=== PATIENT | male | born 1965 | race Caucasian/White ===

== ENCOUNTER 2017-04-24 17:26 | Observation (INO) ==
--- NOTE | 2017-04-24 17:42 | Emergency Department Note ---
Disposition Clinical Impression: Symptomatic anemia, Thrombocytopenia, Elevated alkaline phosphatase level Disposition: Admitted As Inpatient Condition: Good General Adult HPI - General Chief complaint: ED Recheck/Abnormal Lab/Rx Stated complaint: Needs Lab work done Time Seen by Provider: 04/24/17 17:34 Source: patient Limitations: no limitations - History of Present Illness HPI Narrative: 51-year-old male history of cirrhosis followed at [facility] for gastroenterology who presents to the ER requesting lab work. Patient reports lower 70 swelling for the last 2 weeks. Patient was ready to leave town and told his doctor about the symptoms and was told to come get lab work drawn. He reports shortness of breath at home with exertion as well as nausea and dry heaving. He takes lactulose daily but did miss one week of it. No diarrhea or constipation. He denies fevers, chest pain. No history of intra-abdominal surgeries. No other complaints. Pt Subjective Complaint: Requesting labwork Onset (ago): week(s) Location: lower extremity Radiation: non-radiation Pain Severity: mild Pain Scale: 2 Quality: aching Consistency: constant Improves with: nothing Worsens with: nothing Associated symptoms: Reports: nausea/vomiting, shortness of breath. Denies: chest pain, fever/chills Treatments Prior to Arrival: none - Related Data Home Medications Medication Instructions Recorded Confirmed Atorvastatin Calcium [Lipitor] 20 mg PO HS 10/26/16 04/24/17 Bupropion HCl [Wellbutrin Xl] 300 mg PO DAILY 10/26/16 04/24/17 Ferrous Sulfate 325 mg PO BIDWM 10/26/16 04/24/17 Lisinopril 2.5 mg PO DAILY 10/26/16 04/24/17 Metformin HCl [Glucophage] 1,000 mg PO DAILY 10/26/16 04/24/17 SitaGLIPtin [Januvia] 100 mg PO DAILY 10/26/16 04/24/17 Ascorbic Acid [Vitamin C] 500 mg PO DAILY 04/24/17 04/24/17 Cholecalciferol (D-3) [Vitamin D] 1,000 unit PO DAILY 04/24/17 04/24/17 Cyanocobalamin (Vitamin B-12) 1,000 mcg PO DAILY 04/24/17 04/24/17 [Vitamin B12] Lactulose 20 gm PO DAILY 04/24/17 04/24/17 Multivitamin [Multi-Day Vitamins] 1 each PO DAILY 04/24/17 04/24/17 Ursodiol [Joshua Forte] 500 mg PO BID 04/24/17 04/24/17 Allergies Allergy/AdvReac Type Severity Reaction Status Date / Time No Known Allergies Allergy Verified 10/26/16 12:52 All systems ED: reviewed and negative except as stated. Constitutional: Denies: fever Cardiovascular: Denies: chest pain Respiratory: Reports: dyspnea. Denies: cough Gastrointestinal: Reports: nausea. Denies: abdominal pain, vomiting, diarrhea Musculoskeletal: Reports: other (lower extremity swelling) Past Medical History - Past Medical History Attestation: Yes The following information was validated with the patient. Source: patient Medical history: Reports: cirrhosis, diabetes, other Psychiatric history: Reports: no psych history - Social History Smoking Status: Current every day smoker Smokeless Tobacco Status: No Alcohol use: Reports: none Drug use: Reports: none Physical Exam - General Limitations: no limitations General appearance: alert, in no apparent distress - Head Head exam: atraumatic, normocephalic, normal inspection - Eye Eye exam: Present: normal appearance, EOMI - ENT ENT exam: normal exam - Neck Neck exam: Present: normal inspection, full ROM - Chest Chest inspection: Present: normal inspection, symmetric chest wall rise - Respiratory Respiratory exam: Present: normal lung sounds bilaterally - Cardiovascular Cardiovascular exam: Present: regular rate, normal rhythm, normal heart sounds - Abdominal Exam Abdominal exam: Present: soft, Non-Tender. Absent: tenderness - Extremities Exam Extremities exam: Present: normal inspection, full ROM - Expanded Upper Extremity Exam Shoulder exam: Present: normal inspection, full ROM Arm exam: Present: normal inspection, full ROM Elbow exam: Present: normal inspection, full ROM Forearm/Wrist exam: Present: normal inspection, full ROM Hand exam: Present: normal inspection, full ROM - Expanded Lower Extremity Exam Hip/Pelvis exam: Present: normal inspection, full ROM Upper leg exam: Present: normal inspection, full ROM Knee exam: Present: normal inspection, full ROM Lower leg exam: Present: normal inspection, full ROM Ankle exam: Present: normal inspection, full ROM Foot/toe exam: Present: normal inspection, full ROM Neurovascular/Tendon exam: Absent: motor deficit, sensory deficit - Neurological Exam Neurological exam: Present: alert, other (GCA 15. Nonfocal neurologic exam. FARAH equally) - Psychiatric Psychiatric exam: Present: normal affect, normal mood - Skin Skin exam: Present: warm, dry, intact, normal color Course Course Narrative: Patient seen and examined. Does have lower extremity edema bilaterally. We will obtain baseline labs including LFTs, INR, BNP, EKG and chest x-ray. - Reevaluation(s) Reevaluation #1: Discussed results of lab work and imaging with the patient and family. He denies any hematemesis, melena, hematochezia, hematuria or hemoptysis. He is in agreement with staying in the hospital. He is Hemoccult negative here on exam. Patient ordered 1 unit of red blood cells to transfuse. Vital Signs Temperature 98.2 F 04/24/17 17:29 Pulse Rate 107 04/24/17 17:29 Respiratory Rate 16 04/24/17 17:29 Blood Pressure 105/62 04/24/17 17:29 O2 Sat by Pulse Oximetry 100 04/24/17 17:29 Temperature 98.2 F 04/24/17 17:29 Pulse Rate 101 04/24/17 19:43 Respiratory Rate 16 04/24/17 20:00 Blood Pressure 112/62 04/24/17 20:00 O2 Sat by Pulse Oximetry 96 04/24/17 19:43 Oxygen Delivery Oxygen Delivery Room Air Medical Decision Making - MDM Narrative Medical decision making narrative: 51-year-old male presents to the ER due to dyspnea on exertion and lower show any swelling. History of cirrhosis follows with [facility] gastroenterology. His labs here demonstrate anemia with a hemoglobin of 6.3. He is Hemoccult negative here. He denies hemoptysis, melena, hematochezia, hematemesis. Patient will be admitted for symptomatic anemia. Type and screened and ordered to transfuse 1 unit starting in the emergency department. - Lab Data Lab results reviewed: Yes I reviewed the patient's lab results. Result diagrams: 04/24/17 17:47 04/24/17 17:47 Lab Results 04/24/17 04/24/17 04/24/17 Range/Units 17:47 17:47 17:47 WBC 4.6 (4.3-11.1) K/mcL RBC 2.04 L (4.19-5.50) M/mcL Hgb 6.3 L (12.9-16.9) g/dL Hct 19.4 L (37.5-50.1) % MCV 95.1 (83.0-100.0) fL MCH 30.9 (28.0-33.3) pg MCHC 32.5 (31.6-35.5) g/dL RDW 16.3 H (11.5-14.5) % Plt Count 66 L (140-400) K/mcL MPV 10.4 (9.4-12.4) fL Immature Gran % 0.6 (0-4) % Seg Neutrophils % 46.3 % Lymphocytes % 31.5 % Monocytes % 19.0 % Eosinophils % 2.2 % Basophils % 0.4 % Neutrophils # 2.1 (1.6-8.9) K/mcL Lymphocytes # 1.5 (0.6-4.6) K/mcL Monocytes # 0.9 (0.0-1.3) K/mcL Eosinophils # 0.1 (0.0-0.6) K/mcL Basophils # 0.0 (0.0-0.2) K/mcL Reactive Lymphocytes Present A (Not Present) Platelet Estimate Decreased L (Normal) Immature Plt Fraction 2.8 (1.1-6.1) % Polychromasia 1+ A (Not Present) Hypochromasia Present A (Not Present) PT 12.1 (9.4-12.1) Seconds INR 1.1 Sodium 134 L (136-145) mEq/L Potassium 4.3 (3.5-4.5) mEq/L Chloride 102 (98-109) mEq/L Carbon Dioxide 24 (19-29) mEq/L BUN 27 H (8-26) mg/dL Creatinine 1.24 (0.72-1.25) mg/dL Est GFR ( Amer) > 60 (> 60) Est GFR (Non-Af Amer) > 60 (> 60) BUN/Creatinine Ratio 22 (6-26) Glucose 230 H (70-99) mg/dL Calculated Osmolality 290 (280-300) Calcium 10.2 (8.6-10.8) mg/dL Total Bilirubin 0.5 (0.2-1.2) mg/dL AST 28 (5-34) Units/L ALT 12 (0-55) Units/L Alkaline Phosphatase 317 H (38-126) Units/L Ammonia (18-72) mcmol/L B-Natriuretic Peptide (0-100) pg/mL Serum Total Protein 6.2 (6.0-8.3) g/dL Albumin 2.1 L (3.5-5.0) g/dL Globulin 4.1 H (2.4-3.5) g/dL Albumin/Globulin Ratio 0.5 L (1.1-2.2) Blood Type Antibody Screen Crossmatch 04/24/17 04/24/17 04/24/17 Range/Units 17:47 17:49 19:09 WBC (4.3-11.1) K/mcL RBC (4.19-5.50) M/mcL Hgb (12.9-16.9) g/dL Hct (37.5-50.1) % MCV (83.0-100.0) fL MCH (28.0-33.3) pg MCHC (31.6-35.5) g/dL RDW (11.5-14.5) % Plt Count (140-400) K/mcL MPV (9.4-12.4) fL Immature Gran % (0-4) % Seg Neutrophils % % Lymphocytes % % Monocytes % % Eosinophils % % Basophils % % Neutrophils # (1.6-8.9) K/mcL Lymphocytes # (0.6-4.6) K/mcL Monocytes # (0.0-1.3) K/mcL Eosinophils # (0.0-0.6) K/mcL Basophils # (0.0-0.2) K/mcL Reactive Lymphocytes (Not Present) Platelet Estimate (Normal) Immature Plt Fraction (1.1-6.1) % Polychromasia (Not Present) Hypochromasia (Not Present) PT (9.4-12.1) Seconds INR Sodium (136-145) mEq/L Potassium (3.5-4.5) mEq/L Chloride (98-109) mEq/L Carbon Dioxide (19-29) mEq/L BUN (8-26) mg/dL Creatinine (0.72-1.25) mg/dL Est GFR ( Amer) (> 60) Est GFR (Non-Af Amer) (> 60) BUN/Creatinine Ratio (6-26) Glucose (70-99) mg/dL Calculated Osmolality (280-300) Calcium (8.6-10.8) mg/dL Total Bilirubin (0.2-1.2) mg/dL AST (5-34) Units/L ALT (0-55) Units/L Alkaline Phosphatase (38-126) Units/L Ammonia 22 (18-72) mcmol/L B-Natriuretic Peptide 14 (0-100) pg/mL Serum Total Protein (6.0-8.3) g/dL Albumin (3.5-5.0) g/dL Globulin (2.4-3.5) g/dL Albumin/Globulin Ratio (1.1-2.2) Blood Type A POSITIVE Antibody Screen NEGATIVE Crossmatch See Detail - Radiology Data Radiology results reviewed: Yes I reviewed the patient's radiology results. Chest X-Ray 04/24/17 17:41 IMPRESSION: 1. No active pulmonary disease. D/ / Jose Juan Bautista MD / Jose Juan Bautista MD Interpreting Provider: Jose Juan Bautista MD - EKG Data EKG #1 EKG attestation: Yes I reviewed and interpreted this EKG. EKG results narrative: EKG demonstrates sinus rhythm with a rate of 99 bpm. Normal axis. Normal intervals. No ST elevations or depressions. No acute ischemic findings. S.B.A.RValarie - [email or web address] Situation: Demographics, MOA Background: Presenting Complaint, Relevant PMH, Meds, & Allergies Assessment: Vital Signs, Course and respsone to treatment, Exam Concerns, Patient/Family Expectation, Pertinant Lab Results, Outstanding Labs Recommendation: Barrier(s) to disposition, Recommendation based on pending studies, treatments, or consults S.B.A.RValarie Report Given to: Dr. Nacho Smith Repor Time: 19:27 Attestation Statement - Attestation Attestation: I examined this patient and my medical decision-making was reviewed with the Resident Physician. I agree with the documented findings, disposition and treatment plan as described except to the extent set forth below. [id number] time provided in conjunction with the resident physician Dr. Ramirez He complains of increased peripheral edema and dyspnea. He has a history of hepatic cirrhosis. Appears in no acute distress on exam. Plan of care and management discussed by me with resident physician
[2017-04-24 18:00] LABS: Immature Platelets 2.8 % (1.1-6.1)
[2017-04-24 18:07] LABS: INR 1.1; Prothrombin Time 12.1 Seconds (9.4-12.1)
[2017-04-24 18:08] LABS: Basophils % 0.4 %; Eosinophils # 0.1 K/mcL (0.0-0.6); Eosinophils % 2.2 %; Hematocrit 19.4 % (37.5-50.1); Immature Granulocytes % 0.6 % (0-4); Lymphocytes # 1.5 K/mcL (0.6-4.6); Lymphocytes % 31.5 %; Mean Corpuscular HGB Conc 32.5 g/dL (31.6-35.5); Mean Corpuscular Hemoglobin 30.9 pg (28.0-33.3); Mean Corpuscular Volume 95.1 fL (83.0-100.0); Mean Platelet Volume 10.4 fL (9.4-12.4); Monocytes # 0.9 K/mcL (0.0-1.3); Neutrophils # 2.1 K/mcL (1.6-8.9); Red Blood Count 2.04 M/mcL (4.19-5.50); Red Cell Distribution Width 16.3 % (11.5-14.5); Segmented Neutrophils % 46.3 %
[2017-04-24 18:13] LABS: Alanine Aminotransferase 12 Units/L (0-55); Albumin 2.1 g/dL (3.5-5.0); Albumin/Globulin Ratio 0.5 (1.1-2.2); Alkaline Phosphatase 317 Units/L (38-126); Aspartate Amino Transferase 28 Units/L (5-34); BUN/Creatinine Ratio 22 (6-26); Bilirubin,Total 0.5 mg/dL (0.2-1.2); Blood Urea Nitrogen 27 mg/dL (8-26); Calcium 10.2 mg/dL (8.6-10.8); Carbon Dioxide 24 mEq/L (19-29); Chloride 102 mEq/L (98-109); Globulin 4.1 g/dL (2.4-3.5); Glucose 230 mg/dL (70-99); Osmolality,Calculated 290 (280-300); Potassium 4.3 mEq/L (3.5-4.5); Sodium 134 mEq/L (136-145); Total Protein 6.2 g/dL (6.0-8.3); eGFR For African Americans > 60 (> 60); eGFR For Non-African Americans > 60 (> 60)
[2017-04-24 18:29] LABS: Hemoglobin 6.3 g/dL (12.9-16.9); Platelet Count 66 K/mcL (140-400)
[2017-04-24 18:31] LABS: Hypochromasia Present (Not Present); Platelet Estimate Decreased (Normal); Polychromasia 1+ (Not Present); Reactive Lymphocytes Present (Not Present)
[2017-04-24] MEDS ORDERED: 0.9 % Sodium Chloride 1,000 ML IVC ONE (19:15)
[2017-04-24] MEDS ORDERED: D5% in Water 1,000 ML IVC PRN (20:54)
[2017-04-24] MEDS ORDERED: Naloxone 0.4 MG/ML INJ IVP PRN (20:54)
[2017-04-24] MEDS ORDERED: Dextrose Gel 15 GM PO PRN ×2 (20:54)
[2017-04-24] MEDS ORDERED: *HR* Dextrose 50 % in Water (Syg) 50 ML SYRINGE IVP PRN (20:54)
[2017-04-24] MEDS ORDERED: Ondansetron 4 MG/2 ML VIAL IVP PRN (20:54)
--- NOTE | 2017-04-24 20:54 | Internal Med History&Physical ---
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 Currently symptomatic from anemia with exertional fatigue , proximal muscle pain, and tachycardia. His platelet count and hemoglobin have been consistently dropping over the past several months. He denies any other source of bleeding including GI, , pulmonary. Hemoccult negative. We will obtain peripheral smear We will obtain iron studies, ferritin, folate, B12, LDH, uric acid Transfuse 1 unit PRBCs and reevaluate hemoglobin in the morning If patient remains stable with appropriate repletion of PRBCs patient can follow -up with port engineer at [facility] Continue patient home iron repletion (2) Primary biliary cholangitis Current visit: Yes Status: Acute Patient is stable at this time with evidence of slowly decreasing hemoglobin and thrombocytopenia. Patient currently under the care of a port engineer at [facility]. 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 Currently under the care of a port engineer at [facility]. Patient receives periodic lab work evaluating hepatic function. CT performed in 02/09 showed hepatosplenomegaly, portal hypertension, and mesenteric and retroperitoneal varices. 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 Qualified Code(s): K74.3 - Primary biliary cirrhosis (4) Diabetes mellitus type 2, uncomplicated Current visit: Yes Status: Acute We will hold oral medications Start low-dose insulin sliding scale subcutaneous Qualifiers: Diabetes mellitus [facility] insulin use: without computer terminal operator use Qualified Code(s): E11.9 - Type 2 diabetes mellitus without complications (5) DVT prophylaxis Current visit: Yes Status: Acute 5000 units heparin subcutaneous twice a day Patient's platelet level currently is 66, a platelet level continues to fall will consider stopping heparin Internal Medicine - H&P: HPI Chief complaint: Anemia Admitted From: Home Plans for Post Hospital Care: Home History of present illness: Mr. Marquis is a 51 year old male with history of type 2 diabetes, liver cirrhosis, and primary biliary cholangitis who presents to [facility] after having continued exertional fatigue and weakness at home. He is having continued and worsened exertional fatigue and shortness of breath and was told by his port engineer to seek assessment at the hospital. He reports that the fatigue has worsened over the last couple weeks and appears to coincide with his continued decline of hemoglobin. He states that in this time he has been feeling significant pain in his proximal lower extremities whenever walking upstairs. He denies any potential source of bleeding, he denies hematochezia or melena, he denies hematemesis (though does report some nausea and dry heaving ), he denies hematuria and hemoptysis. He states that maybe about a month ago he noticed some small erythematous spots consistent with petechiae on his skin, but this has since gone away. He denies fever or chills, denies lightheadedness , denies chest pain, denies shortness of breath at rest, denies exertional chest pain. Since diagnosis of PBC about 3 months ago he reports about a 30 pound weight loss and drenching night sweats. He has been under the care of a port engineer at [facility] for his PBC for the past several months who has been performing labs every month with last endoscopy performed roughly 1 month ago. Past Med Surg Social Fam HX - Past Medical History Medical history: cirrhosis, diabetes, other (Primary biliary cholangitis) Psychiatric history: no psych history - Social History Smoking Status: Current every day smoker Smokeless Tobacco Status: No Alcohol use: none Drug use: none - Family History Mother Adopted: No Living Status: Still Living Hx Family Cardiac Disorders: Yes Hx Family Respiratory Disorders: No Hx Family Cancer: Yes (sister lymphoma) Hx Family GI Disorders: No Hx Family Genitourinary Disorders: No Hx Family Endocrine Disorder: No Hx Family Musculoskeletal Disorders: No Hx Family Neuromuscular Disorders: No Hx Family Neurologic Disorders: No Hx Family HEENT Disorders: No Hx Family Autoimmune Disorders: No Hx Family Reproductive Disorders: No Hx Family Psychosocial Disorders: No Hx Family Medical Disorders: No Internal Medicine - H&P: Meds Atorvastatin Calcium [Lipitor] 20 mg PO HS 10/26/16 [History] Bupropion HCl [Wellbutrin Xl] 300 mg PO DAILY 10/26/16 [History] Ferrous Sulfate 325 mg PO BIDWM 10/26/16 [History] Lisinopril 2.5 mg PO DAILY 10/26/16 [History] Metformin HCl [Glucophage] 1,000 mg PO DAILY 10/26/16 [History] SitaGLIPtin [Januvia] 100 mg PO DAILY 10/26/16 [History] Ascorbic Acid [Vitamin C] 500 mg PO DAILY 04/24/17 [History] Cholecalciferol (D-3) [Vitamin D] 1,000 unit PO DAILY 04/24/17 [History] Cyanocobalamin (Vitamin B-12) [Vitamin B12] 1,000 mcg PO DAILY 04/24/17 [History ] Lactulose 20 gm PO DAILY 04/24/17 [History] Multivitamin [Multi-Day Vitamins] 1 each PO DAILY 04/24/17 [History] Ursodiol [Joshua Forte] 500 mg PO BID 04/24/17 [History] 3 Allergy/AdvReac Type Severity Reaction Status Date / Time No Known Allergies Allergy Verified 10/26/16 12:52 Review of systems: Gen: Denies fever, denies chills, reports weight loss, denies weakness, reports fatigue, reports night sweats CV: Denies chest pain, reports exertional shortness of breath, denies exertional chest pain, denies palpitations Resp: Denies shortness of breath at rest, denies dyspnea, denies pleuritic pain , denies coughing GI: Reports nausea with dry heaves, denies abdominal pain, denies constipation, denies diarrhea, denies hematochezia, denies melena MSK: Denies muscle weakness, reports lower extremity proximal muscle pain with exertion Neuro: Denies headache, denies confusion, denies focal weakness, denies numbness , denies tingling, denies vision changes Skin: Reports protect the eye one month ago, denies bruising, denies rash, reports subjective swelling : Denies flank pain, denies dysuria, denies hematuria - Constitutional Vitals: Temp Pulse Resp BP Pulse Ox 98.2 F 101 16 112/62 96 04/24/17 17:29 04/24/17 19:43 04/24/17 20:00 04/24/17 20:00 04/24/17 19:43 Exam: General: Cooperative, pleasant, no acute distress, alert and oriented 3, answers questions appropriately, proximal muscle wasting HEENT: Normocephalic, atraumatic, neck supple, trachea midline, Conjunctiva pink , sclera anicteric, PERRL, oral mucosa moist, no orophargeal erythema or exudates, no gingival petechiae noted Respiratory: No accessory muscle usage, clear to auscultation bilaterally, no wheezes/rhonchi/rales appreciated Cardiovascular: Tachycardia, regular rhythm, S1 and S2 present, no murmurs/rubs/ gallops/clicks appreciated GI/abdominal: Nondistended, mild tenderness in epigastric region, soft, normal bowel sounds, no peritoneal signs, mild hepatomegaly Extremities: No calf tenderness, no pedal edema appreciated, warm, lower extremity pulses palpable and symmetrical Neurological: Alert and oriented 3, no facial droop, no focal deficits Skin: Dry, intact, normal color, no jaundice observed, no spider angiomata, no gynecomastia, no petechiae Internal Med - H&P Results - Labs CBC & Chem 7: 04/24/17 17:47 04/24/17 17:47 <Carlos Griffith - Last Filed: 04/24/17 23:39> Date of Encounter: 04/24/17 Internal Medicine - H&P: HPI History of present illness: Mr. Marquis is a 51 year old male All Systems PM: A 10-system review of systems was performed and is negative for pertinent findings except as documented above in the HPI. - Constitutional Vitals: Temp Pulse Resp BP Pulse Ox 98.7 F 109 16 110/62 96 04/24/17 21:54 04/24/17 21:54 04/24/17 21:54 04/24/17 21:54 04/24/17 20:58 Internal Med - H&P Results - Labs CBC & Chem 7: 04/24/17 17:47 04/24/17 17:47 - Attending Attestation I have seen and examined the patient independently. I have discussed that with resident Dr Neri regarding management plan. I have reviewed and agree with the documentation. Pt admitted for anemia. His old chart has been reviewed and patient has a progressive anemia in recent several months. Previous anemia workup shows low iron and high ferritin, consistent with anemia caused by chronic disease. Further history shows the patient has PBC with low fever, night sweats, and body weight loss in recent 6 months, which may explain the inflammation disease caused anemia. Patient is following with GI specialist in [facility] for PBC. Will transfuse patient for low hemoglobin, follow-up H&H, patient will follow-up with GI in [facility] for further management.
[2017-04-24] MEDS ORDERED: Insulin LISPRO 300 UNITS/3 ML VIAL SQ SCH (21:00)
[2017-04-24 21:28] LABS: % Iron Saturation 14 % (20-55); Iron 41 mcg/dL (65-175); Lactate Dehydrogenase 316 Units/L (159-327); Transferrin 215 mg/dL (174-364); Uric Acid 7.7 mg/dL (3.5-7.2)
[2017-04-24 21:48] LABS: Ferritin 355 ng/ml (22-275)
[2017-04-24] MEDS ORDERED: Melatonin 3 MG TABLET PO PRN (22:09)
[2017-04-24] MEDS: (Ursodiol [Urso Forte] 500 MG) PO SCH (23:12)
[2017-04-25 05:13] LABS: Immature Granulocytes % 1.1 % (0-4); Mean Platelet Volume 10.3 fL (9.4-12.4)
[2017-04-25 05:15] LABS: Basophils % 0.6 %; Eosinophils # 0.1 K/mcL (0.0-0.6); Eosinophils % 2.1 %; Hemoglobin 6.5 g/dL (12.9-16.9); Immature Platelets 2.6 % (1.1-6.1); Lymphocytes # 1.3 K/mcL (0.6-4.6); Lymphocytes % 26.6 %; Mean Corpuscular Hemoglobin 29.5 pg (28.0-33.3); Mean Corpuscular Volume 95.5 fL (83.0-100.0); Monocytes # 0.8 K/mcL (0.0-1.3); Monocytes % 16.9 %; Neutrophils # 2.5 K/mcL (1.6-8.9); Red Cell Distribution Width 17.6 % (11.5-14.5); Segmented Neutrophils % 52.7 %
[2017-04-25 05:17] LABS: Platelet Count 62 K/mcL (140-400)
[2017-04-25 05:41] LABS: Alanine Aminotransferase 9 Units/L (0-55); Albumin/Globulin Ratio 0.5 (1.1-2.2); Alkaline Phosphatase 305 Units/L (38-126); Aspartate Amino Transferase 28 Units/L (5-34); BUN/Creatinine Ratio 23 (6-26); Bilirubin,Total 0.7 mg/dL (0.2-1.2); Blood Urea Nitrogen 24 mg/dL (8-26); Calcium 9.8 mg/dL (8.6-10.8); Carbon Dioxide 24 mEq/L (19-29); Chloride 105 mEq/L (98-109); Globulin 3.6 g/dL (2.4-3.5); Glucose 136 mg/dL (70-99); Osmolality,Calculated 288 (280-300); Potassium 4.2 mEq/L (3.5-4.5); Sodium 136 mEq/L (136-145); Total Protein 5.5 g/dL (6.0-8.3); eGFR For African Americans > 60 (> 60); eGFR For Non-African Americans > 60 (> 60)
[2017-04-25 05:44] LABS: Albumin 1.9 g/dL (3.5-5.0)
[2017-04-25] MEDS ORDERED: *HR* Heparin 5,000 UNIT/ML VIAL SQ SCH (06:00)
[2017-04-25] MEDS: (Ursodiol [Urso Forte] 500 MG) PO SCH (08:03)
[2017-04-25] MEDS: Insulin LISPRO 300 UNITS/3 ML VIAL SQ SCH ×2 (08:03→11:34)
[2017-04-25] MEDS ORDERED: Ascorbic Acid 500 MG TABLET PO SCH (09:00)
[2017-04-25] MEDS ORDERED: BuPROPion XL (24 HR) 150 MG TABLET PO SCH (09:00)
[2017-04-25] MEDS ORDERED: Multivit/Ca/Min/Fe/FA 1 TAB TABLET PO SCH (09:00)
[2017-04-25] MEDS ORDERED: Cyanocobalamin (B-12) 1,000 MCG TABLET PO SCH (09:00)
[2017-04-25] MEDS ORDERED: Cholecalciferol (D-3) 1,000 UNIT TABLET PO SCH (09:00)
[2017-04-25] MEDS ORDERED: 0.9 % Sodium Chloride 500 ML ONE (09:01)
--- NOTE | 2017-04-25 14:41 | Discharge Summary ---
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 Qualified Code(s): K74.3 - Primary biliary cirrhosis (5) Primary biliary cholangitis Priority: Secondary Status: Acute - Discharge Medications Prescriptions: Omeprazole [PriLOSEC] 40 mg PO DAILY@0630 #30 Home Medications: Atorvastatin Calcium [Lipitor] 20 mg PO HS 10/26/16 [History] Bupropion HCl [Wellbutrin Xl] 300 mg PO DAILY 10/26/16 [History] Ferrous Sulfate 325 mg PO BIDWM 10/26/16 [History] Lisinopril 2.5 mg PO DAILY 10/26/16 [History] Metformin HCl [Glucophage] 1,000 mg PO DAILY 10/26/16 [History] SitaGLIPtin [Januvia] 100 mg PO DAILY 10/26/16 [History] Ascorbic Acid [Vitamin C] 500 mg PO DAILY 04/24/17 [History] Cholecalciferol (D-3) [Vitamin D] 1,000 unit PO DAILY 04/24/17 [History] Cyanocobalamin (Vitamin B-12) [Vitamin B12] 1,000 mcg PO DAILY 04/24/17 [History ] Lactulose 20 gm PO DAILY 04/24/17 [History] Multivitamin [Multi-Day Vitamins] 1 each PO DAILY 04/24/17 [History] Ursodiol [Joshua Forte] 500 mg PO BID 04/24/17 [History] Omeprazole [PriLOSEC] 40 mg PO DAILY@0630 #30 04/25/17 [Rx] Allergies/Adverse Reactions: 3 Allergy/AdvReac Type Severity Reaction Status Date / Time No Known Allergies Allergy Verified 10/26/16 12:52 Date of admission: 04/24/17 19:44 Primary care physician: Debora Sutton CNP Consults: 04/24/17 21:09 Consult to Nutrition [CONS] Routine Comment: Consulting Provider: NUTRITION Reason for Dietary Consult: Diet Education - Patient Status Disposition: Home, Self-Care Condition: Good Overall status at discharge: patient is back to baseline - Discharge Instructions Instructions: Thrombocytopenic Purpura (DC), Anemia (GEN), Thrombocytopenia (DC ) Follow Up With: Debora Sutton CNP [Primary Care Provider] - 05/06/17 1:45 pm Additional Instructions: Follow-up with primary care physician within the next 7 days, follow up with GI within the next 1-2 weeks and follow-up with hematology within the next 1-2 weeks. Continue iron supplements and start omeprazole 40 mg daily. - Diet and Activity Activity: increase activity as tolerated Diet: regular diet Hospital course: Mr. Marquis is a 51 year old male with history of tobacco use, type 2 diabetes not insulin-dependent, liver cirrhosis, and primary biliary cholangitis who presented to [facility] after having continued exertional fatigue and weakness at home. He was having continued and worsened exertional fatigue and shortness of breath and was told by his base engineer to seek assessment at the hospital. He reported that the fatigue has worsened over the last couple weeks and appears to coincide with his continued decline of hemoglobin. He stated that he was experiencing significant pain in his proximal lower extremities whenever walking upstairs. He denied any potential source of bleeding, he denies hematochezia or melena, he denied hematemesis ( though does report some nausea and dry heaving), he denied hematuria and hemoptysis. He stated that maybe about a month ago he noticed some small erythematous spots consistent with petechiae on his skin, but this has since gone away. He denied fever or chills, denied lightheadedness, denies chest pain , denies shortness of breath at rest, denies exertional chest pain. Since diagnosis of PBC about 3 months ago he reports about a 30 pound weight loss. He has been under the care of a base engineer at [facility] for his PBC for the past several months who has been performing labs every month with last endoscopy performed roughly 1 month ago without any acute finding. Had a colonoscopy about 3 years ago. Hemoglobin upon admission was 6.3, received 3 units of blood. Was offered the option to stay an additional day at the hospital and monitor his hemoglobin prefers to be discharged at this point and follow-up as an outpatient with GI and hematology. Hemoglobin was 8.6 prior to discharge Time spent discussing smoking cessation with patient: 3 to 10 minutes - Time Spent with Patient Total time spent providing and/or coordinating discharge services: Greater than 30 minutes (40 min) - Constitutional Vitals: Temp Pulse Resp BP Pulse Ox 98.1 F 88 12 99/58 96 04/25/17 13:03 04/25/17 13:03 04/25/17 13:03 04/25/17 13:03 04/25/17 13:03 General appearance: Present: A&O X 3, underweight - Head Head exam: Present: atraumatic, normocephalic - Eye Eye exam: Present: PERRL, conjuntiva pink, sclera anicteric Pupils: Present: PERRL - Neck Neck exam general surgery: Present: supple, trachea midline. Absent: lymphadenopathy - Respiratory Respiratory exam: Present: CTAB. Absent: accessory muscle use, rales, rhonchi, wheezes - Cardiovascular Cardiovascular exam: Present: RRR, +S1, +S2. Absent: diastolic murmur, gallop, rubs, systolic murmur - GI/Abdominal GI/Abdominal exam: Present: normal bowel sounds, soft, no peritoneal signs. Absent: distended, tenderness - Extremities Exam Extremities exam: Present: warm, radial pulses palpable and symmetrical. Absent : calf tenderness, cyanotic, pedal edema - Neurological Exam Neurological exam: Present: CN II-XII intact, oriented X3, no focal deficits. Absent: pronater drift, facial droop, speech deficit - Skin Skin exam: Present: dry, intact
[2017-04-25 15:39] VITALS: BP 100/58
[2017-04-25 16:01] LABS: Basophils % 0.2 %; Eosinophils # 0.1 K/mcL (0.0-0.6); Eosinophils % 2.1 %; Hematocrit 27.1 % (37.5-50.1); Hemoglobin 8.6 g/dL (12.9-16.9); Immature Granulocytes % 0.4 % (0-4); Immature Platelets 3.1 % (1.1-6.1); Lymphocytes # 1.3 K/mcL (0.6-4.6); Mean Corpuscular HGB Conc 31.7 g/dL (31.6-35.5); Mean Corpuscular Hemoglobin 29.2 pg (28.0-33.3); Mean Corpuscular Volume 91.9 fL (83.0-100.0); Monocytes # 0.8 K/mcL (0.0-1.3); Monocytes % 15.2 %; Neutrophils # 3.1 K/mcL (1.6-8.9); Platelet Count 65 K/mcL (140-400); Red Blood Count 2.95 M/mcL (4.19-5.50); Red Cell Distribution Width 19.1 % (11.5-14.5); Segmented Neutrophils % 58.1 %
[2017-04-25 16:03] LABS: Platelet Estimate Decreased (Normal)
--- NOTE | 2017-04-25 16:59 | Electrocardiograph Report ---
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
[2017-04-25] MEDS ORDERED: Lactulose Oral Soln 20 GM/30 ML UDC PO SCH (21:00)
== END 2017-04-25 17:15 | disposition home or self-care (01) ==
LOC: EMEROO 17:26 → 3ANU 17:26 → SUATTDRO 19:44 → 3ANU 20:20
PROVIDERS: ADMIT Internal Medicine; ATTEND Internal Medicine

== ENCOUNTER 2017-05-14 19:07 | Inpatient (IN) ==
--- NOTE | 2017-05-14 19:55 | Emergency Department Note ---
Disposition Clinical Impression: Symptomatic anemia, Hepatosplenomegaly Disposition: Admitted As Inpatient Condition: Good General Adult HPI - General Chief complaint: ED Recheck/Abnormal Lab/Rx Stated complaint: Hemoglobin 7,platlets 63 Time Seen by Provider: 05/14/17 19:15 Source: patient Limitations: no limitations Nursing Notes Reviewed: Yes Vital Signs Reviewed: Yes - History of Present Illness HPI Narrative: Patient presents to the ED with the chief complaint of low hemoglobin. Patient has a history of PBC recently diagnosed. Last transfusion was about 3 months ago. Has had gradually increasing fatigue. Poor appetite. Weight loss within the last 6 months of almost 50 pounds. Some associated diffuse abdominal pain. Nausea and epigastric abdominal pain after eating. No melena, hematochezia, hematemesis. States he just feels very weak and rundown. Pain Scale: 0 - Related Data Home Medications Medication Instructions Recorded Confirmed Atorvastatin Calcium [Lipitor] 20 mg PO HS 10/26/16 05/14/17 Bupropion HCl [Wellbutrin Xl] 300 mg PO DAILY 10/26/16 05/14/17 Ferrous Sulfate 325 mg PO BIDWM 10/26/16 05/14/17 Lisinopril 2.5 mg PO DAILY 10/26/16 05/14/17 Metformin HCl [Glucophage] 1,000 mg PO DAILY 10/26/16 05/14/17 SitaGLIPtin [Januvia] 100 mg PO DAILY 10/26/16 05/14/17 Ascorbic Acid [Vitamin C] 500 mg PO DAILY 04/24/17 05/14/17 Cholecalciferol (D-3) [Vitamin D] 1,000 unit PO DAILY 04/24/17 05/14/17 Cyanocobalamin (Vitamin B-12) 1,000 mcg PO DAILY 04/24/17 05/14/17 [Vitamin B12] Lactulose 20 gm PO DAILY 04/24/17 05/14/17 Multivitamin [Multi-Day Vitamins] 1 each PO DAILY 04/24/17 05/14/17 Ursodiol [Joshua Forte] 500 mg PO BID 04/24/17 05/14/17 Previous Rx's Medication Instructions Recorded Omeprazole [PriLOSEC] 40 mg PO DAILY@0630 #30 04/25/17 Allergies Allergy/AdvReac Type Severity Reaction Status Date / Time No Known Allergies Allergy Verified 10/26/16 12:52 All systems ED: reviewed and negative except as stated. Constitutional: Reports: weakness. Denies: fever Eyes: Denies: vision change Cardiovascular: Denies: chest pain Respiratory: Denies: dyspnea Gastrointestinal: Reports: abdominal pain, nausea Genitourinary: Denies: dysuria Musculoskeletal: Denies: back pain Neurological: Denies: headache Endocrine: Reports: fatigue Hematological/Lymphatic: Reports: easy bruising Past Medical History - Past Medical History Attestation: Yes The following information was validated with the patient. Source: patient Medical history: Reports: cirrhosis, diabetes, other Psychiatric history: Reports: no psych history - Social History Smoking Status: Former smoker Smokeless Tobacco Status: No Alcohol use: Reports: none Drug use: Reports: none Physical Exam - General Limitations: no limitations General appearance: alert, in no apparent distress, cachectic - Head Head exam: atraumatic, normocephalic, normal inspection - Eye Eye exam: Present: normal appearance, PERRL, EOMI, scleral icterus - ENT ENT exam: normal exam, normal oropharynx, mucous membranes dry - Neck Neck exam: Present: normal inspection, full ROM, trachea midline - Chest Chest inspection: Present: normal inspection, symmetric chest wall rise - Respiratory Respiratory exam: Present: normal lung sounds bilaterally - Cardiovascular Cardiovascular exam: Present: normal rhythm, tachycardia, normal heart sounds. Absent: regular rate - Abdominal Exam Abdominal exam: Present: soft, tenderness, guarding, normal bowel sounds, organomegaly (hepatospleno). Absent: distention, rebound, rigidity Abdominal tenderness: Present: diffuse - Extremities Exam Extremities exam: Present: normal inspection, full ROM. Absent: tenderness, pedal edema Course Course Narrative: 51-year-old male presenting with known low hemoglobin. Hemoglobin was 7 yesterday. However, he left due to an extended wait. He is back today. Patient has an extremely tender abdomen. Concern over potential malignancy. We will recheck labs and CT abdomen and pelvis with IV contrast. Patient will be admitted to the hospital. Vital Signs Temperature 98.8 F 05/14/17 19:12 Pulse Rate 104 05/14/17 19:12 Respiratory Rate 18 05/14/17 19:12 Blood Pressure 116/65 05/14/17 19:12 O2 Sat by Pulse Oximetry 98 05/14/17 19:12 Temperature 97.6 F 05/17/17 07:03 Pulse Rate 79 05/17/17 09:29 Respiratory Rate 18 05/17/17 09:29 Blood Pressure 107/62 05/17/17 09:29 O2 Sat by Pulse Oximetry 99 05/17/17 09:29 Oxygen Delivery Oxygen Delivery Room Air Medical Decision Making - Lab Data Result diagrams: 05/17/17 00:27 05/16/17 04:09 Lab Results 05/14/17 05/14/17 05/14/17 Range/Units 19:50 19:50 19:50 WBC 4.3 (4.3-11.1) K/mcL RBC 2.22 L (4.19-5.50) M/mcL Hgb 6.5 L (12.9-16.9) g/dL Hct 20.9 L (37.5-50.1) % MCV 94.1 (83.0-100.0) fL MCH 29.3 (28.0-33.3) pg MCHC 31.1 L (31.6-35.5) g/dL RDW 17.5 H (11.5-14.5) % Plt Count 69 L (140-400) K/mcL MPV 10.2 (9.4-12.4) fL Immature Gran % 0.2 (0-4) % Seg Neutrophils % 50.7 % Lymphocytes % 31.3 % Monocytes % 13.6 % Eosinophils % 4.0 % Basophils % 0.2 % Neutrophils # 2.2 (1.6-8.9) K/mcL Lymphocytes # 1.4 (0.6-4.6) K/mcL Monocytes # 0.6 (0.0-1.3) K/mcL Eosinophils # 0.2 (0.0-0.6) K/mcL Basophils # 0.0 (0.0-0.2) K/mcL Immature Plt Fraction 3.0 (1.1-6.1) % Sodium 136 (136-145) mEq/L Potassium 4.4 (3.5-4.5) mEq/L Chloride 105 (98-109) mEq/L Carbon Dioxide 21 (19-29) mEq/L BUN 33 H (8-26) mg/dL Creatinine 1.54 H (0.72-1.25) mg/dL Est GFR ( Amer) 58 L (> 60) Est GFR (Non-Af Amer) 47 L (> 60) BUN/Creatinine Ratio 21 (6-26) Glucose 189 H (70-99) mg/dL POC Glucose (58-89) Calculated Osmolality 294 (280-300) Calcium 10.7 (8.6-10.8) mg/dL Total Bilirubin 0.4 (0.2-1.2) mg/dL AST 20 (5-34) Units/L ALT 13 (0-55) Units/L Alkaline Phosphatase 301 H (38-126) Units/L Ammonia (18-72) mcmol/L Lactate Dehydrogenase 256 (159-327) Units/L Serum Total Protein 6.1 (6.0-8.3) g/dL Albumin 2.0 L (3.5-5.0) g/dL Globulin 4.1 H (2.4-3.5) g/dL Albumin/Globulin Ratio 0.5 L (1.1-2.2) Lipase 156 H (8-78) Units/L Blood Type Antibody Screen Crossmatch 05/14/17 05/14/17 05/15/17 Range/Units 20:25 22:30 06:22 WBC (4.3-11.1) K/mcL RBC (4.19-5.50) M/mcL Hgb (12.9-16.9) g/dL Hct (37.5-50.1) % MCV (83.0-100.0) fL MCH (28.0-33.3) pg MCHC (31.6-35.5) g/dL RDW (11.5-14.5) % Plt Count (140-400) K/mcL MPV (9.4-12.4) fL Immature Gran % (0-4) % Seg Neutrophils % % Lymphocytes % % Monocytes % % Eosinophils % % Basophils % % Neutrophils # (1.6-8.9) K/mcL Lymphocytes # (0.6-4.6) K/mcL Monocytes # (0.0-1.3) K/mcL Eosinophils # (0.0-0.6) K/mcL Basophils # (0.0-0.2) K/mcL Immature Plt Fraction (1.1-6.1) % Sodium (136-145) mEq/L Potassium (3.5-4.5) mEq/L Chloride (98-109) mEq/L Carbon Dioxide (19-29) mEq/L BUN (8-26) mg/dL Creatinine (0.72-1.25) mg/dL Est GFR ( Amer) (> 60) Est GFR (Non-Af Amer) (> 60) BUN/Creatinine Ratio (6-26) Glucose (70-99) mg/dL POC Glucose 145 H (58-89) Calculated Osmolality (280-300) Calcium (8.6-10.8) mg/dL Total Bilirubin (0.2-1.2) mg/dL AST (5-34) Units/L ALT (0-55) Units/L Alkaline Phosphatase (38-126) Units/L Ammonia 19 (18-72) mcmol/L Lactate Dehydrogenase (159-327) Units/L Serum Total Protein (6.0-8.3) g/dL Albumin (3.5-5.0) g/dL Globulin (2.4-3.5) g/dL Albumin/Globulin Ratio (1.1-2.2) Lipase (8-78) Units/L Blood Type A POSITIVE Antibody Screen NEGATIVE Crossmatch See Detail Attestation Statement - Attestation Attestation: I examined this patient and my medical decision-making was reviewed with the Resident Physician. I agree with the documented findings, disposition and treatment plan as described except to the extent set forth below. I spent greater than 35 minutes of critical care time resuscitating this acutely ill male suffering from acute lymphoma requiring blood transfusion for anemia and tachycardia. This is excluding billable procedures. Plan admit for further evaluation of anemia and acute lymphoma. Hospitalist is requesting second unit of PRBC. Will transfuse second unit at hospitalist request.
[2017-05-14 20:05] LABS: Hematocrit 20.9 % (37.5-50.1); Mean Platelet Volume 10.2 fL (9.4-12.4); Monocytes % 13.6 %
[2017-05-14 20:07] LABS: Basophils % 0.2 %; Eosinophils # 0.2 K/mcL (0.0-0.6); Immature Granulocytes % 0.2 % (0-4); Lymphocytes % 31.3 %; Mean Corpuscular HGB Conc 31.1 g/dL (31.6-35.5); Mean Corpuscular Hemoglobin 29.3 pg (28.0-33.3); Mean Corpuscular Volume 94.1 fL (83.0-100.0); Monocytes # 0.6 K/mcL (0.0-1.3); Neutrophils # 2.2 K/mcL (1.6-8.9); Red Blood Count 2.22 M/mcL (4.19-5.50); Red Cell Distribution Width 17.5 % (11.5-14.5); Segmented Neutrophils % 50.7 %
[2017-05-14 20:14] LABS: Albumin/Globulin Ratio 0.5 (1.1-2.2); Bilirubin,Total 0.4 mg/dL (0.2-1.2); Calcium 10.7 mg/dL (8.6-10.8); Globulin 4.1 g/dL (2.4-3.5); Potassium 4.4 mEq/L (3.5-4.5); Total Protein 6.1 g/dL (6.0-8.3)
[2017-05-14 20:27] LABS: Hemoglobin 6.5 g/dL (12.9-16.9); Lymphocytes # 1.4 K/mcL (0.6-4.6); Platelet Count 69 K/mcL (140-400)
[2017-05-14] MEDS ORDERED: 0.9 % Sodium Chloride 1,000 ML IVC ONE (20:38)
--- NOTE | 2017-05-15 00:40 | Internal Med History&Physical ---
<Martín Quesada - Last Filed: 05/15/17 01:25> Date of Encounter: 05/15/17 Time of Encounter: 00:40 Assessment and Plan (1) Symptomatic anemia Current visit: No Status: Acute HGB 6.5 Transfuse blood products. Continue to monitor (2) Lymphoproliferative disorder Current visit: Yes Status: Suspected CT abd/plv reveals retroperitoneal and pelvic adenopathy which is overall stable to minimally increased. Findings concerning for lymphoproliferative disorder such as lymphoma. Splenomegaly. Subcarinal adenopathy in the visualized chest is stable to slightly increased. 8 mm lingular nodule. Patient has positive B-symptoms Consider Hem/onc consult (3) Primary biliary cholangitis Current visit: No Status: Acute He has been under the care of a horticulturalist at [facility] for his PBC for the past several months who has been performing labs every month with last endoscopy performed roughly 2 months ago. Patient scheduled to see Dr. Ortega on 05/16/17 (4) Liver cirrhosis Current visit: No Status: Acute MELD score 13. 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 Continue SSI and blood glucose monitoring. Qualifiers: Diabetes mellitus oysterman insulin use: without oysterman use Qualified Code(s): E11.9 - Type 2 diabetes mellitus without complications (7) DVT prophylaxis Current visit: No Status: Acute SCDs. No Heparin due to Anemia Internal Medicine - H&P: HPI Chief complaint: Low hemoglobin Admitted From: Home Plans for Post Hospital Care: Home History of present illness: Mr. Marquis is a 51 year old male with a PMH of primary biliary cholangitis, cirrhosis, DM Type 2, and anemia with last blood transfusion 3 weeks ago during previous admission presented with a chief complaint of low hemoglobin, weakness , nausea, abdominal pain, 40 lbs weight loss in the past 6 months, night sweats , and poor appetite. Abdominal pain is diffuse and worse with eating. Patient denies fever, chills, CP, SOB, vomiting, melena, hematochezia, hematemesis, or recent illness. Of note, patient was sent to the ED yesterday from his PCP office but left due to extended wait time. His HGB was 7 yesterday and he has been under the care of a horticulturalist at [facility] for his PBC for the past several months who has been performing labs every month with last endoscopy performed roughly 2 months ago. Past Med Surg Social Fam HX - Past Medical History Medical history: cirrhosis, diabetes, other (PBC) Psychiatric history: no psych history - Past Surgical History Surgical History: orthopedic, other (knee) - Social History Smoking Status: Former smoker Smokeless Tobacco Status: No Alcohol use: none Drug use: none - Family History Mother Adopted: No Living Status: Still Living Hx Family Cardiac Disorders: Yes Hx Family Respiratory Disorders: No Hx Family Cancer: Yes (sister lymphoma) Hx Family GI Disorders: No Hx Family Endocrine Disorder: No Hx Family Neuromuscular Disorders: No Hx Family Neurologic Disorders: No Hx Family HEENT Disorders: No Hx Family Autoimmune Disorders: No Internal Medicine - H&P: Meds Atorvastatin Calcium [Lipitor] 20 mg PO HS 10/26/16 [History] Bupropion HCl [Wellbutrin Xl] 300 mg PO DAILY 10/26/16 [History] Ferrous Sulfate 325 mg PO BIDWM 10/26/16 [History] Lisinopril 2.5 mg PO DAILY 10/26/16 [History] Metformin HCl [Glucophage] 1,000 mg PO DAILY 10/26/16 [History] SitaGLIPtin [Januvia] 100 mg PO DAILY 10/26/16 [History] Ascorbic Acid [Vitamin C] 500 mg PO DAILY 04/24/17 [History] Cholecalciferol (D-3) [Vitamin D] 1,000 unit PO DAILY 04/24/17 [History] Cyanocobalamin (Vitamin B-12) [Vitamin B12] 1,000 mcg PO DAILY 04/24/17 [History ] Lactulose 20 gm PO DAILY 04/24/17 [History] Multivitamin [Multi-Day Vitamins] 1 each PO DAILY 04/24/17 [History] Ursodiol [Joshua Forte] 500 mg PO BID 04/24/17 [History] Omeprazole [PriLOSEC] 40 mg PO DAILY@0630 #30 04/25/17 [Rx] 3 Allergy/AdvReac Type Severity Reaction Status Date / Time No Known Allergies Allergy Verified 10/26/16 12:52 All Systems PM: A 10-system review of systems was performed and is negative for pertinent findings except as documented above in the HPI. - Constitutional Constitutional: anorexia, fatigue, malaise, weakness, weight loss, no chills, no fever(s) - EENT Eyes: no change in vision Nose, mouth and throat: no nasal congestion, no sinus pressure - Cardiovascular Cardiovascular ROS IM: no chest pain, no palpitations - Respiratory Respiratory: no cough, no hemoptysis, no chest congestion - Gastrointestinal Gastrointestinal: abdominal pain, nausea, no diarrhea, no melena, no vomiting - Genitourinary Genitourinary ROS male: no dysuria, no flank pain, no hematuria, no urinary frequency, no urinary urgency - Musculoskeletal Musculoskeletal ROS IM: no atrophy, no back pain, no muscle cramps, no numbness , no tingling - Integumentary Integumentary IM: no erythema, no rash, no jaundice - Neurological Neurological ROS: weakness, no confusion, no dizziness, no focal weakness, no headache(s), no numbness, no tingling - Psychiatric Psychiatric: no anxiety, no depression - Endocrine Endocrine IM: no polydipsia, no polyphagia, no polyuria - Hematologic/Lymphatic Hematologic/Lymphatic: easy bruising, no easy bleeding, no lymphadenopathy - Constitutional Vitals: Temp Pulse Resp BP Pulse Ox 98.8 F 96 18 104/60 98 05/14/17 19:12 05/15/17 00:13 05/15/17 00:13 05/15/17 00:13 05/15/17 00:13 General appearance: Present: cooperative, A&O X 3, pleasant, no acute distress, answers questions appropriately Exam: appears ill, pale - Head Head exam: Present: atraumatic, normal inspection, normocephalic - Eye Eye exam: Present: EOMI, PERRL, conjuntiva pink - ENT ENT exam: Present: mucous membranes dry, normal oropharynx - Neck Neck exam general surgery: Present: full ROM, normal inspection, supple. Absent : lymphadenopathy, tenderness - Respiratory Respiratory exam: Present: CTAB. Absent: rhonchi, wheezes - Cardiovascular Cardiovascular exam: Present: RRR, +S1, +S2 - GI/Abdominal GI/Abdominal exam: Present: hepatomegaly, normal bowel sounds, tenderness (RUQ) . Absent: distended, guarding - Extremities Exam Extremities exam: Present: full ROM, normal capillary refill, pedal edema (2+) - Back Exam Back exam: Present: normal inspection. Absent: tenderness - Neurological Exam Neurological exam: Present: alert, oriented X3, strengths equal and symetr throughout. Absent: altered, motor sensory deficit - Psychiatric Psychiatric exam: Present: normal affect, normal mood - Skin Skin exam: Present: dry, pallor, warm Internal Med - H&P Results - Labs CBC & Chem 7: 05/14/17 19:50 05/14/17 19:50 Labs: Short CBC 05/14/17 Range/Units 19:50 WBC 4.3 (4.3-11.1) K/mcL Hgb 6.5 L (12.9-16.9) g/dL Hct 20.9 L (37.5-50.1) % Plt Count 69 L (140-400) K/mcL Neutrophils # 2.2 (1.6-8.9) K/mcL BMP 05/14/17 19:50 Sodium 136 Potassium 4.4 Chloride 105 Carbon Dioxide 21 BUN 33 H Creatinine 1.54 H Glucose 189 H Calcium 10.7 Liver Function 05/14/17 Range/Units 19:50 Total Bilirubin 0.4 (0.2-1.2) mg/dL AST 20 (5-34) Units/L ALT 13 (0-55) Units/L Alkaline Phosphatase 301 H (38-126) Units/L Albumin 2.0 L (3.5-5.0) g/dL - Impressions ITS Impressions Abdomen/Pelvis CT 05/14/17 19:35 IMPRESSION: Retroperitoneal and pelvic adenopathy which is overall stable to minimally increased. Findings concerning for lymphoproliferative disorder such as lymphoma. Splenomegaly. No acute findings in the abdomen or pelvis. Subcarinal adenopathy in the visualized chest is stable to slightly increased. 8 mm lingular nodule. D/ / Anette Alvarez MD / Anette Alvarez MD Interpreting Provider: Anette Alvarez MD Chest X-Ray 05/14/17 19:35 IMPRESSION: 1. No acute cardiopulmonary disease. D/ / Aaron Kessler MD / Aaron Kessler MD Interpreting Provider: Aaron Kessler MD <Baldemar Kerr T - Last Filed: 05/15/17 01:55> Date of Encounter: 05/15/17 Internal Medicine - H&P: HPI History of present illness: Mr. Marquis is a 51 year old male All Systems PM: A 10-system review of systems was performed and is negative for pertinent findings except as documented above in the HPI. - Constitutional Vitals: Temp Pulse Resp BP Pulse Ox 98.9 F 100 16 114/64 98 05/15/17 01:45 05/15/17 01:45 05/15/17 01:45 05/15/17 01:45 05/15/17 01:22 Internal Med - H&P Results - Labs CBC & Chem 7: 05/14/17 19:50 05/14/17 19:50 - Attending Attestation I have independently seen and examined this patient on 05/15/17 and reviewed plan of care with the patient and the resident physician 51 M with PMH of PBC and Liver cirrhosis, chronic anemia and thrombocytopenia, splenomegaly, DM, HTN He had presented to the ER yesterday with weakness and weight loss and left to go home due to long wait period He endorses weight loss that is unintentional, subjective fevers with night sweats, early satiety and nausea, abdominal tenderness He reports a normal EGD in 02/2017 and normal colonoscopy 3 years ago Physical exam: VSS, not hypotensive, hemodynamically stable, clinically pale, chest is CTAB, Heart sounds S1/S2, no m/g/r, abdomen is tender mildly in all quadrants, he has 1+ bilateral piting ankle edema Labs and Imaging reviewed ; Coumadin 6.5 thrombocytopenia with platelet count of 69,000 white blood cell 2.2 to. AKA with BUN/creatinine 23/1.54. Hyperglycemia. Hyperprothrombinemia. Abdomen and pelvis CAT scan reveals subcarinal adenopathy, splenomegaly and multiple pelvic and retroperitoneal nodes. A/P #1 symptomatic anemia #2 lymphoproliferative disorder #3 primary biliary cirrhosis #4 liver cirrhosis #5 chronic thrombocytopenia #6 splenomegaly I agree with transfusion of 2 units of RBCs, IV fluids were AKA I, Hemoccult consult for lymphoproliferative disorder. GI to see prn, patient states appointment on Rest of details as in resident physician's documentation
[2017-05-15] MEDS ORDERED: Naloxone 0.4 MG/ML INJ IVP PRN ×2 (00:42→01:26)
[2017-05-15] MEDS ORDERED: 0.9 % Sodium Chloride 1,000 ML ONE (01:20)
[2017-05-15] MEDS ORDERED: Ondansetron ODT 4 MG TAB.RAPDIS SL PRN (01:26)
[2017-05-15] MEDS ORDERED: *HR* Morphine 2 MG/ML SYRINGE IVP PRN (01:26)
[2017-05-15] MEDS ORDERED: D5% in Water 1,000 ML IVC PRN (01:29)
[2017-05-15] MEDS ORDERED: *HR* Dextrose 50 % in Water (Syg) 50 ML SYRINGE IVP PRN (01:29)
[2017-05-15] MEDS ORDERED: Dextrose Gel 15 GM PO PRN ×2 (01:29)
[2017-05-15] MEDS: Insulin DETEMIR 100 UNIT/ML X5UNITS SQ SCH ×2 (06:15→21:13)
[2017-05-15] MEDS: Insulin LISPRO 300 UNITS/3 ML VIAL SQ SCH ×6 (06:26→16:29)
[2017-05-15] MEDS: Famotidine 20 MG/2 ML VIAL IVP SCH ×2 (06:26→16:27)
[2017-05-15] MEDS: 0.9 % Sodium Chloride 1,000 ML IVC SCH ×2 (08:30→16:27)
[2017-05-15] MEDS ORDERED: [UNRECOGNIZED DRUG - OTHER] RC SCH (09:00)
[2017-05-15] MEDS ORDERED: Lactulose 200 GM/300 ML (for enema) RC SCH (09:00)
[2017-05-15] MEDS ORDERED: LACTULOSE 200 GM RC SCH (09:00)
[2017-05-15] MEDS: (Ursodiol [Urso Forte] 500 MG) PO SCH ×2 (09:10→21:14)
[2017-05-15] MEDS: Multivit/Ca/Min/Fe/FA 1 TAB TABLET PO SCH (09:39)
[2017-05-15] MEDS: Cyanocobalamin (B-12) 1,000 MCG TABLET PO SCH (09:39)
[2017-05-15] MEDS: BuPROPion XL (24 HR) 150 MG TABLET PO SCH (09:39)
[2017-05-15] MEDS ORDERED: Lactulose 200 GM, Sodium Chloride IRRigation 700 ML RC SCH (10:00)
[2017-05-15 10:03] LABS: Hematocrit 26.1 % (37.5-50.1); Mean Corpuscular HGB Conc 31.8 g/dL (31.6-35.5); Red Cell Distribution Width 18.2 % (11.5-14.5); Segmented Neutrophils % 51.6 %
[2017-05-15 10:05] LABS: Basophils % 0.6 %; Eosinophils # 0.2 K/mcL (0.0-0.6); Eosinophils % 3.9 %; Hemoglobin 8.3 g/dL (12.9-16.9); Immature Granulocytes % 0.6 % (0-4); Immature Platelets 2.1 % (1.1-6.1); Lymphocytes # 1.3 K/mcL (0.6-4.6); Lymphocytes % 28.4 %; Mean Corpuscular Hemoglobin 29.2 pg (28.0-33.3); Mean Corpuscular Volume 91.9 fL (83.0-100.0); Monocytes # 0.7 K/mcL (0.0-1.3); Monocytes % 14.9 %; Neutrophils # 2.4 K/mcL (1.6-8.9); Red Blood Count 2.84 M/mcL (4.19-5.50)
[2017-05-15 10:08] LABS: Platelet Count 62 K/mcL (140-400)
[2017-05-15 10:12] LABS: INR 1.1; Prothrombin Time 12.1 Seconds (9.4-12.1)
[2017-05-15 10:14] LABS: Activated Partial Thrombo Time 31.4 Seconds (26.0-36.0)
[2017-05-15 10:15] LABS: Alanine Aminotransferase 13 Units/L (0-55); Albumin/Globulin Ratio 0.5 (1.1-2.2); Alkaline Phosphatase 291 Units/L (38-126); Aspartate Amino Transferase 20 Units/L (5-34); BUN/Creatinine Ratio 23 (6-26); Bilirubin,Total 0.6 mg/dL (0.2-1.2); Blood Urea Nitrogen 28 mg/dL (8-26); Calcium 10.4 mg/dL (8.6-10.8); Carbon Dioxide 21 mEq/L (19-29); Chloride 107 mEq/L (98-109); Glucose 141 mg/dL (70-99); Magnesium 1.4 mg/dL (1.6-2.6); Osmolality,Calculated 292 (280-300); Phosphorous 3.5 mg/dL (2.3-4.7); Potassium 4.5 mEq/L (3.5-4.5); Sodium 137 mEq/L (136-145); Total Protein 5.9 g/dL (6.0-8.3); eGFR For African Americans > 60 (> 60); eGFR For Non-African Americans > 60 (> 60)
[2017-05-15 10:21] LABS: Albumin 1.9 g/dL (3.5-5.0)
[2017-05-15] MEDS: Lactulose Oral Soln 20 GM/30 ML UDC PO SCH (12:32)
--- NOTE | 2017-05-15 17:08 | Event Note ---
Date of Encounter: 05/15/17 Time of Encounter: 12:30 Patient received 2 units of packed red blood cells in the ER. He feels better now. Discuss patient's case with hematology/oncology. They will evaluate patient after reviewing his records both from here and from [facility]. Explained plan of care to the patient and family. Continue to monitor blood counts.
[2017-05-15] MEDS: Melatonin 3 MG TABLET PO SCH (20:36)
[2017-05-15] MEDS ORDERED: Insulin LISPRO 300 UNITS/3 ML VIAL SQ SCH (21:00)
[2017-05-16] MEDS: 0.9 % Sodium Chloride 1,000 ML IVC SCH (05:04)
[2017-05-16] MEDS: Famotidine 20 MG/2 ML VIAL IVP SCH (05:05)
[2017-05-16 05:28] LABS: Basophils % 0.5 %; Immature Granulocytes % 0.5 % (0-4); Lymphocytes % 29.7 %; Mean Platelet Volume 10.6 fL (9.4-12.4)
[2017-05-16 05:30] LABS: Eosinophils # 0.1 K/mcL (0.0-0.6); Eosinophils % 3.3 %; Hematocrit 24.2 % (37.5-50.1); Hemoglobin 7.7 g/dL (12.9-16.9); Immature Platelets 3.3 % (1.1-6.1); Lymphocytes # 1.3 K/mcL (0.6-4.6); Mean Corpuscular HGB Conc 31.8 g/dL (31.6-35.5); Mean Corpuscular Hemoglobin 29.3 pg (28.0-33.3); Monocytes # 0.7 K/mcL (0.0-1.3); Monocytes % 17.1 %; Neutrophils # 2.1 K/mcL (1.6-8.9); Nucleated Red Blood Cells 0.5 /100 WBC (0); Red Blood Count 2.63 M/mcL (4.19-5.50); Red Cell Distribution Width 18.3 % (11.5-14.5); Segmented Neutrophils % 48.9 %
[2017-05-16 05:44] LABS: Platelet Count 56 K/mcL (140-400)
[2017-05-16 05:45] LABS: BUN/Creatinine Ratio 18 (6-26); Blood Urea Nitrogen 22 mg/dL (8-26); Calcium 9.7 mg/dL (8.6-10.8); Carbon Dioxide 21 mEq/L (19-29); Chloride 108 mEq/L (98-109); Glucose 136 mg/dL (70-99); Osmolality,Calculated 289 (280-300); Sodium 137 mEq/L (136-145); eGFR For African Americans > 60 (> 60); eGFR For Non-African Americans > 60 (> 60)
[2017-05-16 06:24] LABS: Anisocytosis 2+ (Not Present); Platelet Estimate Decreased (Normal)
[2017-05-16] MEDS: Cyanocobalamin (B-12) 1,000 MCG TABLET PO SCH (08:18)
[2017-05-16] MEDS: Lactulose Oral Soln 20 GM/30 ML UDC PO SCH (08:18)
[2017-05-16] MEDS: Insulin LISPRO 300 UNITS/3 ML VIAL SQ SCH ×6 (08:18→18:13)
[2017-05-16] MEDS: BuPROPion XL (24 HR) 150 MG TABLET PO SCH (08:18)
[2017-05-16] MEDS: Multivit/Ca/Min/Fe/FA 1 TAB TABLET PO SCH (08:19)
[2017-05-16] MEDS: (Ursodiol [Urso Forte] 500 MG) PO SCH (08:20)
--- NOTE | 2017-05-16 12:45 | Oncology Inp Consult Note ---
Date of Encounter: 05/16/17 Time of Encounter: 12:42 Assessment and Plan (1) Hepatosplenomegaly Status: Acute Assessment and plan: Has significant hepatosplenomegaly. Liver comes almost to the right pelvis. Spleen size 16 cm. By CAT scan no cirrhosis. But evidence of portal hypertension Also retroperitoneal lymph nodes largest 2.5 cm Underlying lymphoproliferative disorder. Will proceed with bone marrow biopsy He missed his appointment Dr. Ortega as an outpatient today. Will get GI involved. If necessary would consider liver biopsy (2) Symptomatic anemia Status: Acute Assessment and plan: Progressive anemia requiring blood transfusion twice within the last month. Also progressive thrombocytopenia platelet count 50,000. Retroperitoneal adenopathy. Differential include underlying lymphoproliferative disorder versus cirrhosis of liver with portal hypertension as mentioned We will proceed with bone marrow aspiration biopsy as an inpatient through interventional radiology We will arrange for PET scan as an outpatient. Treatment recommendation after that Hepatitis C and B negative on 01/26/2017 Anemia workup negative with normal iron levels B12 folate TSH - Data of Consult Patient: new to practice Requesting Physician: Enid Evans MD Primary Care Provider: Debora Sutton CNP - Consult Narrative Reason for consult: Anemia and thrombocytopenia History of present illness: Mr. Marquis is a 51 year old male recurrent hospitalization with anemia hemoglobin around 6.5. Received blood transfusions 2 units 04/25/2017 and another 2 units 05/14/2017. Also his thrombocytopenia is getting worse. Platelet counts 111 at [facility] 02/22/[address] currently 56,000. CT abdomen and pelvis with contrast 05/14/2017 showed retroperitoneal adenopathy stable compared to 02/15/2017. Right side external iliac 2.3 cm left pelvic wall 2.1 cm. Per left retroperitoneal lymph node 2.4 cm He was evaluated at [facility] and I reviewed what is [facility] records. Office notes from Dr. Caro dated 02/22/2017. Elevated alkaline phosphatase of 407 02/22/2017. Ulcer significant weight loss since August 2016. CT scan on 02/15/2017 showed hepatosplenomegaly and portal hypertension with varices No liver biopsy done. Primary biliary cirrhosis was in the differential Both AY[facility]NA antimitochondrial antibody negative on January 2017 Past Med Surg Social Fam HX - Past Medical History Medical history: cirrhosis, diabetes, hyperlipidemia, hypertension, other Psychiatric history: no psych history - Past Surgical History Surgical History: orthopedic, other - Social History Smoking Status: Former smoker Smokeless Tobacco Status: No Alcohol use: none Drug use: none - Family History Mother Adopted: No Living Status: Still Living Hx Family Cardiac Disorders: Yes Hx Family Respiratory Disorders: No Hx Family Cancer: Yes (sister lymphoma) Hx Family GI Disorders: No Hx Family Endocrine Disorder: No Hx Family Neuromuscular Disorders: No Hx Family Neurologic Disorders: No Hx Family HEENT Disorders: No Hx Family Autoimmune Disorders: No Medications and Allergies Atorvastatin Calcium [Lipitor] 20 mg PO HS 10/26/16 [History] Bupropion HCl [Wellbutrin Xl] 300 mg PO DAILY 10/26/16 [History] Ferrous Sulfate 325 mg PO BIDWM 10/26/16 [History] Lisinopril 2.5 mg PO DAILY 10/26/16 [History] Metformin HCl [Glucophage] 1,000 mg PO DAILY 10/26/16 [History] SitaGLIPtin [Januvia] 100 mg PO DAILY 10/26/16 [History] Ascorbic Acid [Vitamin C] 500 mg PO DAILY 04/24/17 [History] Cholecalciferol (D-3) [Vitamin D] 1,000 unit PO DAILY 04/24/17 [History] Cyanocobalamin (Vitamin B-12) [Vitamin B12] 1,000 mcg PO DAILY 04/24/17 [History ] Lactulose 20 gm PO DAILY 04/24/17 [History] Multivitamin [Multi-Day Vitamins] 1 each PO DAILY 04/24/17 [History] Ursodiol [Joshua Forte] 500 mg PO BID 04/24/17 [History] Omeprazole [PriLOSEC] 40 mg PO DAILY@0630 #30 04/25/17 [Rx] 3 Allergy/AdvReac Type Severity Reaction Status Date / Time No Known Allergies Allergy Verified 10/26/16 12:52 Review of systems: Recurrent anemia requiring blood transfusion. Significant weight loss. No chest pain and no shortness of breath. Lower extremity edema 1+ Oncology - Exam - Constitutional Vitals: Temp Pulse Resp BP Pulse Ox 98.5 F 86 16 113/64 99 05/16/17 11:13 05/16/17 11:13 05/16/17 11:13 05/16/17 11:13 05/16/17 11:13 Exam: GENERAL: Alert and oriented, well appearing. Mental Status: Affect appropriate for circumstances HEENT: Sclerae anicteric. No mucositis or thrush. No other oral or pharyngeal lesions or erythema. Skin: No rashes or petechiae. No evidence of skin malignancy Lymph nodes: No cervical, supraclavicular, axillary, or inguinal adenopathy. Lungs: Air entry normal with normal breath sounds. No rhonchi or wheezing Cardiovascular: Regular rate and rhythm. No skipped beats Abdomen: Soft, nontender; hepatomegaly. Spleen not palpable. No ascites Extremities: 1+ edema. No calf swelling or tenderness. No joint deformity. Neurologic: Alert, cranial nerves II-XII intact; normal gait; no focal weakness or sensory abnormalities Oncology - Results Labs: Short CBC 05/16/17 Range/Units 04:09 WBC 4.2 L (4.3-11.1) K/mcL Hgb 7.7 L (12.9-16.9) g/dL Hct 24.2 L (37.5-50.1) % Plt Count 56 L (140-400) K/mcL Neutrophils # 2.1 (1.6-8.9) K/mcL BMP 05/16/17 04:09 Sodium 137 Potassium 4.0 Chloride 108 Carbon Dioxide 21 BUN 22 Creatinine 1.20 Glucose 136 H Calcium 9.7 Consult Discharge Plan - Plan Referrals: Debora Sutton CNP [Primary Care Provider] -
[2017-05-16 12:56] LABS: Hematocrit 24.9 % (37.5-50.1)
[2017-05-16] MEDS: Magnesium Oxide 400 MG TABLET PO SCH ×2 (14:37→20:12)
--- NOTE | 2017-05-16 16:50 | Internal Med Progress Note ---
Date of Encounter: 05/16/17 Time of Encounter: 09:20 - Assessment and plan (1) Lymphoproliferative disorder Current Visit: Yes Status: Suspected Assessment and plan: Patient with retroperitoneal lymphadenopathy. Associated with low platelets and anemia. Discussed with oncology. Recommend bone marrow biopsy. Will keep nothing by mouth overnight and plan for bone marrow biopsy tomorrow. (2) Symptomatic anemia Current Visit: Yes Status: Acute Assessment and plan: Hemoglobin improved posttransfusion. 7.7 this morning. We will continue to trend. Discussed with hematology. They will evaluate the patient later today. (3) Thrombocytopenia Current Visit: Yes Status: Acute Assessment and plan: Platelets 56 today. No active bleeding reported. (4) Diabetes mellitus type 2, uncomplicated Current Visit: Yes Status: Chronic Assessment and plan: Blood sugars are currently elevated. We will increase insulin coverage. Continue to monitor blood sugars Qualifiers: Diabetes mellitus enamel burner insulin use: without care home use Qualified Code(s): E11.9 - Type 2 diabetes mellitus without complications (5) Primary biliary cholangitis Current Visit: Yes Status: Acute Assessment and plan: Consulted GI for further recommendations. Placed on Ursodiol (6) DVT prophylaxis Current Visit: No Status: Acute Assessment and plan: On SCDs - Subjective Interval history: Patient is doing better today. Denies any dizziness or lightheadedness at this time. Still has some abdominal discomfort. No nausea or vomiting. - Constitutional Vitals: Temp Pulse Resp BP Pulse Ox 98.7 F 92 15 113/63 99 05/16/17 15:24 05/16/17 15:24 05/16/17 15:24 05/16/17 15:24 05/16/17 15:24 General appearance: Present: cooperative, A&O X 3, pleasant, no acute distress, answers questions appropriately - Neck Neck exam general surgery: Present: supple, trachea midline. Absent: lymphadenopathy - Respiratory Respiratory exam: Present: CTAB. Absent: accessory muscle use, rales, rhonchi, wheezes - Cardiovascular Cardiovascular exam: Present: RRR, +S1, +S2. Absent: diastolic murmur, gallop, rubs, systolic murmur - GI/Abdominal GI/Abdominal exam: Present: normal bowel sounds, soft, tenderness (Generalized) , no peritoneal signs. Absent: distended - Extremities Exam Extremities exam: Present: warm, radial pulses palpable and symmetrical. Absent : calf tenderness, cyanotic, pedal edema - Skin Skin exam: Present: dry, intact, pallor Internal Medicine: Result - Labs CBC & Chem 7: 05/16/17 12:19 05/16/17 04:09 Labs: Short CBC 05/16/17 05/16/17 Range/Units 04:09 12:19 WBC 4.2 L (4.3-11.1) K/mcL Hgb 7.7 L 8.0 L (12.9-16.9) g/dL Hct 24.2 L 24.9 L (37.5-50.1) % Plt Count 56 L (140-400) K/mcL Neutrophils # 2.1 (1.6-8.9) K/mcL BMP 05/16/17 04:09 Sodium 137 Potassium 4.0 Chloride 108 Carbon Dioxide 21 BUN 22 Creatinine 1.20 Glucose 136 H Calcium 9.7 - ABG Interpretation ABG results: PT/INR, D-dimer PT 12.1 Seconds (9.4-12.1) 05/15/17 09:51 Consult Discharge Plan - Plan Referrals: Debora Sutton, ESL INSTRUCTIONAL ASSISTANT [Primary Care Provider] -
[2017-05-16 17:35] LABS: Hematocrit 23.6 % (37.5-50.1); Hemoglobin 7.4 g/dL (12.9-16.9)
[2017-05-16] MEDS: Famotidine 20 MG TABLET PO SCH (20:13)
[2017-05-16] MEDS: Melatonin 3 MG TABLET PO SCH (20:13)
[2017-05-16] MEDS: Insulin DETEMIR 100 UNIT/ML X5UNITS SQ SCH (20:41)
[2017-05-16] MEDS ORDERED: Insulin LISPRO 300 UNITS/3 ML VIAL SQ SCH (21:00)
[2017-05-17] MEDS ORDERED: Ibuprofen 400 MG TABLET PO ONE (00:04)
[2017-05-17 00:36] LABS: Basophils % 0.5 %; Eosinophils # 0.1 K/mcL (0.0-0.6); Eosinophils % 3.1 %; Hematocrit 23.7 % (37.5-50.1); Hemoglobin 7.7 g/dL (12.9-16.9); Immature Granulocytes % 0.5 % (0-4); Immature Platelets 1.8 % (1.1-6.1); Lymphocytes # 1.3 K/mcL (0.6-4.6); Mean Corpuscular HGB Conc 32.5 g/dL (31.6-35.5); Mean Corpuscular Volume 92.2 fL (83.0-100.0); Mean Platelet Volume 10.5 fL (9.4-12.4); Monocytes # 0.7 K/mcL (0.0-1.3); Monocytes % 16.2 %; Neutrophils # 2.1 K/mcL (1.6-8.9); Red Blood Count 2.57 M/mcL (4.19-5.50); Red Cell Distribution Width 17.8 % (11.5-14.5); Segmented Neutrophils % 49.7 %
[2017-05-17 00:37] LABS: Platelet Count 59 K/mcL (140-400)
[2017-05-17] MEDS: Magnesium Oxide 400 MG TABLET PO SCH (07:58)
[2017-05-17] MEDS: BuPROPion XL (24 HR) 150 MG TABLET PO SCH (07:58)
[2017-05-17] MEDS: Multivit/Ca/Min/Fe/FA 1 TAB TABLET PO SCH (07:58)
[2017-05-17] MEDS: Famotidine 20 MG TABLET PO SCH (07:58)
[2017-05-17] MEDS: Cyanocobalamin (B-12) 1,000 MCG TABLET PO SCH (07:58)
[2017-05-17] MEDS: Lactulose Oral Soln 20 GM/30 ML UDC PO SCH (08:01)
[2017-05-17] MEDS: Insulin LISPRO 300 UNITS/3 ML VIAL SQ SCH ×2 (08:03→08:08)
[2017-05-17] MEDS ORDERED: *HR* Midazolam HCl 2 MG/2 ML VIAL IVP PRN (09:02)
[2017-05-17] MEDS ORDERED: *HR* FentaNYL (PF) 100 MCG/2 ML VIAL IVP PRN (09:03)
[2017-05-17] MEDS ORDERED: 0.9 % Sodium Chloride 500 ML ONE (09:20)
[2017-05-17 09:29] VITALS: BP 107/62
--- NOTE | 2017-05-17 09:34 | Pre-Sedation Evaluation ---
Pre-sedation evaluation - Pre-sedation checklist Date of procedure: 05/17/17 Procedure: bone marrow biopsy Recent Vitals: Last Vital Signs Temp 97.6 F 05/17/17 07:03 Pulse 79 05/17/17 09:29 Resp 18 05/17/17 09:29 BP 107/62 05/17/17 09:29 Pulse Ox 99 05/17/17 09:29 H&P (including ROS) documented in medical record: Yes Previous reaction to sedatives/anesthetics: Unknown Dietary Status: NPO after Midnight Dentition: full dentition ASA Classification *see protocol: CLASS III-Severe systemic disease Plan of Care: Pt appropriate candidate for procedure/moderate/conscious sedation , Risks/benefits of procedure/sedation discussed w/ patient/family
--- NOTE | 2017-05-17 09:35 | IR Procedure Note ---
Date of procedure: 05/17/17 Consent Obtained: Written consent Timeout: Correct patient and procedure verified, Time out performed, Skin prep completed Local anesthetic: Lidocaine 1% Indications: Thrombocytopenia Procedure Performed: Bone marrow asp/bx Complications: None; Tolerated procedure well (Monitor on floor)
--- NOTE | 2017-05-17 10:31 | Discharge Summary ---
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 Qualified Code(s): E11.9 - Type 2 diabetes mellitus without complications (5) Primary biliary cholangitis Priority: Secondary Status: Suspected (6) DVT prophylaxis Priority: Secondary Status: Acute - Discharge Medications Prescriptions: Ondansetron ODT [Zofran ODT] 4 mg SL Q6HR PRN #30 tab.rapdis PRN Reason: Nausea Home Medications: Atorvastatin Calcium [Lipitor] 20 mg PO HS 10/26/16 [History] Bupropion HCl [Wellbutrin Xl] 300 mg PO DAILY 10/26/16 [History] Ferrous Sulfate 325 mg PO BIDWM 10/26/16 [History] Lisinopril 2.5 mg PO DAILY 10/26/16 [History] Metformin HCl [Glucophage] 1,000 mg PO DAILY 10/26/16 [History] SitaGLIPtin [Januvia] 100 mg PO DAILY 10/26/16 [History] Ascorbic Acid [Vitamin C] 500 mg PO DAILY 04/24/17 [History] Cholecalciferol (D-3) [Vitamin D] 1,000 unit PO DAILY 04/24/17 [History] Cyanocobalamin (Vitamin B-12) [Vitamin B12] 1,000 mcg PO DAILY 04/24/17 [History ] Lactulose 20 gm PO DAILY 04/24/17 [History] Multivitamin [Multi-Day Vitamins] 1 each PO DAILY 04/24/17 [History] Ursodiol [Joshua Forte] 500 mg PO BID 04/24/17 [History] Omeprazole [PriLOSEC] 40 mg PO DAILY@0630 #30 04/25/17 [Rx] Ondansetron ODT [Zofran ODT] 4 mg SL Q6HR PRN #30 tab.rapdis 05/17/17 [Rx] Allergies/Adverse Reactions: 3 Allergy/AdvReac Type Severity Reaction Status Date / Time No Known Allergies Allergy Verified 10/26/16 12:52 Procedures/tests Complete & Pending: Procedures Performed prior 72 hours Category Date Time Status CT biopsy bone marrow [CT] Routine Exams 05/17/17 Taken Date of admission: 05/15/17 06:30 Primary care physician: Debora Sutton CNP Consults: 05/16/17 16:14 Consult to Gastroenterology [CONS] Routine Consulting Provider: [facility] [place] Reason for Consult: Anemia, PBC Time Notified: 15:00 Call Completed: Yes 05/16/17 16:16 Consult to Interventional Radiology [CONS] Routine Consulting Provider: Radiology [facility] Reason for Consult: Bone marrow biopsy Call Completed: No Discharging clinician: Enid Evans Anticipated date of discharge: 05/17/17 - Patient Status Disposition: Home, Self-Care Condition: Good Functional capacity at discharge: independent ambulation Overall status at discharge: patient is progressing back to baseline - Ambulatory Orders Ambulatory Orders: PET CT fusion whole body [PE] Time Frame: 1 Week, Facility: [facility], Location: [facility] - Discharge Instructions Instructions: Anemia (GEN) Follow Up With: Jaylen Hoffman MD [Partnered Physician] - 06/04/17 2:20 pm (in 1 week [facility] will call to schedule.) Debora Sutton CNP [Primary Care Provider] - 05/20/17 1:45 pm (in 1-2 weeks) Jaxson Ortega MD [Partnered Physician] - (in 1-2 weeks Office will call you with the date and time of appt. Thank you) - Diet and Activity Activity: increase activity as tolerated Diet: advance to your usual diet, diabetic diet Hospital course: Mr. Marquis is a 51 year old male patient with history of diabetes mellitus type 2 who was being worked up at [facility] for possible primary biliary cirrhosis presented to the ER here with symptoms of generalized weakness, nausea abdominal pain and recent weight loss along with night sweats. He was found to have a low hemoglobin level of 6.5. He received 2 units of packed red blood cell transfusion and since then his blood counts have been stable. He underwent CT scan of the abdomen and pelvis during initial workup and was found to have some retroperitoneal lymphadenopathy. He does have pancytopenia with low WBC and platelet counts too. Hematology was consulted and they recommended bone marrow biopsy due to concern for lymphoproliferative disorder. This was performed today. Patient is doing well postprocedure and he is stable for discharge. He will follow up with hematology as early as possible for results of bone marrow biopsy for further recommendations. He will also follow-up with gastroenterology here for further evaluation for possible primary biliary cirrhosis. - Time Spent with Patient Total time spent providing and/or coordinating discharge services: Greater than 30 minutes (32 min) - Constitutional Vitals: Temp Pulse Resp BP Pulse Ox 97.6 F 79 18 107/62 99 05/17/17 07:03 05/17/17 09:29 05/17/17 09:29 05/17/17 09:29 05/17/17 09:29 General appearance: Present: cooperative, A&O X 3, pleasant, no acute distress, answers questions appropriately - Neck Neck exam general surgery: Present: supple, trachea midline. Absent: lymphadenopathy - Respiratory Respiratory exam: Present: CTAB. Absent: accessory muscle use, rales, rhonchi, wheezes - Cardiovascular Cardiovascular exam: Present: RRR, +S1, +S2. Absent: diastolic murmur, gallop, rubs, systolic murmur - GI/Abdominal GI/Abdominal exam: Present: normal bowel sounds, soft, no peritoneal signs. Absent: distended, tenderness - Extremities Exam Extremities exam: Present: warm, radial pulses palpable and symmetrical. Absent : calf tenderness, cyanotic, pedal edema - Neurological Exam Neurological exam: Present: CN II-XII intact, oriented X3, no focal deficits. Absent: facial droop, speech deficit - Skin Skin exam: Present: dry, intact
--- NOTE | 2017-05-17 11:48 | Gastroenterology Consult Note ---
<Mynor Chambers Michele - Last Filed: 05/17/17 11:46> Date of Encounter: 05/17/17 Time of Encounter: 10:45 - Assessment and plan (1) Liver cirrhosis Status: Acute Assessment and plan: MELD Na 12 and Child-Ferro class B on admission. Titrate lactulose to have 2-4 bowel movements per day. Pt currently being followed with [facility], but states he wants to transfer his care to [place]. Follow up with Dr. Carvajal or Dr. Ortega in 2-3 weeks. 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 (3) Primary biliary cholangitis Status: Suspected Assessment and plan: Pt being treated by [facility] and wants to transfer his care to [place]. (4) Lymphoproliferative disorder Status: Suspected Assessment and plan: BMBx completed and pt will be following with Heme/Onc. - Time Spent With Patient Total time spent is greater than 50% in coordination of care (as documented) at patient's floor/unit and/or counseling patient: GI History of Present Illness - Data of Consult Patient: new to practice Consult date: 05/17/17 Requesting Physician: Enid Evans MD - Consult Narrative Reason for consult: Anemia, PBC History of present illness: Mr. Marquis is a 51 year old male with PMHx of primary biliary cholangitis, cirrhosis, DPM, and anemia with last blood transfusion 3 weeks ago during previous admission. He presented with a chief complaint of low hemoglobin, weakness, nausea, abdominal pain, 40 lbs weight loss in the past 6 months, night sweats, and poor appetite. Abdominal pain is diffuse and worse with eating. Patient denies fever, chills, CP, SOB, vomiting, melena, hematochezia, hematemesis, or recent illness. He has been under the care of a pilot can router at [facility] for his PBC for the past several months who has been performing labs every month with last endoscopy performed roughly 2 months ago. Hgb on admission 6.5 and received 2 units PRBC. This morning Hgb 7.7. Platelet count 59,000 this morning. Both AYANNA antimitochondrial antibody negative on January 2017. Hepatitis B and C negative on 01/26/2017. Anemia workup negative with normal iron levels, B12, folate, and TSH. Procedures: None NSAIDs: None Anticoagulation: None Past Med Surg Social Fam HX - Past Medical History Medical history: cirrhosis, diabetes, other Psychiatric history: no psych history - Past Surgical History Surgical History: orthopedic, other - Social History Smoking Status: Former smoker Smokeless Tobacco Status: No Alcohol use: none Drug use: none - Family History Mother Adopted: No Living Status: Still Living Hx Family Cardiac Disorders: Yes Hx Family Respiratory Disorders: No Hx Family Cancer: Yes (sister lymphoma) Hx Family GI Disorders: No Hx Family Endocrine Disorder: No Hx Family Neuromuscular Disorders: No Hx Family Neurologic Disorders: No Hx Family HEENT Disorders: No Hx Family Autoimmune Disorders: No - Gastrointestinal Gastrointestinal: Present: as per HPI - Constitutional Constitutional: as per HPI - EENT Eyes: as per HPI Ears: Present: as per HPI Nose, mouth and throat: Present: as per HPI - Cardiovascular Cardiovascular ROS: Present: as per HPI - Respiratory Respiratory IM: Present: as per HPI - Genitourinary Genitourinary: Absent: change in color, Urinary frequency - Neurological ROS Neurological GI: Present: as per HPI - Hematologic/Lymphatic Hematologic/Lymphatic pediatric: Present: as per HPI - Musculoskeletal Musculoskeletal ROS GI: Present: as per HPI - Integumentary Integumentary GI: Present: as per HPI - Psychiatric ROS Psychiatric GI: Present: as per HPI - Endocrine Endocrine IM: Present: as per HPI - Constitutional Vitals: Temp Pulse Resp BP Pulse Ox 97.6 F 79 18 107/62 99 05/17/17 07:03 05/17/17 09:29 05/17/17 09:29 05/17/17 09:29 05/17/17 09:29 General appearance: Present: cooperative, A&O X 3, no acute distress, answers questions appropriately - Head Head exam: Present: atraumatic, normocephalic - Eye Eye exam: Present: normal appearance, sclera anicteric - ENT ENT exam: Present: mucous membranes dry - Neck Neck exam general surgery: Present: normal inspection, trachea midline - Respiratory Respiratory exam: Present: CTAB. Absent: rales, rhonchi - Cardiovascular Cardiovascular exam: Present: RRR, +S1, +S2 - GI/Abdominal GI/Abdominal exam: Present: soft, no peritoneal signs. Absent: distended, firm , guarding, tenderness - Rectal Rectal exam: Present: deferred - Extremities Exam Extremities exam: Present: warm - Neurological Exam Neurological exam: Present: no focal deficits - Psychiatric Psychiatric exam: Present: normal affect, normal mood - Skin Skin exam: Present: dry, intact, normal color, warm Results - Labs CBC & Chem 7: 05/17/17 00:27 05/16/17 04:09 Labs: Last Result ESR 55 mm/hr (0-10) H 05/15/17 09:51 Calcium 9.7 mg/dL (8.6-10.8) 05/16/17 04:09 Entire Visit Hgb 7.7 g/dL (12.9-16.9) L 05/17/17 00:27 Hct 23.7 % (37.5-50.1) L 05/17/17 00:27 PT 12.1 Seconds (9.4-12.1) 05/15/17 09:51 Total Bilirubin 0.6 mg/dL (0.2-1.2) 05/15/17 09:51 AST 20 Units/L (5-34) 05/15/17 09:51 ALT 13 Units/L (0-55) 05/15/17 09:51 Ammonia 19 mcmol/L (18-72) 05/14/17 20:25 Lipase 156 Units/L (8-78) H 05/14/17 19:50 - ABG ABG results: PT/INR, D-dimer PT 12.1 Seconds (9.4-12.1) 05/15/17 09:51 - Impressions Impressions Bone Marrow Biopsy w/ CT 05/17/17 00:00 IMPRESSION: 1. CT guided bone marrow aspiration and core needle bone biopsy as discussed above. D/ / Jose Juan Bautista MD / Jose Juan Bautista MD Interpreting Provider: Jose Juan Bautista MD Consult Discharge Plan - Plan Instructions: Anemia (GEN) Referrals: Jaylen Hoffman MD [Partnered Physician] - 06/04/17 2:20 pm (in 1 week [facility] will call to schedule.) Debora Sutton, RYNE [Primary Care Provider] - 05/20/17 1:45 pm (in 1-2 weeks) Jaxson Ortega MD [Partnered Physician] - (in 1-2 weeks Office will call you with the date and time of appt. Thank you) Prescriptions: Ondansetron ODT [Zofran ODT] 4 mg SL Q6HR PRN #30 tab.rapdis PRN Reason: Nausea <Jace Carvajal - Last Filed: 05/20/17 17:04> Date of Encounter: 05/17/17 - Time Spent With Patient Total time spent is greater than 50% in coordination of care (as documented) at patient's floor/unit and/or counseling patient: GI History of Present Illness - Data of Consult Requesting Physician: Enid Evans MD - Consult Narrative History of present illness: Mr. Marquis is a 51 year old male - Constitutional Vitals: Temp Pulse Resp BP Pulse Ox 97.6 F 79 18 107/62 99 05/17/17 07:03 05/17/17 09:29 05/17/17 09:29 05/17/17 09:29 05/17/17 09:29 Results - Labs CBC & Chem 7: 05/17/17 00:27 05/16/17 04:09 Labs: Last Result ESR 55 mm/hr (0-10) H 05/15/17 09:51 Calcium 9.7 mg/dL (8.6-10.8) 05/16/17 04:09 Entire Visit Hgb 7.7 g/dL (12.9-16.9) L 05/17/17 00:27 Hct 23.7 % (37.5-50.1) L 05/17/17 00:27 PT 12.1 Seconds (9.4-12.1) 05/15/17 09:51 Total Bilirubin 0.6 mg/dL (0.2-1.2) 05/15/17 09:51 AST 20 Units/L (5-34) 05/15/17 09:51 ALT 13 Units/L (0-55) 05/15/17 09:51 Ammonia 19 mcmol/L (18-72) 05/14/17 20:25 Lipase 156 Units/L (8-78) H 05/14/17 19:50 - ABG ABG results: PT/INR, D-dimer PT 12.1 Seconds (9.4-12.1) 05/15/17 09:51 - Attending Attestation Personally examined and interviewed Mr. Marquis this morning. Agree with above assessment with the following being added: Patient had an EGD and colonoscopy at one of the satellite [facility] centers in the last month (negative per patient: records requested). Agree with bone marrow biopsy ordered by oncology for now. Review the above records and then make recommendations. .
[2017-05-18 04:48] LABS: Alpha 2 Globulin (PEP) 0.76 g/dL (0.48-1.05); Beta Globulin (PEP) 0.69 g/dL (0.48-1.10)
[2017-05-18 11:50] LABS: IFE Reflexed NOT DONE
== END 2017-05-17 11:03 | disposition home or self-care (01) | DRG 809 ==
LOC: EMEROO 19:07 → 3ANU 19:07 → SUATTDRO 05-15 06:30 → 3ANU 05-15 06:47
PROVIDERS: ADMIT Internal Medicine; ATTEND Internal Medicine

== ENCOUNTER 2017-05-30 19:06 | Inpatient (IN) ==
[2017-05-30 19:51] LABS: Eosinophils % 3.6 %; Immature Granulocytes % 0.4 % (0-4); Red Blood Count 2.37 M/mcL (4.19-5.50)
[2017-05-30 19:53] LABS: Basophils % 0.6 %; Eosinophils # 0.2 K/mcL (0.0-0.6); Hematocrit 22.6 % (37.5-50.1); Immature Platelets 2.9 % (1.1-6.1); Lymphocytes # 1.2 K/mcL (0.6-4.6); Lymphocytes % 25.6 %; Mean Corpuscular HGB Conc 31.9 g/dL (31.6-35.5); Mean Corpuscular Hemoglobin 30.4 pg (28.0-33.3); Mean Corpuscular Volume 95.4 fL (83.0-100.0); Mean Platelet Volume 10.1 fL (9.4-12.4); Monocytes # 0.8 K/mcL (0.0-1.3); Monocytes % 16.7 %; Neutrophils # 2.5 K/mcL (1.6-8.9); Red Cell Distribution Width 16.8 % (11.5-14.5); Segmented Neutrophils % 53.1 %
[2017-05-30 20:04] LABS: BUN/Creatinine Ratio 22 (6-26); Blood Urea Nitrogen 30 mg/dL (8-26); Calcium 10.5 mg/dL (8.6-10.8); Carbon Dioxide 22 mEq/L (19-29); Chloride 104 mEq/L (98-109); Glucose 237 mg/dL (70-99); Osmolality,Calculated 292 (280-300); Potassium 4.6 mEq/L (3.5-4.5); Sodium 134 mEq/L (136-145); eGFR For African Americans > 60 (> 60); eGFR For Non-African Americans 56 (> 60)
[2017-05-30 20:07] LABS: Hemoglobin 7.2 g/dL (12.9-16.9); Platelet Count 63 K/mcL (140-400)
[2017-05-30 20:22] LABS: INR 1.1; Prothrombin Time 12.2 Seconds (9.4-12.1)
[2017-05-30 20:24] LABS: Alanine Aminotransferase 10 Units/L (0-55); Albumin 1.9 g/dL (3.5-5.0); Albumin/Globulin Ratio 0.4 (1.1-2.2); Alkaline Phosphatase 386 Units/L (38-126); Aspartate Amino Transferase 19 Units/L (5-34); Bilirubin,Direct 0.2 mg/dL (0.0-0.5); Bilirubin,Indirect 0.2 mg/dL (0.0-1.2); Bilirubin,Total 0.4 mg/dL (0.2-1.2); Globulin 4.5 g/dL (2.4-3.5); Lipase 34 Units/L (8-78); Total Protein 6.4 g/dL (6.0-8.3)
[2017-05-30 20:25] LABS: Activated Partial Thrombo Time 34.3 Seconds (26.0-36.0)
[2017-05-30] MEDS ORDERED: *HR* LORazepam 2 MG/ML VIAL IVP ONE (20:56)
--- NOTE | 2017-05-30 21:36 | Emergency Department Note ---
START Narrative - START START: I examined this patient and my medical decision-making was reviewed with the Resident Physician. I agree with the documented findings, disposition and treatment plan as described except to the extent set forth below. 51 year old male with chronic anemia and low platelets and has been recently been working up for liver cirrhosis. Patient states that he is now getting symtmatic and has a hgb of 7.2. WE have consulted with hem/onc and they will see patinet as consult. and we will transfuse one unit and admit to medicine.
--- NOTE | 2017-05-30 21:37 | Emergency Department Note ---
Disposition Clinical Impression: Pancytopenia, Generalized weakness B-cell lymphoma Qualifiers: B-cell lymphoma type: unspecified B-cell Lymphoma site: unspecified region Qualified Code(s): C85.10 - Unspecified B-cell lymphoma, unspecified site Failure to thrive Qualifiers: Failure to thrive age range: in adult Qualified Code(s): R62.7 - Adult failure to thrive Disposition: Admitted As Inpatient Condition: Fair Time of Disposition: 21:59 General Adult HPI - General Chief complaint: ED Recheck/Abnormal Lab/Rx Stated complaint: "low platelets and hg" Time Seen by Provider: 05/30/17 19:43 Source: patient Limitations: no limitations Nursing Notes Reviewed: Yes Vital Signs Reviewed: Yes - History of Present Illness HPI Narrative: Patient is a 51-year-old male who presents to [facility] ED with a chief complaint of increased weakness, decreased appetite, concern for dehydration. Apparently, patient was having a PET scan done yesterday when he went into a panic attack. He could not complete PET scan. He then ended up going to [facility] where he had blood work done. They were told that his numbers were low again with his hemoglobin and platelets. Patient's states he never eats well when his numbers are low. With his continued weakness and decreased appetite, she brought him in for further evaluation. States he had a bone marrow biopsy done at the end of April and had a pending oncology follow-up visit. The states they were getting more and more confused as to what was going on diagnosis. Onset (ago): week(s) Pain Scale: 0 Associated symptoms: Denies: chest pain, cough, fever/chills, headaches, nausea/ vomiting Treatments Prior to Arrival: none - Related Data Home Medications Medication Instructions Recorded Confirmed Atorvastatin Calcium [Lipitor] 20 mg PO HS 10/26/16 05/14/17 Bupropion HCl [Wellbutrin Xl] 300 mg PO DAILY 10/26/16 05/14/17 Ferrous Sulfate 325 mg PO BIDWM 10/26/16 05/14/17 Metformin HCl [Glucophage] 1,000 mg PO DAILY 10/26/16 05/14/17 SitaGLIPtin [Januvia] 100 mg PO DAILY 10/26/16 05/14/17 Ascorbic Acid [Vitamin C] 500 mg PO DAILY 04/24/17 05/14/17 Cholecalciferol (D-3) [Vitamin D] 1,000 unit PO DAILY 04/24/17 05/14/17 Cyanocobalamin (Vitamin B-12) 1,000 mcg PO DAILY 04/24/17 05/14/17 [Vitamin B12] Multivitamin [Multi-Day Vitamins] 1 each PO DAILY 04/24/17 05/14/17 Ursodiol [Joshua Forte] 500 mg PO BID 04/24/17 05/14/17 Previous Rx's Medication Instructions Recorded Omeprazole [PriLOSEC] 40 mg PO DAILY@0630 #30 04/25/17 Ondansetron ODT [Zofran ODT] 4 mg SL Q6HR PRN #30 tab.rapdis 05/17/17 Allergies Allergy/AdvReac Type Severity Reaction Status Date / Time No Known Allergies Allergy Verified 10/26/16 12:52 All systems ED: reviewed and negative except as stated. Past Medical History - Past Medical History Attestation: Yes The following information was validated with the patient. Source: patient Medical history: Reports: cirrhosis, diabetes, other Surgical history: Reports: orthopedic, other Psychiatric history: Reports: no psych history - Social History Smoking Status: Former smoker Smokeless Tobacco Status: No Alcohol use: Reports: none Drug use: Reports: none Physical Exam - General Limitations: no limitations General appearance: alert, in no apparent distress - Head Head exam: atraumatic, normocephalic, normal inspection - Eye Eye exam: Present: normal appearance, EOMI - ENT ENT exam: normal exam, normal oropharynx, mucous membranes dry - Neck Neck exam: Present: normal inspection, full ROM, trachea midline - Chest Chest inspection: Present: normal inspection, symmetric chest wall rise - Respiratory Respiratory exam: Present: normal lung sounds bilaterally - Cardiovascular Cardiovascular exam: Present: normal rhythm, tachycardia, normal heart sounds - Abdominal Exam Abdominal exam: Present: soft, Non-Tender. Absent: tenderness, distention, guarding, rebound, rigidity - Extremities Exam Extremities exam: Present: normal inspection, full ROM. Absent: tenderness, pedal edema - Back Exam Back exam: Present: normal inspection, full ROM. Absent: tenderness - Neurological Exam Neurological exam: Present: alert - Psychiatric Psychiatric exam: Present: normal affect, normal mood - Skin Skin exam: Present: warm, dry, intact, normal color Course Course Narrative: Patient seen and examined. Generalized weakness and failure to thrive. Patient has pancytopenia though not remarkably different from how he has been over the last several weeks. According to pathology results from today, patient has B-cell lymphoma. I discussed with oncologist Dr. Hoffamn who recommends admission to the hospital. We will see him in consult tomorrow. I discussed with hospitalist Dr. Adair who would like the patient be transfused 1 unit. Patient has been accepted for admission. Vital Signs Temperature 98.8 F 05/30/17 19:22 Pulse Rate 116 05/30/17 19:22 Respiratory Rate 18 05/30/17 19:22 Blood Pressure 115/67 05/30/17 19:22 O2 Sat by Pulse Oximetry 97 05/30/17 19:22 Temperature 98.8 F 05/30/17 19:22 Pulse Rate 105 05/30/17 20:49 Respiratory Rate 18 05/30/17 20:49 Blood Pressure 109/81 05/30/17 20:49 O2 Sat by Pulse Oximetry 99 05/30/17 20:49 Oxygen Delivery Oxygen Delivery Room Air Medical Decision Making - Medical Records Medical records reviewed: Yes I reviewed the patient's medical records. - Lab Data Lab results reviewed: Yes I reviewed the patient's lab results. Result diagrams: 05/30/17 19:41 05/30/17 19:41 Lab Results 05/30/17 05/30/17 05/30/17 Range/Units 19:41 19:41 19:41 WBC 4.7 (4.3-11.1) K/mcL RBC 2.37 L (4.19-5.50) M/mcL Hgb 7.2 L (12.9-16.9) g/dL Hct 22.6 L (37.5-50.1) % MCV 95.4 (83.0-100.0) fL MCH 30.4 (28.0-33.3) pg MCHC 31.9 (31.6-35.5) g/dL RDW 16.8 H (11.5-14.5) % Plt Count 63 L (140-400) K/mcL MPV 10.1 (9.4-12.4) fL Immature Gran % 0.4 (0-4) % Seg Neutrophils % 53.1 % Lymphocytes % 25.6 % Monocytes % 16.7 % Eosinophils % 3.6 % Basophils % 0.6 % Neutrophils # 2.5 (1.6-8.9) K/mcL Lymphocytes # 1.2 (0.6-4.6) K/mcL Monocytes # 0.8 (0.0-1.3) K/mcL Eosinophils # 0.2 (0.0-0.6) K/mcL Basophils # 0.0 (0.0-0.2) K/mcL Immature Plt Fraction 2.9 (1.1-6.1) % PT (9.4-12.1) Seconds INR APTT (26.0-36.0) Seconds Sodium 134 L (136-145) mEq/L Potassium 4.6 H (3.5-4.5) mEq/L Chloride 104 (98-109) mEq/L Carbon Dioxide 22 (19-29) mEq/L BUN 30 H (8-26) mg/dL Creatinine 1.34 H (0.72-1.25) mg/dL Est GFR ( Amer) > 60 (> 60) Est GFR (Non-Af Amer) 56 L (> 60) BUN/Creatinine Ratio 22 (6-26) Glucose 237 H (70-99) mg/dL Calculated Osmolality 292 (280-300) Calcium 10.5 (8.6-10.8) mg/dL Total Bilirubin 0.4 (0.2-1.2) mg/dL Direct Bilirubin 0.2 (0.0-0.5) mg/dL Indirect Bilirubin 0.2 (0.0-1.2) mg/dL AST 19 (5-34) Units/L ALT 10 (0-55) Units/L Alkaline Phosphatase 386 H (38-126) Units/L Troponin I (0-0.03) ng/mL B-Natriuretic Peptide (0-100) pg/mL Serum Total Protein 6.4 (6.0-8.3) g/dL Albumin 1.9 L (3.5-5.0) g/dL Globulin 4.5 H (2.4-3.5) g/dL Albumin/Globulin Ratio 0.4 L (1.1-2.2) Lipase 34 (8-78) Units/L Blood Type A POSITIVE Antibody Screen NEGATIVE 05/30/17 05/30/17 05/30/17 Range/Units 19:41 19:41 19:41 WBC (4.3-11.1) K/mcL RBC (4.19-5.50) M/mcL Hgb (12.9-16.9) g/dL Hct (37.5-50.1) % MCV (83.0-100.0) fL MCH (28.0-33.3) pg MCHC (31.6-35.5) g/dL RDW (11.5-14.5) % Plt Count (140-400) K/mcL MPV (9.4-12.4) fL Immature Gran % (0-4) % Seg Neutrophils % % Lymphocytes % % Monocytes % % Eosinophils % % Basophils % % Neutrophils # (1.6-8.9) K/mcL Lymphocytes # (0.6-4.6) K/mcL Monocytes # (0.0-1.3) K/mcL Eosinophils # (0.0-0.6) K/mcL Basophils # (0.0-0.2) K/mcL Immature Plt Fraction (1.1-6.1) % PT 12.2 H (9.4-12.1) Seconds INR 1.1 APTT 34.3 (26.0-36.0) Seconds Sodium (136-145) mEq/L Potassium (3.5-4.5) mEq/L Chloride (98-109) mEq/L Carbon Dioxide (19-29) mEq/L BUN (8-26) mg/dL Creatinine (0.72-1.25) mg/dL Est GFR ( Amer) (> 60) Est GFR (Non-Af Amer) (> 60) BUN/Creatinine Ratio (6-26) Glucose (70-99) mg/dL Calculated Osmolality (280-300) Calcium (8.6-10.8) mg/dL Total Bilirubin (0.2-1.2) mg/dL Direct Bilirubin (0.0-0.5) mg/dL Indirect Bilirubin (0.0-1.2) mg/dL AST (5-34) Units/L ALT (0-55) Units/L Alkaline Phosphatase (38-126) Units/L Troponin I 0.02 (0-0.03) ng/mL B-Natriuretic Peptide 15 (0-100) pg/mL Serum Total Protein (6.0-8.3) g/dL Albumin (3.5-5.0) g/dL Globulin (2.4-3.5) g/dL Albumin/Globulin Ratio (1.1-2.2) Lipase (8-78) Units/L Blood Type Antibody Screen
[2017-05-30] MEDS ORDERED: 0.9 % Sodium Chloride 250 ML ONE (23:43)
[2017-05-31] MEDS ORDERED: Fosaprepitant Dimeglumine 150 MG in 0.9 % Sodium Chloride 250 ML IV SCH
[2017-05-31] MEDS ORDERED: DOXOrubicin HCL 200 MG/100 ML MLS IV SCH
[2017-05-31] MEDS ORDERED: Acetaminophen 325 MG TABLET PO ONE
[2017-05-31] MEDS ORDERED: Dexamethasone 10 MG/ML VIAL IV PRN
[2017-05-31] MEDS ORDERED: Dexamethasone 10 MG/ML VIAL IV ONE
[2017-05-31] MEDS ORDERED: SODIUM CHLORIDE 0.9% IV SCH ×3
[2017-05-31] MEDS ORDERED: *HR* LORazepam 2 MG/ML VIAL IV PRN ×2
[2017-05-31] MEDS ORDERED: VINCRISTINE IV SCH
[2017-05-31] MEDS ORDERED: *HR* Meperidine 25 MG/ML SYRINGE IV PRN
[2017-05-31] MEDS ORDERED: RITUXIMAB IV SCH
[2017-05-31] MEDS ORDERED: *HR* Promethazine 25 MG/ML VIAL IV PRN
[2017-05-31] MEDS ORDERED: Prochlorperazine 10 MG/2 ML VIAL IV PRN ×2
[2017-05-31] MEDS ORDERED: 0.9 % Sodium Chloride 500 ML IVC SCH
[2017-05-31] MEDS ORDERED: Famotidine 20 MG/2 ML VIAL IV PRN
[2017-05-31] MEDS ORDERED: CYCLOPHOSPHAMIDE IV SCH
[2017-05-31] MEDS ORDERED: *HR* OxyCODONE Immed Rel 5 MG TABLET PO PRN (00:35)
[2017-05-31] MEDS ORDERED: Ondansetron 4 MG/2 ML VIAL IVP PRN (00:35)
[2017-05-31] MEDS ORDERED: Naloxone 0.4 MG/ML INJ IVP PRN (00:35)
[2017-05-31] MEDS ORDERED: Dextrose Gel 15 GM PO PRN ×2 (00:35)
[2017-05-31] MEDS ORDERED: *HR* Dextrose 50 % in Water (Syg) 50 ML SYRINGE IVP PRN (00:35)
[2017-05-31] MEDS ORDERED: Acetaminophen 325 MG TABLET PO PRN (00:35)
[2017-05-31] MEDS ORDERED: D5% in Water 1,000 ML IVC PRN (00:35)
--- NOTE | 2017-05-31 00:46 | Internal Med History&Physical ---
Date of Encounter: 05/31/17 Time of Encounter: 00:05 Assessment and Plan (1) B-cell lymphoma Current visit: Yes Status: Acute 1. Consult Oncology to assist with care and treatment. 2. He has not yet followed up with oncology to discuss and initiate treatment. 3. Need to clarify whether patient truly has cirrhosis as this may complicate treatment. 4. Most recent CT report suggest normal liver per radiology. 5. Will try to obtain [facility] records. 6. Consult GI to assist with further work-up if necessary. Qualifiers: B-cell lymphoma type: unspecified B-cell Lymphoma site: unspecified region Qualified Code(s): C85.10 - Unspecified B-cell lymphoma, unspecified site (2) Symptomatic anemia Current visit: No Status: Acute 1. Will transfuse PRBC's and monitor H/H closely. 2. No report of any blood loss. 3. Monitor on telemetry. (3) Diabetes mellitus type 2, uncomplicated Current visit: No Status: Chronic 1. Stop oral meds. 2. Will use SSI and adjust as necessary. 3. Monitor glucose for concerns of hypoglycemia given weight loss, appetite loss. Qualifiers: Diabetes mellitus assisted insulin use: without assisted use Qualified Code(s): E11.9 - Type 2 diabetes mellitus without complications (4) DVT prophylaxis Current visit: No Status: Acute 1. EPCD's. Internal Medicine - H&P: HPI Chief complaint: short of breath, weakness, fatigue, new lymphoma diagnosis Admitted From: Emergency Dept Plans for Post Hospital Care: Home History of present illness: Mr. Marquis is a 51 year old male who presents with several day history of progressive weakness, fatigue, shortness of breath, and night sweats. He had a bone marrow biopsy done roughly 2 weeks ago and was just diagnosed with new diagnosis of B-cell lymphoma. He was due to follow up with oncology as an outpatient next week, but his symptoms progressed and worsened to the point where he cannot tolerate symptoms. [facility] and was admitted to the hospitalist service for further workup and care. Upon my assessment of the patient, he appears to be chronically ill, mildly short of breath, and very weak and fatigued. He is very pale. He denies any blood loss in the form of melena, hematochezia, hematemesis, hematuria, or any other form of blood loss. He is quite anemic and has pancytopenia as well. He denies any prior history of heart or lung problems. I suspect his dyspnea is due to his profound anemia. He has a blood transfusion ordered order from the ER, and we will continue with transfusion at the present time. He admits to having night sweats but no unexplained fever. He has had some weight loss which has been unintentional. Additionally, he had a CAT scan of his abdomen and pelvis performed this summer which suggested cirrhosis. He saw a junior net developer at [facility] who informed patient and his that he does actually have cirrhosis. However, repeat CT scan done 2 weeks ago suggests a normal liver. Therefore, the diagnosis of cirrhosis has not yet confirmed. He has never had a liver biopsy. He does not drink any alcohol. He has not had any liver problems until his lymphoma diagnosis. He denies any history of hepatitis or HIV. Has no family history of cirrhosis or hemochromatosis. Past Med Surg Social Fam HX - Past Medical History Attestation: Yes The following information was validated with the patient. Source: patient, old records reviewed Medical history: cirrhosis (not yet confirmed), diabetes, malignancy (B cell lymphoma -- new diagnosis) Psychiatric history: no psych history - Past Surgical History Surgical History: orthopedic, other (knee) - Social History Smoking Status: Former smoker Smokeless Tobacco Status: No Alcohol use: none Drug use: none Occupational status: employed Current living situation: Home, With Family Activity Level: Independent ambulation Recent Out of Country Travel Within the Last 8 Weeks: No - Family History Mother Adopted: No Living Status: Still Living Hx Family Cardiac Disorders: Yes Hx Family Respiratory Disorders: No Hx Family Cancer: Yes (sister lymphoma) Hx Family GI Disorders: No Hx Family Endocrine Disorder: No Hx Family Neuromuscular Disorders: No Hx Family Neurologic Disorders: No Hx Family HEENT Disorders: No Hx Family Autoimmune Disorders: No Father Living Status: Hx Family GI Disorders: No Hx Family Neurologic Disorders: Yes (stroke) Internal Medicine - H&P: Meds Atorvastatin Calcium [Lipitor] 20 mg PO HS 10/26/16 [History] Bupropion HCl [Wellbutrin Xl] 300 mg PO DAILY 10/26/16 [History] Ferrous Sulfate 325 mg PO BIDWM 10/26/16 [History] Metformin HCl [Glucophage] 1,000 mg PO DAILY 10/26/16 [History] SitaGLIPtin [Januvia] 100 mg PO DAILY 10/26/16 [History] Ascorbic Acid [Vitamin C] 500 mg PO DAILY 04/24/17 [History] Cholecalciferol (D-3) [Vitamin D] 1,000 unit PO DAILY 04/24/17 [History] Cyanocobalamin (Vitamin B-12) [Vitamin B12] 1,000 mcg PO DAILY 04/24/17 [History ] Multivitamin [Multi-Day Vitamins] 1 each PO DAILY 04/24/17 [History] Ursodiol [Joshua Forte] 500 mg PO BID 04/24/17 [History] Omeprazole [PriLOSEC] 40 mg PO DAILY@0630 #30 04/25/17 [Rx] Ondansetron ODT [Zofran ODT] 4 mg SL Q6HR PRN #30 tab.rapdis 05/17/17 [Rx] 3 Allergy/AdvReac Type Severity Reaction Status Date / Time No Known Allergies Allergy Verified 10/26/16 12:52 - Constitutional Constitutional: anorexia, fatigue, night sweats, weakness, weight loss, no chills, no fever(s) - EENT Eyes: no blurry vision, no change in vision Ears: no ear pain, no tinnitus Nose, mouth and throat: no nasal congestion, no nasal discharge, no sinus pressure, no sore throat - Cardiovascular Cardiovascular ROS IM: dyspnea, dyspnea on exertion, no chest pain, no edema, no orthopnea, no palpitations, no syncope - Respiratory Respiratory: dyspnea, no cough, no hemoptysis, no chest congestion, no excessive phlegm production, no change in phlegm color - Gastrointestinal Gastrointestinal: abdominal pain (RUQ -- mild), early satiety, no diarrhea, no hematemesis, no hematochezia, no melena, no nausea, no vomiting - Genitourinary Genitourinary ROS male: no dysuria, no flank pain, no hematuria - Musculoskeletal Musculoskeletal ROS IM: no arthralgias, no back pain - Integumentary Integumentary IM: unusual bruising, no rash, no jaundice - Neurological Neurological ROS: weakness, no confusion, no dizziness, no focal weakness, no frequent falls, no headache(s) - Psychiatric Psychiatric: no anxiety, no depression - Endocrine Endocrine IM: fatigue, no cold intolerance, no heat intolerance, no polydipsia, no polyuria - Hematologic/Lymphatic Hematologic/Lymphatic: easy bruising - Allergic/Immunologic Allergic/Immunologic: no GI upset with certain foods - Constitutional Vitals: Temp Pulse Resp BP Pulse Ox 98.3 F 108 16 115/61 98 05/31/17 00:13 05/31/17 00:13 05/31/17 00:13 05/31/17 00:13 05/31/17 00:13 General appearance: Present: cooperative, mild distress, A&O X 3, pleasant, loss of weight, answers questions appropriately Exam: pale and weak; mildly short of breath - Head Head exam: Present: atraumatic, normal inspection - Eye Eye exam: Present: EOMI, PERRL. Absent: scleral icterus Pupils: Present: normal accommodation - ENT ENT exam: Present: mucous membranes dry, normal exam - Neck Neck exam general surgery: Present: full ROM, supple. Absent: tenderness - Expanded Neck Exam Neck exam: Absent: carotid bruit - Respiratory Respiratory exam: Present: CTAB. Absent: accessory muscle use, chest wall tenderness, rales, respiratory distress, rhonchi, wheezes - Cardiovascular Cardiovascular exam: Present: RRR, +S1, +S2. Absent: diastolic murmur, systolic murmur - GI/Abdominal GI/Abdominal exam: Present: hepatomegaly, normal bowel sounds, tenderness (RUQ - - mild), no peritoneal signs. Absent: guarding, mass, rebound, splenomegaly - Extremities Exam Extremities exam: Present: full ROM, warm. Absent: calf tenderness, joint swelling, normal capillary refill (delayed -- ~ 3-4 seconds), pedal edema, tenderness - Back Exam Back exam: Absent: CVA tenderness (L), CVA tenderness (R) - Neurological Exam Neurological exam: Present: alert, CN II-XII intact, oriented X3, no focal deficits - Psychiatric Psychiatric exam: Present: normal affect, normal mood - Skin Skin exam: Present: dry, pallor, petechiae (few/rare), warm Internal Med - H&P Results - Labs CBC & Chem 7: 05/30/17 19:41 05/30/17 19:41 - Diagnostic Studies CT scan - abdomen Status: image reviewed by me Additional comments: Reports reviewed as well -- conflicting findings of cirrhosis from first to second CT
[2017-05-31 06:24] LABS: Eosinophils % 4.4 %; Hemoglobin 7.7 g/dL (12.9-16.9); Immature Granulocytes % 0.7 % (0-4)
[2017-05-31 06:25] LABS: INR 1.2; Prothrombin Time 12.8 Seconds (9.4-12.1)
[2017-05-31 06:26] LABS: Basophils % 0.5 %; Eosinophils # 0.2 K/mcL (0.0-0.6); Hematocrit 24.2 % (37.5-50.1); Immature Platelets 2.3 % (1.1-6.1); Lymphocytes # 1.3 K/mcL (0.6-4.6); Lymphocytes % 29.6 %; Mean Corpuscular HGB Conc 31.8 g/dL (31.6-35.5); Mean Corpuscular Hemoglobin 30.1 pg (28.0-33.3); Mean Corpuscular Volume 94.5 fL (83.0-100.0); Mean Platelet Volume 10.4 fL (9.4-12.4); Monocytes # 0.8 K/mcL (0.0-1.3); Monocytes % 19.3 %; Red Blood Count 2.56 M/mcL (4.19-5.50); Segmented Neutrophils % 45.5 %
[2017-05-31 06:27] LABS: Activated Partial Thrombo Time 32.7 Seconds (26.0-36.0)
[2017-05-31 06:33] LABS: Platelet Count 60 K/mcL (140-400)
[2017-05-31 06:38] LABS: Hemoglobin A1C 5.7 %
[2017-05-31 06:46] LABS: Alanine Aminotransferase 11 Units/L (0-55); Albumin 1.9 g/dL (3.5-5.0); Albumin/Globulin Ratio 0.4 (1.1-2.2); Alkaline Phosphatase 368 Units/L (38-126); Aspartate Amino Transferase 18 Units/L (5-34); BUN/Creatinine Ratio 23 (6-26); Bilirubin,Total 0.5 mg/dL (0.2-1.2); Blood Urea Nitrogen 27 mg/dL (8-26); Calcium 10.3 mg/dL (8.6-10.8); Carbon Dioxide 25 mEq/L (19-29); Chloride 106 mEq/L (98-109); Globulin 4.5 g/dL (2.4-3.5); Glucose 192 mg/dL (70-99); Magnesium 1.6 mg/dL (1.6-2.6); Osmolality,Calculated 290 (280-300); Potassium 4.2 mEq/L (3.5-4.5); Sodium 135 mEq/L (136-145); Total Protein 6.4 g/dL (6.0-8.3); eGFR For African Americans > 60 (> 60); eGFR For Non-African Americans > 60 (> 60)
[2017-05-31 06:55] LABS: Anisocytosis 1+ (Not Present); Microcytosis Present (Not Present); Platelet Estimate Decreased (Normal)
[2017-05-31 06:56] LABS: Polychromasia 1+ (Not Present)
[2017-05-31] MEDS: Multivit/Ca/Min/Fe/FA 1 TAB TABLET PO SCH (08:10)
[2017-05-31] MEDS: Ascorbic Acid 500 MG TABLET PO SCH (08:10)
[2017-05-31] MEDS: Insulin LISPRO 300 UNITS/3 ML VIAL SQ SCH ×3 (08:24→17:03)
[2017-05-31] MEDS ORDERED: Heparin 1,000 UNITS/500 mL NS 0 ML ONE (12:31)
[2017-05-31] MEDS ORDERED: ceFAZolin 2,000 MG in D5% in Water (Mini-Bag+) 100 ML IVPB ONE (12:55)
[2017-05-31] MEDS ORDERED: *HR* FentaNYL (PF) 100 MCG/2 ML VIAL IVP PRN (12:55)
[2017-05-31] MEDS ORDERED: *HR* Midazolam HCl 2 MG/2 ML VIAL IVP PRN (12:55)
[2017-05-31] MEDS ORDERED: 0.9 % Sodium Chloride 500 ML ONE (13:10)
[2017-05-31] MEDS ORDERED: *HR* Midazolam HCl 2 MG/2 ML VIAL ONE (13:19)
[2017-05-31] MEDS ORDERED: *HR* FentaNYL (PF) 100 MCG/2 ML VIAL ONE (13:20)
[2017-05-31] MEDS ORDERED: ceFAZolin 2,000 MG in D5% in Water 100 ML IVPB ONE (14:00)
--- NOTE | 2017-05-31 14:02 | Internal Med Progress Note ---
Date of Encounter: 05/31/17 Time of Encounter: 10:35 - Assessment and plan (1) Symptomatic anemia Current Visit: Yes Status: Acute Assessment and plan: Hemoglobin levels remain low despite transfusion. However, patient does feel better. We will continue to monitor blood counts. Follow hematology oncology recommendations. High risk for complications. (2) B-cell lymphoma Current Visit: Yes Status: Acute Assessment and plan: Based on FISH studies on bone marrow biopsy. Differential diagnosis includes grade 3 follicle lymphoma and diffuse large B-cell lymphoma. t (14:18) positive. Discussed with oncology. Place port catheter today. Qualifiers: B-cell lymphoma type: unspecified B-cell Lymphoma site: multiple regions Qualified Code(s): C85.18 - Unspecified B-cell lymphoma, lymph nodes of multiple sites (3) Diabetes mellitus type 2, uncomplicated Current Visit: Yes Status: Chronic Assessment and plan: Monitor blood sugars. Currently on low-dose correctional scale insulin. Will monitor and adjust insulin regimen accordingly. Qualifiers: Diabetes mellitus long-term insulin use: without long-term use Qualified Code(s): E11.9 - Type 2 diabetes mellitus without complications (4) DVT prophylaxis Current Visit: Yes Status: Acute Assessment and plan: With SCDs. No medical anticoagulation due to anemia and thrombocytopenia - Subjective Interval history: Patient is awake and alert. Still has some shortness of breath but feels better compared to yesterday. Fatigue is also improved. Denies any chest pain or abdominal pain at this time. - Constitutional Vitals: Temp Pulse Resp BP Pulse Ox 97.6 F 91 15 124/74 100 05/31/17 11:00 05/31/17 13:56 05/31/17 13:56 05/31/17 13:56 05/31/17 13:56 General appearance: Present: cooperative, mild distress, A&O X 3, pleasant, loss of weight, answers questions appropriately - Neck Neck exam general surgery: Present: supple, trachea midline. Absent: lymphadenopathy - Respiratory Respiratory exam: Present: CTAB. Absent: accessory muscle use, rales, rhonchi, wheezes - Cardiovascular Cardiovascular exam: Present: RRR, +S1, +S2. Absent: diastolic murmur, gallop, rubs, systolic murmur - GI/Abdominal GI/Abdominal exam: Present: normal bowel sounds, soft, no peritoneal signs. Absent: distended, tenderness - Extremities Exam Extremities exam: Present: warm, radial pulses palpable and symmetrical. Absent : calf tenderness, cyanotic, pedal edema - Neurological Exam Neurological exam: Present: alert, oriented X3, no focal deficits. Absent: facial droop, speech deficit - Skin Skin exam: Present: dry, intact Internal Medicine: Result - Labs CBC & Chem 7: 05/31/17 05:59 05/31/17 05:59 Labs: Short CBC 05/31/17 Range/Units 05:59 WBC 4.3 (4.3-11.1) K/mcL Hgb 7.7 L (12.9-16.9) g/dL Hct 24.2 L (37.5-50.1) % Plt Count 60 L (140-400) K/mcL Neutrophils # 2.0 (1.6-8.9) K/mcL BMP 05/31/17 05:59 Sodium 135 L Potassium 4.2 Chloride 106 Carbon Dioxide 25 BUN 27 H Creatinine 1.19 Glucose 192 H Calcium 10.3 Liver Function 05/31/17 Range/Units 05:59 Total Bilirubin 0.5 (0.2-1.2) mg/dL AST 18 (5-34) Units/L ALT 11 (0-55) Units/L Alkaline Phosphatase 368 H (38-126) Units/L Albumin 1.9 L (3.5-5.0) g/dL - ABG Interpretation ABG results: PT/INR, D-dimer PT 12.8 Seconds (9.4-12.1) H 05/31/17 05:59 Consult Discharge Plan - Plan Referrals: Debora Sutton, EXPLOSIVES OPERATOR [Primary Care Provider] -
--- NOTE | 2017-05-31 19:10 | Electrocardiograph Report ---
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
--- NOTE | 2017-05-31 19:13 | Oncology Inp Consult Note ---
Date of Encounter: 06/03/17 Time of Encounter: 19:08 Assessment and Plan (1) B-cell lymphoma Status: Acute Assessment and plan: Aggressive lymphoma. A component of follicular lymphoma grade 3" also possible diffuse large B-cell lymphoma. Stage IV bone marrow involvement Has significant hepatosplenomegaly. Liver comes almost to the right pelvis. Spleen size 16 cm. By CAT scan no cirrhosis. But evidence of portal hypertension Also retroperitoneal lymph nodes largest 2.5 cm A PET scan was not a complete study in 05/29/2017 lateral cervical buttock adenopathy. Mediastinal adenopathy. Largest on the right neck 1.3 cm. Largest axillary on the right 3.6 cm. Maximum SUV 5.1 Bone marrow biopsy by interventional radiology 05/17/2017 showed aggressive B- cell lymphoma with 14:18 translocation. This is consistent with grade 3 follicular lymphoma. This population appears to express CD1 Also large B cells appears to be CD10 negative BCL 6 positive and mom one positive by immunohistochemistry suggestive of non-GCB type. A caveat is immunohistochemistry could be less sensitive for liver expressing CD10. Pathology favors GCB type overall Cytogenetics normal male Negative for BCL 6, MYC rearrangement, MYC amplification IPI score 1 for stage IV disease Treatment Reviewed NCCN guidelines. For cycle 1 proceed with R CHOP 6 cycles every 3 weeks. Cycle 1 to reduce cyclophosphamide to 600 mg/m subsequently increased to 750 mg/m as tolerated Elevated uric acid 7.4. Line tumor lysis prophylaxis Start allopurinol 300 mg by mouth at bedtime current creatinine 1.2 He had a port placed by interventional radiology on 05/31/2017 Qualifiers: B-cell lymphoma type: unspecified B-cell Lymphoma site: multiple regions Qualified Code(s): C85.18 - Unspecified B-cell lymphoma, lymph nodes of multiple sites (2) Pancytopenia Status: Acute Assessment and plan: Progressive anemia requiring blood transfusion twice within the last 2 months. Also progressive thrombocytopenia platelet count 60,000. This is secondary to bone marrow involvement lymphoma up to 25% Hepatitis C and B negative on 01/26/2017 Anemia workup negative with normal iron levels B12 folate TSH I expect pancytopenia to improve with treatment of lymphoma. It may get worse before improving - Data of Consult Patient: known to practice within the last 3 years Requesting Physician: Enid Evans MD Primary Care Provider: Debora Sutton CNP - Consult Narrative Reason for consult: Diffuse large B-cell lymphoma History of present illness: Mr. Marquis is a 51 year old male - Data of Consult Patient: new to practice Requesting Physician: Enid Evans MD Primary Care Provider: Debora Sutton CNP - Consult Narrative Reason for consult: Anemia and thrombocytopenia History of present illness: Mr. Marquis is a 51 year old male recurrent hospitalization with anemia hemoglobin around 6.5. Received blood transfusions 2 units 04/25/2017 and another 2 units 05/14/2017. Also his thrombocytopenia is getting worse. Platelet counts 111 at [facility] 02/22/[address] CT abdomen and pelvis with contrast 05/14/2017 showed retroperitoneal adenopathy stable compared to 02/15/2017. Right side external iliac 2.3 cm left pelvic wall 2.1 cm. Per left retroperitoneal lymph node 2.4 cm He was evaluated at [facility] and I reviewed what is [facility] records. Office notes from Dr. Caro dated 02/22/2017. Elevated alkaline phosphatase of 407 02/22/2017. Ulcer significant weight loss since August 2016. CT scan on 02/15/2017 showed hepatosplenomegaly and portal hypertension with varices No liver biopsy done. Primary biliary cirrhosis was in the differential Both AYANNA antimitochondrial antibody negative on January 2017 Past Med Surg Social Fam HX - Past Medical History Medical history: cirrhosis (not yet confirmed), diabetes, malignancy (B cell lymphoma -- new diagnosis) Psychiatric history: no psych history - Past Surgical History Surgical History: orthopedic, other (knee) - Social History Smoking Status: Former smoker Smokeless Tobacco Status: No Alcohol use: none Drug use: none - Family History Mother Adopted: No Living Status: Still Living Hx Family Cardiac Disorders: Yes Hx Family Respiratory Disorders: No Hx Family Cancer: Yes (sister lymphoma) Hx Family GI Disorders: No Hx Family Endocrine Disorder: No Hx Family Neuromuscular Disorders: No Hx Family Neurologic Disorders: No Hx Family HEENT Disorders: No Hx Family Autoimmune Disorders: No Father Living Status: Hx Family GI Disorders: No Hx Family Neurologic Disorders: Yes (stroke) Medications and Allergies Atorvastatin Calcium [Lipitor] 20 mg PO HS 10/26/16 [History] Bupropion HCl [Wellbutrin Xl] 300 mg PO DAILY 10/26/16 [History] Ferrous Sulfate 325 mg PO BIDWM 10/26/16 [History] Metformin HCl [Glucophage] 1,000 mg PO DAILY 10/26/16 [History] SitaGLIPtin [Januvia] 100 mg PO DAILY 10/26/16 [History] Ascorbic Acid [Vitamin C] 500 mg PO DAILY 04/24/17 [History] Cholecalciferol (D-3) [Vitamin D] 1,000 unit PO DAILY 04/24/17 [History] Cyanocobalamin (Vitamin B-12) [Vitamin B12] 1,000 mcg PO DAILY 04/24/17 [History ] Multivitamin [Multi-Day Vitamins] 1 each PO DAILY 04/24/17 [History] Ursodiol [Joshua Forte] 500 mg PO BID 04/24/17 [History] Omeprazole [PriLOSEC] 40 mg PO DAILY@0630 #30 04/25/17 [Rx] Ondansetron ODT [Zofran ODT] 4 mg SL Q6HR PRN #30 tab.rapdis 05/17/17 [Rx] LORazepam [Ativan] 1 - 2 tab PO AD PRN #10 tablet 05/31/17 [Rx] Allopurinol [Zyloprim 300 MG] 300 mg PO DAILY #30 tablet 06/01/17 [Rx] 3 Allergy/AdvReac Type Severity Reaction Status Date / Time No Known Allergies Allergy Verified 10/26/16 12:52 Oncology - Exam - Constitutional Vitals: Temp Pulse Resp BP Pulse Ox 98.2 F 95 14 118/64 98 05/31/17 19:04 05/31/17 19:04 05/31/17 19:04 05/31/17 19:04 05/31/17 19:04 Exam: GENERAL: Alert and oriented, well appearing. Mental Status: Affect appropriate for circumstances HEENT: Sclerae anicteric. No mucositis or thrush. No other oral or pharyngeal lesions or erythema. Skin: No rashes or petechiae. No evidence of skin malignancy Lymph nodes: No cervical, supraclavicular, axillary, or inguinal adenopathy. Lungs: Air entry decreased at bases No rhonchi or wheezing Cardiovascular: Regular rate and rhythm. No skipped beats Abdomen: Soft, nontender; no organomegaly or masses palpable. Extremities: No edema. No calf swelling or tenderness. No joint deformity. Neurologic: Alert, cranial nerves II-XII intact; normal gait; no focal weakness or sensory abnormalities. Generalized deconditioning Oncology - Results Labs: Short CBC 05/31/17 Range/Units 05:59 WBC 4.3 (4.3-11.1) K/mcL Hgb 7.7 L (12.9-16.9) g/dL Hct 24.2 L (37.5-50.1) % Plt Count 60 L (140-400) K/mcL Neutrophils # 2.0 (1.6-8.9) K/mcL BMP 05/31/17 05:59 Sodium 135 L Potassium 4.2 Chloride 106 Carbon Dioxide 25 BUN 27 H Creatinine 1.19 Glucose 192 H Calcium 10.3 Liver Function 05/31/17 Range/Units 05:59 Total Bilirubin 0.5 (0.2-1.2) mg/dL AST 18 (5-34) Units/L ALT 11 (0-55) Units/L Alkaline Phosphatase 368 H (38-126) Units/L Albumin 1.9 L (3.5-5.0) g/dL Consult Discharge Plan - Plan Instructions: Diabetes Mellitus Type 2 in Adults (DC), Anemia (GEN) Additional Instructions: Follow-up with oncology as scheduled Referrals: Debora Sutton, SKIFF OPERATOR [Primary Care Provider] - (in 1-2 weeks) Prescriptions: Allopurinol [Zyloprim 300 MG] 300 mg PO DAILY #30 tablet
[2017-05-31] MEDS ORDERED: Insulin LISPRO 300 UNITS/3 ML VIAL SQ SCH (21:30)
[2017-06-01 06:36] LABS: Eosinophils # 0.2 K/mcL (0.0-0.6); Hematocrit 24.4 % (37.5-50.1); Hemoglobin 7.9 g/dL (12.9-16.9); Mean Corpuscular HGB Conc 32.4 g/dL (31.6-35.5); Mean Corpuscular Hemoglobin 30.4 pg (28.0-33.3); Mean Corpuscular Volume 93.8 fL (83.0-100.0); Mean Platelet Volume 10.3 fL (9.4-12.4); Red Cell Distribution Width 17.1 % (11.5-14.5)
[2017-06-01 06:37] LABS: Platelet Count 54 K/mcL (140-400)
[2017-06-01 06:50] LABS: BUN/Creatinine Ratio 20 (6-26); Blood Urea Nitrogen 29 mg/dL (8-26); Calcium 10.1 mg/dL (8.6-10.8); Carbon Dioxide 24 mEq/L (19-29); Chloride 105 mEq/L (98-109); Glucose 233 mg/dL (70-99); Osmolality,Calculated 291 (280-300); Potassium 4.7 mEq/L (3.5-4.5); Sodium 134 mEq/L (136-145); eGFR For African Americans > 60 (> 60); eGFR For Non-African Americans 50 (> 60)
[2017-06-01 08:43] LABS: Monocytes # 0.4 K/mcL (0.0-1.3); Neutrophils # 3.4 K/mcL (1.6-8.9); Platelet Estimate Decreased (Normal)
[2017-06-01 08:45] LABS: Anisocytosis 1+ (Not Present); Polychromasia 1+ (Not Present)
[2017-06-01] MEDS: Insulin LISPRO 300 UNITS/3 ML VIAL SQ SCH ×2 (08:52→12:00)
[2017-06-01] MEDS: Ascorbic Acid 500 MG TABLET PO SCH (09:08)
[2017-06-01] MEDS: Multivit/Ca/Min/Fe/FA 1 TAB TABLET PO SCH (09:08)
[2017-06-01 11:02] VITALS: BP 103/63
--- NOTE | 2017-06-01 11:29 | Discharge Summary ---
Date of Encounter: 06/01/17 Time of Encounter: 11:27 - Discharge Diagnosis (1) Symptomatic anemia Priority: Primary Status: Acute (2) B-cell lymphoma Priority: Secondary Status: Acute Qualifiers: B-cell lymphoma type: unspecified B-cell Lymphoma site: multiple regions Qualified Code(s): C85.18 - Unspecified B-cell lymphoma, lymph nodes of multiple sites (3) Diabetes mellitus type 2, uncomplicated Priority: Secondary Status: Chronic Qualifiers: Diabetes mellitus rat exterminator insulin use: without rat exterminator use Qualified Code(s): E11.9 - Type 2 diabetes mellitus without complications (4) DVT prophylaxis Priority: Secondary Status: Acute (5) Chronic kidney disease, stage II (mild) Priority: Secondary Status: Chronic - Discharge Medications Prescriptions: Allopurinol [Zyloprim 300 MG] 300 mg PO DAILY #30 tablet Home Medications: Atorvastatin Calcium [Lipitor] 20 mg PO HS 10/26/16 [History] Bupropion HCl [Wellbutrin Xl] 300 mg PO DAILY 10/26/16 [History] Ferrous Sulfate 325 mg PO BIDWM 10/26/16 [History] Metformin HCl [Glucophage] 1,000 mg PO DAILY 10/26/16 [History] SitaGLIPtin [Januvia] 100 mg PO DAILY 10/26/16 [History] Ascorbic Acid [Vitamin C] 500 mg PO DAILY 04/24/17 [History] Cholecalciferol (D-3) [Vitamin D] 1,000 unit PO DAILY 04/24/17 [History] Cyanocobalamin (Vitamin B-12) [Vitamin B12] 1,000 mcg PO DAILY 04/24/17 [History ] Multivitamin [Multi-Day Vitamins] 1 each PO DAILY 04/24/17 [History] Ursodiol [Joshua Forte] 500 mg PO BID 04/24/17 [History] Omeprazole [PriLOSEC] 40 mg PO DAILY@0630 #30 04/25/17 [Rx] Ondansetron ODT [Zofran ODT] 4 mg SL Q6HR PRN #30 tab.rapdis 05/17/17 [Rx] LORazepam [Ativan] 1 - 2 tab PO AD PRN #10 tablet 05/31/17 [Rx] Allopurinol [Zyloprim 300 MG] 300 mg PO DAILY #30 tablet 06/01/17 [Rx] Allergies/Adverse Reactions: 3 Allergy/AdvReac Type Severity Reaction Status Date / Time No Known Allergies Allergy Verified 10/26/16 12:52 Procedures/tests Complete & Pending: Procedures Performed prior 72 hours Category Date Time Status IR cvc insert with port [IR] Routine IR 05/31/17 Completed IR us guide needle place [IR] Routine IR 05/31/17 Completed Date of admission: 05/31/17 00:35 Primary care physician: Debora Sutton CNP Consults: 05/31/17 09:39 Consult to Interventional Radiology [CONS] Routine Consulting Provider: Radiology Interventional Cols Reason for Consult: Placement of port cath Time Notified: 09:39 Call Completed: Yes Discharging clinician: Enid Evans Anticipated date of discharge: 06/01/17 - Patient Status Disposition: Home, Self-Care Condition: Good Functional capacity at discharge: independent ambulation Overall status at discharge: patient is progressing back to baseline - Discharge Instructions Instructions: Diabetes Mellitus Type 2 in Adults (DC), Anemia (GEN) Follow Up With: Debora Sutton CNP [Primary Care Provider] - (in 1-2 weeks) Additional Instructions: Follow-up with oncology as scheduled - Diet and Activity Activity: increase activity as tolerated Diet: diabetic diet, low fat, low cholesterol, low salt diet Hospital course: Mr. 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 He was found to have a hemoglobin level of 7.2 and received 1 unit of packed red blood cells. His blood counts improved only slightly but he has been feeling much better since then. Patient also has thrombocytopenia. Hematology was consulted and per discussion with them, patient underwent port Placement yesterday. He has continued to do well and is no longer having shortness of breath. He feels much less fatigue and is clinically stable to be discharged home. His hemoglobin levels today 7.9. Follow up with oncology and started on chemotherapy with [facility] early next week. He is at risk for tumor lysis syndrome and has been started on allopurinol which he will continue to take at home. He does have chronic kidney disease stage II. His creatinine has been at baseline. - Time Spent with Patient Total time spent providing and/or coordinating discharge services: Less than 30 minutes (25 min) - Constitutional Vitals: Temp Pulse Resp BP Pulse Ox 97.6 F 86 16 103/63 99 06/01/17 10:58 06/01/17 10:58 06/01/17 10:58 06/01/17 10:58 06/01/17 10:58 General appearance: Present: cooperative, A&O X 3, pleasant, no acute distress, loss of weight, answers questions appropriately - Neck Neck exam general surgery: Present: lymphadenopathy, supple, trachea midline - Respiratory Respiratory exam: Present: CTAB. Absent: accessory muscle use, rales, rhonchi, wheezes - Cardiovascular Cardiovascular exam: Present: RRR, +S1, +S2. Absent: diastolic murmur, gallop, rubs, systolic murmur - GI/Abdominal GI/Abdominal exam: Present: normal bowel sounds, soft, no peritoneal signs. Absent: distended, tenderness - Neurological Exam Neurological exam: Present: alert, oriented X3, no focal deficits. Absent: facial droop, speech deficit - Skin Skin exam: Present: dry, intact, pallor
[2017-06-03] MEDS ORDERED: Dexamethasone 10 MG/ML VIAL IV ONE
[2017-06-03] MEDS ORDERED: Dexamethasone 10 MG/ML VIAL IV PRN
[2017-06-03] MEDS ORDERED: Prochlorperazine 10 MG/2 ML VIAL IV PRN ×2
[2017-06-03] MEDS ORDERED: SODIUM CHLORIDE 0.9% IV SCH ×3
[2017-06-03] MEDS ORDERED: Famotidine 20 MG/2 ML VIAL IV PRN
[2017-06-03] MEDS ORDERED: *HR* Meperidine 25 MG/ML SYRINGE IV PRN
[2017-06-03] MEDS ORDERED: RITUXIMAB IV SCH
[2017-06-03] MEDS ORDERED: Fosaprepitant Dimeglumine 150 MG in 0.9 % Sodium Chloride 250 ML IV SCH
[2017-06-03] MEDS ORDERED: VINCRISTINE IV SCH
[2017-06-03] MEDS ORDERED: CYCLOPHOSPHAMIDE IV SCH
[2017-06-03] MEDS ORDERED: 0.9 % Sodium Chloride 500 ML IVC SCH
[2017-06-03] MEDS ORDERED: Acetaminophen 325 MG TABLET PO ONE
[2017-06-03] MEDS ORDERED: DOXOrubicin HCL 200 MG/100 ML MLS IV SCH
[2017-06-03] MEDS ORDERED: *HR* Promethazine 25 MG/ML VIAL IV PRN
[2017-06-03] MEDS ORDERED: *HR* LORazepam 2 MG/ML VIAL IV PRN ×2
== END 2017-06-01 12:15 | disposition home or self-care (01) | DRG 841 ==
LOC: EMEROO 19:06 → 3ANU 19:06 → SUATTDRO 05-31 00:35
PROVIDERS: ADMIT Family Medicine; ATTEND Internal Medicine

== ENCOUNTER 2017-06-05 22:05 | Inpatient (IN) ==
[2017-06-05] MEDS ORDERED: 0.9 % Sodium Chloride 1,000 ML IVC ONE ×2 (22:34→22:56)
[2017-06-05] MEDS ORDERED: Ondansetron 4 MG/2 ML VIAL IVP ONE (22:49)
[2017-06-05 22:57] LABS: Bilirubin,Urine Negative (Negative); Blood,Urine Moderate (Negative); Clarity,Urine Cloudy (Clear); Color,Urine Yellow (Yellow); Glucose,Urine (UA) 100 mg/dL (Normal); Ketones,Urine Negative (Negative); Leukocyte Esterase,Urine Negative (Negative); Nitrite,Urine Negative (Negative); PH,Urine 5.5 pH Units (5.0-8.0); Protein,Urine 30 mg/dL (Neg-Trace); Specific Gravity,Urine 1.025 (1.010-1.025); Urobilinogen,Urine Normal (Normal)
--- NOTE | 2017-06-05 22:58 | Emergency Department Note ---
Disposition Clinical Impression: Nausea vomiting and diarrhea, Ureterolithiasis Sepsis Qualifiers: Sepsis type: sepsis due to unspecified organism Qualified Code(s): A41.9 - Sepsis, unspecified organism Disposition: Admitted As Inpatient Condition: Fair Fever HPI - General Chief Complaint: ED Fever Stated Complaint: N/V/D, fever Chemo Saturday Time Seen by Provider: 06/05/17 22:34 Source: patient Mode of arrival: private vehicle Limitations: no limitations Nursing Notes Reviewed: Yes Vital Signs Reviewed: Yes - History of Present Illness HPI Narrative: 51-year-old male history of non-Hodgkin's lymphoma recently diagnosed who started chemotherapy on Saturday presents to the ER due to fever chills nausea vomiting and diarrhea. Patient states he underwent his first round of chemotherapy on Saturday. He was feeling okay but then this morning woke up having chills and fever at home. They state they checked his temperature which was 101.8. They tried to call his oncologist but did not receive a return call so they brought him in. He reports feeling nauseated as well as having nonbloody nonbilious vomiting as well as nonbloody diarrhea. He denies any abdominal pain. No other complaints. Maximum Temperature Reported: 101.8 F Temperature Source: oral Associated symptoms: Reports: chills, rigors, nausea, vomiting, diarrhea. Denies: abdominal pain Improves with: nothing Worsens with: nothing Treatments prior to arrival fever: none - Related Data Home Medications Medication Instructions Recorded Confirmed Atorvastatin Calcium [Lipitor] 20 mg PO HS 10/26/16 05/30/17 Bupropion HCl [Wellbutrin Xl] 300 mg PO DAILY 10/26/16 05/30/17 Ferrous Sulfate 325 mg PO BIDWM 10/26/16 05/30/17 Metformin HCl [Glucophage] 1,000 mg PO DAILY 10/26/16 05/30/17 SitaGLIPtin [Januvia] 100 mg PO DAILY 10/26/16 05/30/17 Ascorbic Acid [Vitamin C] 500 mg PO DAILY 04/24/17 05/30/17 Cholecalciferol (D-3) [Vitamin D] 1,000 unit PO DAILY 04/24/17 05/30/17 Cyanocobalamin (Vitamin B-12) 1,000 mcg PO DAILY 04/24/17 05/30/17 [Vitamin B12] Multivitamin [Multi-Day Vitamins] 1 each PO DAILY 04/24/17 05/30/17 Ursodiol [Joshua Forte] 500 mg PO BID 04/24/17 05/30/17 Previous Rx's Medication Instructions Recorded Omeprazole [PriLOSEC] 40 mg PO DAILY@0630 #30 04/25/17 Ondansetron ODT [Zofran ODT] 4 mg SL Q6HR PRN #30 tab.rapdis 05/17/17 LORazepam [Ativan] 1 - 2 tab PO AD PRN #10 tablet 05/31/17 Allopurinol [Zyloprim 300 MG] 300 mg PO DAILY #30 tablet 06/01/17 Omeprazole [PriLOSEC] 20 mg PO BIDAC #30 cap 06/05/17 Ondansetron ODT [Zofran ODT] 4 mg PO Q4H PRN #30 tab.rapdis 06/05/17 Prochlorperazine Maleate 10 mg PO Q6H PRN #30 tablet 06/05/17 [Compazine] Allergies Allergy/AdvReac Type Severity Reaction Status Date / Time No Known Allergies Allergy Verified 10/26/16 12:52 All systems ED: reviewed and negative except as stated. Constitutional: Reports: fever, chills, weakness Cardiovascular: Denies: chest pain Respiratory: Denies: cough, dyspnea Gastrointestinal: Reports: nausea, vomiting, diarrhea. Denies: abdominal pain, melena, hematochezia Genitourinary: Denies: dysuria, hematuria Fever PMH - Past Medical History Medical history: Reports: cancer, cirrhosis, diabetes, hyperlipidemia, hypertension, malignancy Surgical history: Reports: orthopedic, other (knee) Psychiatric history: Reports: no psych history - Social History Smoking Status: Former smoker Alcohol use: Reports: none Drug use: Reports: none Physical Exam - General Limitations: no limitations General appearance: alert, in no apparent distress - Head Head exam: atraumatic, normocephalic, normal inspection - Eye Eye exam: Present: normal appearance, EOMI - ENT ENT exam: normal exam - Neck Neck exam: Present: normal inspection, full ROM - Chest Chest inspection: Present: normal inspection, symmetric chest wall rise - Respiratory Respiratory exam: Present: normal lung sounds bilaterally - Cardiovascular Cardiovascular exam: Present: normal rhythm, tachycardia, normal heart sounds - Abdominal Exam Abdominal exam: Present: soft, Non-Tender. Absent: tenderness, distention, guarding, rigidity - Extremities Exam Extremities exam: Present: normal inspection, full ROM - Expanded Upper Extremity Exam Shoulder exam: Present: normal inspection, full ROM Arm exam: Present: normal inspection, full ROM Elbow exam: Present: normal inspection, full ROM Forearm/Wrist exam: Present: normal inspection, full ROM Hand exam: Present: normal inspection, full ROM - Expanded Lower Extremity Exam Hip/Pelvis exam: Present: normal inspection, full ROM Upper leg exam: Present: normal inspection, full ROM Knee exam: Present: normal inspection, full ROM Lower leg exam: Present: normal inspection, full ROM Ankle exam: Present: normal inspection, full ROM Foot/toe exam: Present: normal inspection, full ROM Neurovascular/Tendon exam: Absent: motor deficit, sensory deficit - Neurological Exam Neurological exam: Present: alert - Psychiatric Psychiatric exam: Present: normal affect, normal mood - Skin Skin exam: Present: warm, dry, intact, normal color Course Course Narrative: Patient seen and examined. He is tachycardic here. Temp 99.8. We will check labs including urinalysis, chest x-ray, lactate, blood cultures. We will give him 2 L of normal saline with Zofran and reassess. He will likely require admission - Reevaluation(s) Reevaluation #1: Discussed results of lab work with the patient and family. He did have some blood in his urine and they report he had a prior history of renal stones in the past. We will obtain a CT scan of the abdomen and pelvis. Reevaluation #2: CT scan demonstrates ureterolithiasis. Renal function within normal limits. Patient given vancomycin and Zosyn for sepsis of unknown source. Patient has received 2 L of normal saline we will add an additional liter given his continued tachycardia and elevated BUN/creatinine ratio. Patient will be admitted to the hospitalist service. Vital Signs Temperature 99.8 F H 06/05/17 22:07 Pulse Rate 139 06/05/17 22:07 Respiratory Rate 22 06/05/17 22:07 Blood Pressure 105/52 06/05/17 22:07 O2 Sat by Pulse Oximetry 100 06/05/17 22:07 Temperature 97.5 F L 06/06/17 05:32 Pulse Rate 112 06/06/17 05:32 Respiratory Rate 19 06/06/17 05:32 Blood Pressure 94/54 06/06/17 05:32 O2 Sat by Pulse Oximetry 97 06/06/17 05:32 Oxygen Delivery Oxygen Delivery Room Air Fever - MDM Narrative Medical decision making narrative: 51-year-old male presents to the ER due to fevers, nausea, vomiting, diarrhea. On chemotherapy with first treatment on Saturday. Fever of 101.8 measured at home. He was afebrile here without intervention. Tachycardic in the 130s presentation. Labs to measured a leukocytosis as well as anemia and thrombocytopenia. Urinalysis demonstrates 3-5 WBCs with blood noted. CT scan shows a 6 mm stone with mild hydronephrosis. I do not believe this is a septic stone at this time given his urinalysis. Patient given a total of 3 L of normal saline in the emergency department. Patient given vancomycin and Zosyn. Admitted to the hospitalist service. - Lab Data Lab results reviewed: Yes I reviewed the patient's lab results. Result diagrams: 06/05/17 23:03 06/05/17 23:03 Lab Results 06/05/17 06/05/17 06/05/17 Range/Units 22:44 23:03 23:03 WBC 14.7 H D (4.3-11.1) K/mcL RBC 2.50 L (4.19-5.50) M/mcL Hgb 7.8 L (12.9-16.9) g/dL Hct 23.8 L (37.5-50.1) % MCV 95.2 (83.0-100.0) fL MCH 31.2 (28.0-33.3) pg MCHC 32.8 (31.6-35.5) g/dL RDW 16.3 H (11.5-14.5) % Plt Count 71 L (140-400) K/mcL MPV 9.9 (9.4-12.4) fL Seg Neutrophils % 86.0 % Band Neutrophils % 12.0 H (0-4) % Lymphocytes % 2.0 % Neutrophils # 14.4 H (1.6-8.9) K/mcL Lymphocytes # 0.3 L (0.6-4.6) K/mcL Dohle Bodies Present A (Not Present) Immature Plt Fraction 1.5 (1.1-6.1) % ESR 93 H (0-10) mm/hr PT (9.4-12.1) Seconds INR Sodium (136-145) mEq/L Potassium (3.5-4.5) mEq/L Chloride (98-109) mEq/L Carbon Dioxide (19-29) mEq/L BUN (8-26) mg/dL Creatinine (0.72-1.25) mg/dL Est GFR ( Amer) (> 60) Est GFR (Non-Af Amer) (> 60) BUN/Creatinine Ratio (6-26) Glucose (70-99) mg/dL Calculated Osmolality (280-300) Lactic Acid (0.5-2.2) mmol/L Calcium (8.6-10.8) mg/dL Total Bilirubin (0.2-1.2) mg/dL Direct Bilirubin (0.0-0.5) mg/dL Indirect Bilirubin (0.0-1.2) mg/dL AST (5-34) Units/L ALT (0-55) Units/L Alkaline Phosphatase (38-126) Units/L Troponin I (0-0.03) ng/mL Serum Total Protein (6.0-8.3) g/dL Albumin (3.5-5.0) g/dL Globulin (2.4-3.5) g/dL Albumin/Globulin Ratio (1.1-2.2) Lipase (8-78) Units/L Urine Color Yellow (Yellow) Urine Clarity Cloudy A (Clear) Urine pH 5.5 (5.0-8.0) pH Units Ur Specific Eaton 1.025 (1.010-1.025) Urine Protein 30 H (Neg-Trace) mg/dL Urine Glucose (UA) 100 H (Normal) mg/dL Urine Ketones Negative (Negative) mg/dL Urine Blood Moderate H (Negative) Urine Nitrite Negative (Negative) Urine Bilirubin Negative (Negative) Urine Urobilinogen Normal (Normal) mg/dL Ur Leukocyte Esterase Negative (Negative) Urine Microscopic RBC 5-15 H (0-3) per hpf Urine Microscopic WBC 3-5 H (0-3) per hpf Ur Squamous Epith Cells Moderate H (None-Few) per lpf Urine Bacteria None Seen (None-Few) per hpf Hyaline Casts None Seen (None-Few) per lpf Ur Culture Indicated? NO (NO) 06/05/17 06/05/17 06/05/17 Range/Units 23:03 23:03 23:03 WBC (4.3-11.1) K/mcL RBC (4.19-5.50) M/mcL Hgb (12.9-16.9) g/dL Hct (37.5-50.1) % MCV (83.0-100.0) fL MCH (28.0-33.3) pg MCHC (31.6-35.5) g/dL RDW (11.5-14.5) % Plt Count (140-400) K/mcL MPV (9.4-12.4) fL Seg Neutrophils % % Band Neutrophils % (0-4) % Lymphocytes % % Neutrophils # (1.6-8.9) K/mcL Lymphocytes # (0.6-4.6) K/mcL Dohle Bodies (Not Present) Immature Plt Fraction (1.1-6.1) % ESR (0-10) mm/hr PT 13.3 H (9.4-12.1) Seconds INR 1.2 Sodium 133 L (136-145) mEq/L Potassium 4.2 (3.5-4.5) mEq/L Chloride 107 (98-109) mEq/L Carbon Dioxide 18 L (19-29) mEq/L BUN 44 H (8-26) mg/dL Creatinine 1.18 (0.72-1.25) mg/dL Est GFR ( Amer) > 60 (> 60) Est GFR (Non-Af Amer) > 60 (> 60) BUN/Creatinine Ratio 37 H (6-26) Glucose 147 H (70-99) mg/dL Calculated Osmolality 290 (280-300) Lactic Acid 1.7 (0.5-2.2) mmol/L Calcium 9.2 (8.6-10.8) mg/dL Total Bilirubin 0.4 (0.2-1.2) mg/dL Direct Bilirubin 0.3 (0.0-0.5) mg/dL Indirect Bilirubin 0.1 (0.0-1.2) mg/dL AST 12 (5-34) Units/L ALT 8 (0-55) Units/L Alkaline Phosphatase 304 H (38-126) Units/L Troponin I (0-0.03) ng/mL Serum Total Protein 6.3 (6.0-8.3) g/dL Albumin 2.0 L (3.5-5.0) g/dL Globulin 4.3 H (2.4-3.5) g/dL Albumin/Globulin Ratio 0.5 L (1.1-2.2) Lipase 15 (8-78) Units/L Urine Color (Yellow) Urine Clarity (Clear) Urine pH (5.0-8.0) pH Units Ur Specific Eaton (1.010-1.025) Urine Protein (Neg-Trace) mg/dL Urine Glucose (UA) (Normal) mg/dL Urine Ketones (Negative) mg/dL Urine Blood (Negative) Urine Nitrite (Negative) Urine Bilirubin (Negative) Urine Urobilinogen (Normal) mg/dL Ur Leukocyte Esterase (Negative) Urine Microscopic RBC (0-3) per hpf Urine Microscopic WBC (0-3) per hpf Ur Squamous Epith Cells (None-Few) per lpf Urine Bacteria (None-Few) per hpf Hyaline Casts (None-Few) per lpf Ur Culture Indicated? (NO) 06/05/17 Range/Units 23:03 WBC (4.3-11.1) K/mcL RBC (4.19-5.50) M/mcL Hgb (12.9-16.9) g/dL Hct (37.5-50.1) % MCV (83.0-100.0) fL MCH (28.0-33.3) pg MCHC (31.6-35.5) g/dL RDW (11.5-14.5) % Plt Count (140-400) K/mcL MPV (9.4-12.4) fL Seg Neutrophils % % Band Neutrophils % (0-4) % Lymphocytes % % Neutrophils # (1.6-8.9) K/mcL Lymphocytes # (0.6-4.6) K/mcL Dohle Bodies (Not Present) Immature Plt Fraction (1.1-6.1) % ESR (0-10) mm/hr PT (9.4-12.1) Seconds INR Sodium (136-145) mEq/L Potassium (3.5-4.5) mEq/L Chloride (98-109) mEq/L Carbon Dioxide (19-29) mEq/L BUN (8-26) mg/dL Creatinine (0.72-1.25) mg/dL Est GFR ( Amer) (> 60) Est GFR (Non-Af Amer) (> 60) BUN/Creatinine Ratio (6-26) Glucose (70-99) mg/dL Calculated Osmolality (280-300) Lactic Acid (0.5-2.2) mmol/L Calcium (8.6-10.8) mg/dL Total Bilirubin (0.2-1.2) mg/dL Direct Bilirubin (0.0-0.5) mg/dL Indirect Bilirubin (0.0-1.2) mg/dL AST (5-34) Units/L ALT (0-55) Units/L Alkaline Phosphatase (38-126) Units/L Troponin I 0.00 (0-0.03) ng/mL Serum Total Protein (6.0-8.3) g/dL Albumin (3.5-5.0) g/dL Globulin (2.4-3.5) g/dL Albumin/Globulin Ratio (1.1-2.2) Lipase (8-78) Units/L Urine Color (Yellow) Urine Clarity (Clear) Urine pH (5.0-8.0) pH Units Ur Specific Eaton (1.010-1.025) Urine Protein (Neg-Trace) mg/dL Urine Glucose (UA) (Normal) mg/dL Urine Ketones (Negative) mg/dL Urine Blood (Negative) Urine Nitrite (Negative) Urine Bilirubin (Negative) Urine Urobilinogen (Normal) mg/dL Ur Leukocyte Esterase (Negative) Urine Microscopic RBC (0-3) per hpf Urine Microscopic WBC (0-3) per hpf Ur Squamous Epith Cells (None-Few) per lpf Urine Bacteria (None-Few) per hpf Hyaline Casts (None-Few) per lpf Ur Culture Indicated? (NO) - Radiology Data Radiology results reviewed: Yes I reviewed the patient's radiology results. Chest X-Ray 06/05/17 22:11 IMPRESSION: Stable portable study. D/ / Anika Carrizales Cha, MD / Anika Carrizales Cha, MD Interpreting Provider: Anika Carrizales Cha, MD Abdomen/Pelvis CT 06/06/17 01:10 IMPRESSION: 1. 6 mm right UPJ calculus with mild right-sided hydronephrosis. 2. Grossly stable retroperitoneal and pelvic adenopathy consistent with the patient's known malignancy. 3. Mild anasarca and small quantity of free pelvic fluid consistent with third-spacing of fluid. D/ / Martín Nash MD / Martín Nash MD Interpreting Provider: Martín Nash MD Critical Care Time Critical Care Time: Yes Total Critical Care Time: 35 Attestation: Critical care performed: Time is exclusive of separately billable procedures. Time includes: direct patient care, patient reassessment, coordination of patient care, interpretation of data (laboratory data, radiology data, and respiratory data), review of patient's medical records, medical consultation and documentation of patient care. Procedures included in critical care time: Procedures excluded from critical care time: Maryann.Billy - Sarah Situation: Demographics, MOA Background: Presenting Complaint, Relevant PMH, Meds, & Allergies Assessment: Vital Signs, Course and respsone to treatment, Exam Concerns, Patient/Family Expectation, Pertinant Lab Results, Outstanding Labs Recommendation: Barrier(s) to disposition, Recommendation based on pending studies, treatments, or consults Sarah Report Given to: Dr. Jesus Smith Repor Time: 03:04 Attestation Statement - Attestation Attestation: I, Blair Shields MD, personally evaluated this patient and discussed their management with the resident physician. I reviewed the resident's note and agree with the documented findings, medical decision making, and plan of care. 51-year-old male who was recently diagnosed with lymphoma and started chemotherapy 2 days ago presents to the emergency department with a complaint of diarrhea that started last night. Today he developed nausea and vomiting with dry heaves. He also developed a fever up to 101.8. No cough or difficulty breathing. No melena, hematemesis, or hematochezia. On examination patient is a well-developed thin ill-appearing male in no acute distress. He is drowsy but responds to verbal stimuli. No cyanosis or diaphoresis. Chest is nontender to palpation. Breath sounds clear and equal bilaterally. Heart tachycardic and regular. Abdomen soft with no tympany or distention. Normal bowel sounds. Labs reviewed. Leukocytosis with bandemia. Baseline anemia. Chest x-ray negative. CT of the abdomen and pelvis shows a stone at the right UPJ with mild right hydronephrosis. Lactic acid normal. Blood cultures obtained and antibiotics initiated. The hospitalist, Dr. Lee, was consulted and accepted admission of the patient.
[2017-06-05 22:59] LABS: Bacteria,Urine None Seen per hpf (None-Few); Hyaline Casts,Urine None Seen per lpf (None-Few); Squamous Epithelial Cell,Urine Moderate per lpf (None-Few)
[2017-06-05 23:09] LABS: Mean Corpuscular Volume 95.2 fL (83.0-100.0)
[2017-06-05 23:11] LABS: Hematocrit 23.8 % (37.5-50.1); Immature Platelets 1.5 % (1.1-6.1); Mean Corpuscular HGB Conc 32.8 g/dL (31.6-35.5); Mean Corpuscular Hemoglobin 31.2 pg (28.0-33.3); Mean Platelet Volume 9.9 fL (9.4-12.4); Red Cell Distribution Width 16.3 % (11.5-14.5)
[2017-06-05 23:13] LABS: Hemoglobin 7.8 g/dL (12.9-16.9); Platelet Count 71 K/mcL (140-400)
[2017-06-05 23:15] LABS: INR 1.2; Prothrombin Time 13.3 Seconds (9.4-12.1)
[2017-06-05 23:25] LABS: Alanine Aminotransferase 8 Units/L (0-55); Albumin/Globulin Ratio 0.5 (1.1-2.2); Alkaline Phosphatase 304 Units/L (38-126); Aspartate Amino Transferase 12 Units/L (5-34); BUN/Creatinine Ratio 37 (6-26); Bilirubin,Direct 0.3 mg/dL (0.0-0.5); Bilirubin,Indirect 0.1 mg/dL (0.0-1.2); Bilirubin,Total 0.4 mg/dL (0.2-1.2); Blood Urea Nitrogen 44 mg/dL (8-26); Calcium 9.2 mg/dL (8.6-10.8); Carbon Dioxide 18 mEq/L (19-29); Chloride 107 mEq/L (98-109); Globulin 4.3 g/dL (2.4-3.5); Glucose 147 mg/dL (70-99); Lipase 15 Units/L (8-78); Osmolality,Calculated 290 (280-300); Potassium 4.2 mEq/L (3.5-4.5); Sodium 133 mEq/L (136-145); Total Protein 6.3 g/dL (6.0-8.3); eGFR For African Americans > 60 (> 60); eGFR For Non-African Americans > 60 (> 60)
[2017-06-05] MEDS ORDERED: *HR* LORazepam 2 MG/ML VIAL IVP ONE (23:29)
[2017-06-05 23:30] LABS: Dohle Bodies Present (Not Present); Lymphocytes # 0.3 K/mcL (0.6-4.6); Neutrophils # 14.4 K/mcL (1.6-8.9)
[2017-06-05] MEDS ORDERED: *HR* LORazepam 2 MG/ML VIAL ONE (23:31)
[2017-06-05] MEDS ORDERED: Piperacillin/Tazobactam 3.375 GM in D5% in Water (Mini-Bag+) 100 ML IVPB ONE (23:53)
[2017-06-05] MEDS ORDERED: Vancomycin 1,000 MG in D5% in Water 250 ML IVPB ONE (23:53)
[2017-06-06] MEDS ORDERED: 0.9 % Sodium Chloride 1,000 ML IVC ONE (02:28)
[2017-06-06] MEDS ORDERED: Aminoglycoside Consult 1 EACH MC ONE (03:13)
--- NOTE | 2017-06-06 03:53 | Internal Med History&Physical ---
<NachoBryson - Last Filed: 06/06/17 04:21> Date of Encounter: 06/06/17 Time of Encounter: 03:50 Assessment and Plan (1) Sepsis Current visit: Yes Status: Acute Presented tachycardic with fever and leukocytosis with bandemia; suspect GI source in setting of NVD CT did demonstrate 6 mm stone in right UPJ with mild hydronephrosis, but UA was not indicative of UTI Was given Vanc/Zosyn in ED, which we will continue as he may be at risk for drug resistant organisms as he recently started chemo Blood cultures collected, awaiting results prior to de-escalation Support with IVF as he is currently NPO Qualifiers: Sepsis type: sepsis due to unspecified organism Qualified Code(s): A41.9 - Sepsis, unspecified organism (2) Ureterolithiasis Current visit: Yes Status: Acute CT did demonstrate 6 mm stone in right UPJ with mild hydronephrosis, but UA was not indicative of UTI states he only had one previous stone 15 years ago Will consult urology and appreciate any further recommendations (3) B-cell lymphoma Current visit: No Status: Chronic Recently diagnosed here at [facility] and started R-CHOP this past Saturday Will consult Oncology for management of chemotherapy Qualifiers: B-cell lymphoma type: unspecified B-cell Lymphoma site: unspecified region Qualified Code(s): C85.10 - Unspecified B-cell lymphoma, unspecified site (4) Chronic anemia Current visit: Yes Status: Chronic Initial Hb of 7.8 is near his baseline and there are no signs of active bleeding ; no indication for transfusion at this time Will type and screen for now and closely monitor Hb and signs of bleeding Continue home iron supplements (5) Non-insulin dependent type 2 diabetes mellitus Current visit: Yes Status: Chronic Start on q6 accuchecks and low dose SSI as he is NPO due to nausea/vomiting A1c checked last week was 5.7% (6) Chronic kidney disease, stage II (mild) Current visit: No Status: Chronic Cr of 1.18 is at his baseline; currently receiving IVF in setting of sepsis Will monitor electrolytes and kidney function (7) DVT prophylaxis Current visit: No Status: Acute Heparin 5000 units BID Internal Medicine - H&P: HPI Chief complaint: fever, nausea, vomiting, diarrhea Admitted From: Home Plans for Post Hospital Care: Home History of present illness: Mr. Marquis is a 51 year old male who presents to the ED for fever, nausea, vomiting, diarrhea that started the previous morning. He is lethargic but easily arousable and does answer questions appropriately, but is accompanied by his was able to assist in history. She states the symptoms started yesterday morning and he had a fever of 101.8. He had nonbloody vomiting throughout the day and had little oral intake because of this. Patient also had at least 8 episodes of loose, nonbloody diarrhea. Of note, patient has been recently diagnosed with B cell lymphoma and underwent his first round of R- CHOP chemotherapy on Saturday. Patient did not have any issues initially following the chemotherapy. He was admitted just last week for systematic anemia requiring 1 unit of blood transfusion. Patient denies any issues with bleeding in stool or urine, and has not had any recent changes in medications or diet. Past Med Surg Social Fam HX - Past Medical History Medical history: cancer, cirrhosis, diabetes, hyperlipidemia, hypertension, malignancy Psychiatric history: no psych history - Past Surgical History Surgical History: orthopedic, other (knee) - Social History Smoking Status: Former smoker Smokeless Tobacco Status: No Alcohol use: none Drug use: none - Family History Mother Adopted: No Living Status: Still Living Hx Family Cardiac Disorders: Yes Hx Family Respiratory Disorders: No Hx Family Cancer: Yes (sister lymphoma) Hx Family GI Disorders: No Hx Family Endocrine Disorder: No Hx Family Neuromuscular Disorders: No Hx Family Neurologic Disorders: No Hx Family HEENT Disorders: No Hx Family Autoimmune Disorders: No Father Living Status: Hx Family GI Disorders: No Hx Family Neurologic Disorders: Yes (stroke) Internal Medicine - H&P: Meds Atorvastatin Calcium [Lipitor] 20 mg PO HS 10/26/16 [History] Bupropion HCl [Wellbutrin Xl] 300 mg PO DAILY 10/26/16 [History] Ferrous Sulfate 325 mg PO BIDWM 10/26/16 [History] Metformin HCl [Glucophage] 1,000 mg PO DAILY 10/26/16 [History] SitaGLIPtin [Januvia] 100 mg PO DAILY 10/26/16 [History] Ascorbic Acid [Vitamin C] 500 mg PO DAILY 04/24/17 [History] Cholecalciferol (D-3) [Vitamin D] 1,000 unit PO DAILY 04/24/17 [History] Cyanocobalamin (Vitamin B-12) [Vitamin B12] 1,000 mcg PO DAILY 04/24/17 [History ] Multivitamin [Multi-Day Vitamins] 1 each PO DAILY 04/24/17 [History] Ursodiol [Joshua Forte] 500 mg PO BID 04/24/17 [History] Omeprazole [PriLOSEC] 40 mg PO DAILY@0630 #30 04/25/17 [Rx] Ondansetron ODT [Zofran ODT] 4 mg SL Q6HR PRN #30 tab.rapdis 05/17/17 [Rx] LORazepam [Ativan] 1 - 2 tab PO AD PRN #10 tablet 05/31/17 [Rx] Allopurinol [Zyloprim 300 MG] 300 mg PO DAILY #30 tablet 06/01/17 [Rx] Omeprazole [PriLOSEC] 20 mg PO BIDAC #30 cap 06/05/17 [Rx] Ondansetron ODT [Zofran ODT] 4 mg PO Q4H PRN #30 tab.rapdis 06/05/17 [Rx] Prochlorperazine Maleate [Compazine] 10 mg PO Q6H PRN #30 tablet 06/05/17 [Rx] 3 Allergy/AdvReac Type Severity Reaction Status Date / Time No Known Allergies Allergy Verified 10/26/16 12:52 All Systems PM: A 10-system review of systems was performed and is negative for pertinent findings except as documented above in the HPI. - Constitutional Constitutional: chills, fever(s), weakness, no night sweats - EENT Eyes: no change in vision, no discharge, no pain, no photophobia Ears: no ear discharge, no ear pain, no tinnitus Nose, mouth and throat: no dysphagia, no nasal discharge, no neck pain, no sore throat - Cardiovascular Cardiovascular ROS IM: edema, no chest pain, no diaphoresis, no dyspnea, no lightheadedness, no palpitations, no syncope - Respiratory Respiratory: no cough, no dyspnea, no wheezing, no excessive phlegm production - Gastrointestinal Gastrointestinal: diarrhea, nausea, vomiting, no abdominal pain, no hematemesis , no hematochezia, no melena - Genitourinary Genitourinary ROS male: no urinary frequency, no urinary hesitancy, no urinary incontinence - Musculoskeletal Musculoskeletal ROS IM: no numbness, no tingling - Integumentary Integumentary IM: no rash, no unusual bruising - Neurological Neurological ROS: no confusion, no convulsions, no focal weakness, no numbness, no tingling, no tremor(s) - Psychiatric Psychiatric: anxiety - Hematologic/Lymphatic Hematologic/Lymphatic: no easy bruising - Constitutional Vitals: Temp Pulse Resp BP Pulse Ox 99.8 F H 118 16 106/56 94 06/05/17 22:07 06/06/17 03:03 06/06/17 03:34 06/06/17 03:34 06/06/17 03:03 General appearance: Present: cooperative, A&O X 3, no acute distress, answers questions appropriately (lethargic, but easily arousable) - Head Head exam: Present: atraumatic, normocephalic - Eye Eye exam: Present: PERRL, conjuntiva pink, sclera anicteric - Neck Neck exam general surgery: Present: supple, trachea midline. Absent: lymphadenopathy - Respiratory Respiratory exam: Present: CTAB. Absent: accessory muscle use, rales, rhonchi, wheezes - Cardiovascular Cardiovascular exam: Present: +S1, +S2, tachycardia (regular rhythm). Absent: diastolic murmur, gallop, rubs, systolic murmur - GI/Abdominal GI/Abdominal exam: Present: normal bowel sounds, soft, no peritoneal signs. Absent: distended, tenderness - Extremities Exam Extremities exam: Present: pedal edema (non pitting), warm, radial pulses palpable and symmetrical. Absent: calf tenderness, cyanotic - Neurological Exam Neurological exam: Present: alert, oriented X3, no focal deficits. Absent: facial droop, speech deficit - Skin Skin exam: Present: dry, intact Internal Med - H&P Results - Labs CBC & Chem 7: 06/05/17 23:03 06/05/17 23:03 <Morgan Lee - Last Filed: 06/06/17 06:40> Date of Encounter: 06/06/17 Internal Medicine - H&P: HPI History of present illness: Mr. Marquis is a 51 year old male All Systems PM: A 10-system review of systems was performed and is negative for pertinent findings except as documented above in the HPI. - Constitutional Vitals: Temp Pulse Resp BP Pulse Ox 97.5 F L 112 19 94/54 97 06/06/17 05:32 06/06/17 05:32 06/06/17 05:32 06/06/17 05:32 06/06/17 05:32 Internal Med - H&P Results - Labs CBC & Chem 7: 06/05/17 23:03 06/05/17 23:03 - Attending Attestation I have independently and personally seen the patient and examined him and discussed the plan with the resident and agree with the finding. Patient has come in with sepsis with the fever high white count borderline blood pressure and PEARL. He has hydronephrosis due to a renal stone. Patient seems lethargic but not confused. His abdomen seems slightly distended but not tender. He is admitted for further evaluation while we are starting him on broad-spectrum antibiotics. We would like to see if his urolithiasis/hydronephrosis is a source of infection and urology was consulted. Other possibility is GI source as he had nausea vomiting diarrhea.
[2017-06-06] MEDS ORDERED: Naloxone 0.4 MG/ML INJ IVP PRN (04:11)
[2017-06-06] MEDS ORDERED: D5% in Water 1,000 ML IVC PRN (04:11)
[2017-06-06] MEDS ORDERED: Dextrose Gel 15 GM PO PRN ×2 (04:11)
[2017-06-06] MEDS ORDERED: Acetaminophen 325 MG TABLET PO PRN (04:11)
[2017-06-06] MEDS ORDERED: *HR* Dextrose 50 % in Water (Syg) 50 ML SYRINGE IVP PRN (04:11)
[2017-06-06] MEDS ORDERED: Vancomycin 1,000 MG in D5% in Water 250 ML IVPB SCH ×2 (05:00→12:00)
[2017-06-06] MEDS: 0.9 % Sodium Chloride 1,000 ML IVC SCH ×2 (05:06→12:53)
[2017-06-06] MEDS: *HR* Heparin 5,000 UNIT/ML VIAL SQ SCH ×2 (06:36→16:51)
[2017-06-06] MEDS: Insulin LISPRO 300 UNITS/3 ML VIAL SQ SCH ×4 (06:36→20:51)
--- NOTE | 2017-06-06 07:32 | Urology - Consult Note ---
Date of Encounter: 06/06/17 Time of Encounter: 07:29 - Assessment and Plan (1) Ureterolithiasis Current Visit: Yes Status: Acute Assessment and plan: 51-year-old man with a history of a 6 mm right proximal ureteral stone and hydronephrosis. There is also concern for urinary tract infection. However, his urinalysis does not appear infected. Nevertheless, I recommend proceeding with a cystoscopy and right ureteral stent placement. He was informed of the risks of surgery which include but are not limited to bleeding, infection, injury to structures, need for further procedures, stent irritation, need for nephrostomy tube, and the risk of anesthesia. He is willing to proceed. He is currently getting Zosyn and vancomycin for IV antibiotic. Urology CN:HPI Consult date: 06/06/17 Reason for consult Urology: Hydronephrosis History of present illness: 51-year-old man presented with right flank pain, nausea, vomiting, and fevers yesterday to the emergency department. He had a CT scan which showed a right proximal ureteral stone leading to obstruction. He is admitted for IV antibiotic. He still feels nauseated this morning. He denies history of nephrolithiasis. He has a history of B-cell lymphoma. Past Med Surg Social Fam HX - Past Medical History Medical history: cancer, cirrhosis, diabetes, hyperlipidemia, hypertension, malignancy Psychiatric history: no psych history - Past Surgical History Surgical History: orthopedic, other (knee) - Social History Smoking Status: Former smoker Smokeless Tobacco Status: No Alcohol use: none Drug use: none - Family History Mother Adopted: No Living Status: Still Living Hx Family Cardiac Disorders: Yes Hx Family Respiratory Disorders: No Hx Family Cancer: Yes (sister lymphoma) Hx Family GI Disorders: No Hx Family Endocrine Disorder: No Hx Family Neuromuscular Disorders: No Hx Family Neurologic Disorders: No Hx Family HEENT Disorders: No Hx Family Autoimmune Disorders: No Father Living Status: Hx Family GI Disorders: No Hx Family Neurologic Disorders: Yes (stroke) Medications and Allergies Atorvastatin Calcium [Lipitor] 20 mg PO HS 10/26/16 [History] Bupropion HCl [Wellbutrin Xl] 300 mg PO DAILY 10/26/16 [History] Ferrous Sulfate 325 mg PO BIDWM 10/26/16 [History] Metformin HCl [Glucophage] 1,000 mg PO DAILY 10/26/16 [History] SitaGLIPtin [Januvia] 100 mg PO DAILY 10/26/16 [History] Ascorbic Acid [Vitamin C] 500 mg PO DAILY 04/24/17 [History] Cholecalciferol (D-3) [Vitamin D] 1,000 unit PO DAILY 04/24/17 [History] Cyanocobalamin (Vitamin B-12) [Vitamin B12] 1,000 mcg PO DAILY 04/24/17 [History ] Multivitamin [Multi-Day Vitamins] 1 each PO DAILY 04/24/17 [History] Ursodiol [Joshua Forte] 500 mg PO BID 04/24/17 [History] Omeprazole [PriLOSEC] 40 mg PO DAILY@0630 #30 04/25/17 [Rx] Ondansetron ODT [Zofran ODT] 4 mg SL Q6HR PRN #30 tab.rapdis 05/17/17 [Rx] LORazepam [Ativan] 1 - 2 tab PO AD PRN #10 tablet 05/31/17 [Rx] Allopurinol [Zyloprim 300 MG] 300 mg PO DAILY #30 tablet 06/01/17 [Rx] Omeprazole [PriLOSEC] 20 mg PO BIDAC #30 cap 06/05/17 [Rx] Ondansetron ODT [Zofran ODT] 4 mg PO Q4H PRN #30 tab.rapdis 06/05/17 [Rx] Prochlorperazine Maleate [Compazine] 10 mg PO Q6H PRN #30 tablet 06/05/17 [Rx] 3 Allergy/AdvReac Type Severity Reaction Status Date / Time No Known Allergies Allergy Verified 10/26/16 12:52 Review of Systems - Constitutional chills, fever(s), malaise - EENT Nose, mouth and throat: no dizziness - Cardiovascular no chest pain - Respiratory no dyspnea - Gastrointestinal nausea, vomiting - Genitourinary flank pain, no hematuria - Musculoskeletal no back pain - Integumentary no erythema, no rash - Neurological no weakness - Psychiatric no suicidal ideation - Hematologic/Lymphatic no easy bleeding - Allergic/Immunologic no wheezing Exam Initial Vital Signs Temp Pulse Resp BP Pulse Ox 99.8 F H 139 22 105/52 100 06/05/17 22:07 06/05/17 22:07 06/05/17 22:07 06/05/17 22:07 06/05/17 22:07 - General physical appearance Present: well developed, well nourished, no distress - Eyes Absent: icteric - ENT Present: normal mucosa - Neck Present: no masses - Respiratory Present: normal respiratory effort - Cardiovascular Cardiovascular exam IM: RRR - Abdomen Abdomen: Present: soft Urology Results - Labs 06/05/17 23:03 06/05/17 23:03 Abnormal lab results WBC 14.7 K/mcL (4.3-11.1) H D 06/05/17 23:03 RBC 2.50 M/mcL (4.19-5.50) L 06/05/17 23:03 Hgb 7.8 g/dL (12.9-16.9) L 06/05/17 23:03 Hct 23.8 % (37.5-50.1) L 06/05/17 23:03 RDW 16.3 % (11.5-14.5) H 06/05/17 23:03 Plt Count 71 K/mcL (140-400) L 06/05/17 23:03 Band Neutrophils % 12.0 % (0-4) H 06/05/17 23:03 Neutrophils # 14.4 K/mcL (1.6-8.9) H 06/05/17 23:03 Lymphocytes # 0.3 K/mcL (0.6-4.6) L 06/05/17 23:03 Dohle Bodies Present (Not Present) A 06/05/17 23:03 ESR 93 mm/hr (0-10) H 06/05/17 23:03 PT 13.3 Seconds (9.4-12.1) H 06/05/17 23:03 Sodium 133 mEq/L (136-145) L 06/05/17 23:03 Carbon Dioxide 18 mEq/L (19-29) L 06/05/17 23:03 BUN 44 mg/dL (8-26) H 06/05/17 23:03 BUN/Creatinine Ratio 37 (6-26) H 06/05/17 23:03 Glucose 147 mg/dL (70-99) H 06/05/17 23:03 Alkaline Phosphatase 304 Units/L (38-126) H 06/05/17 23:03 Albumin 2.0 g/dL (3.5-5.0) L 06/05/17 23:03 Globulin 4.3 g/dL (2.4-3.5) H 06/05/17 23:03 Albumin/Globulin Ratio 0.5 (1.1-2.2) L 06/05/17 23:03 Urine Clarity Cloudy (Clear) A 06/05/17 22:44 Urine Protein 30 mg/dL (Neg-Trace) H 06/05/17 22:44 Urine Glucose (UA) 100 mg/dL (Normal) H 06/05/17 22:44 Urine Blood Moderate (Negative) H 06/05/17 22:44 Urine Microscopic RBC 5-15 per hpf (0-3) H 06/05/17 22:44 Urine Microscopic WBC 3-5 per hpf (0-3) H 06/05/17 22:44 Ur Squamous Epith Cells Moderate per lpf (None-Few) H 06/05/17 22:44 All other labs normal. - Imaging CT scan - abdomen: report reviewed, image reviewed CT scan - pelvis: report reviewed, image reviewed Consult Discharge Plan - Plan Referrals: Debora Sutton, [employer] [Primary Care Provider] -
[2017-06-06] MEDS ORDERED: Piperacillin/Tazobactam 3.375 GM in D5% in Water (Mini-Bag+) 100 ML IVPB SCH (08:00)
--- NOTE | 2017-06-06 08:44 | Anesthesia Evaluation PreOp ---
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 HX Other Medical History: Renal (CKD stage 2), Diabetes Type II, GERD, Other (B Cell Lymphoma S/P chemo) Anesthesia History: Past Anesthesia Alcohol Use: none Drug use: none Medications and Allergies Atorvastatin Calcium [Lipitor] 20 mg PO HS 10/26/16 [History] Bupropion HCl [Wellbutrin Xl] 300 mg PO DAILY 10/26/16 [History] Ferrous Sulfate 325 mg PO BIDWM 10/26/16 [History] Metformin HCl [Glucophage] 1,000 mg PO DAILY 10/26/16 [History] SitaGLIPtin [Januvia] 100 mg PO DAILY 10/26/16 [History] Ascorbic Acid [Vitamin C] 500 mg PO DAILY 04/24/17 [History] Cholecalciferol (D-3) [Vitamin D] 1,000 unit PO DAILY 04/24/17 [History] Multivitamin [Multi-Day Vitamins] 1 each PO DAILY 04/24/17 [History] Ursodiol [Joshua Forte] 500 mg PO BID 04/24/17 [History] Omeprazole [PriLOSEC] 40 mg PO DAILY@0630 #30 04/25/17 [Rx] Ondansetron ODT [Zofran ODT] 4 mg SL Q6HR PRN #30 tab.rapdis 05/17/17 [Rx] LORazepam [Ativan] 1 - 2 tab PO AD PRN #10 tablet 05/31/17 [Rx] Allopurinol [Zyloprim 300 MG] 300 mg PO DAILY #30 tablet 06/01/17 [Rx] Prochlorperazine Maleate [Compazine] 10 mg PO Q6H PRN #30 tablet 06/05/17 [Rx] 3 Allergy/AdvReac Type Severity Reaction Status Date / Time No Known Allergies Allergy Verified 10/26/16 12:52 - Meds/Allergy Pre-op Review Medications Reviewed: Yes Allergies Reviewed: Yes Beta Blockers on Current Med List: No Anesthesia Results - Labs 06/05/17 23:03 06/05/17 23:03 - Imaging EKG: report reviewed (05/30 2017 SINUS TACHYCARDIA) Anesthesia Exam Vital Signs/O2 Sat/Glucose, Most Recent Temp Pulse Resp BP Pulse Ox 100.3 F H 129 17 103/53 96 06/06/17 07:55 06/06/17 07:55 06/06/17 07:55 06/06/17 07:55 06/06/17 07:55 Blood Glucose* 157 Height: 5'10"/1.78 m Weight: 171 lbs/77.56 kg NPO (# of Hours): 8 Pain Scale: 0 Pain Scale Used: Numeric (1 - 10) - HEENT Pupil (Motor): EOMI Mallampati: III Teeth: Normal Oral Opening: Greater than 3 - SOLDERING MACHINE TENDER LOC: Oriented SOLDERING MACHINE TENDER Motor: Normal RUE, Normal LUE, Normal RLE, Normal LLE, Normal Face SOLDERING MACHINE TENDER Sensory: Normal: RUE, LUE, RLE, LLE, Face - Cardiac Rhythm: Regular Murmur: None - Pulmonary Breath Sounds: bilateral Clear Respiratory Effort: Symmetrical Anesthesia Assess/Plan ASA Score: 3 Modified Griffith Scale for Level of Consciousness: Cooperative, oriented, and tranquil Anesthetic Plan: General Monitoring Plan: Standard Monitors Recovery Plan: PACU
[2017-06-06] MEDS ORDERED: Pantoprazole 40 MG VIAL IVP SCH (09:00)
[2017-06-06] MEDS ORDERED: *HR* Midazolam HCl 2 MG/2 ML VIAL ONE (09:44)
[2017-06-06] MEDS ORDERED: *HR* FentaNYL (PF) 100 MCG/2 ML VIAL ONE (09:44)
[2017-06-06] MEDS ORDERED: *HR* Propofol 200 MG/20 ML VIAL IVP ONE (09:45)
[2017-06-06] MEDS ORDERED: *HR* Succinylcholine 200 MG/10 ML VIAL IVP ONE (09:45)
[2017-06-06] MEDS ORDERED: Lidocaine -MPF 2% 2 ML VIAL ONE (09:50)
--- NOTE | 2017-06-06 09:59 | Operative Note ---
Date of procedure: 06/06/17 Pre-op diagnosis: UTI with right ureteral stone Post-op diagnosis: same Procedure: Cystoscopy and right ureteral stent placement. Implants: 4.8 x 26 cm double-J stent. Complications: None. Anesthesia: ESTEFANIA Surgeon: Pawel Velasquez Estimated blood loss (cc): 1 Specimen: none Condition: stable Disposition: PACU Procedure in Detail: Indications: Mr. Marquis is a 51-year-old male who has a history of nephrolithiasis. He had a CT which showed a right proximal ureteral stone. He elected to undergo a cystoscopy and right ureteral stent placement. He was aware of the risks of the procedure including but not limited to bleeding, infection, injury to other structures, need for further procedures, stent irritation, need for nephrostomy tube, need for open repair, risks otherwise unforeseen, and the risk of anesthesia. He is willing to proceed. Procedure in Detail: After informed consent was obtained the patient was brought back to the operating room and placed in supine position. A time out was performed. General anesthesia was administered and an endotracheal tube was placed. He was then placed in the lithotomy position. He was prepped and draped in the usual sterile fashion. Cystoscopy was performed. The anterior urethra was normal. There was no evidence of bladder tumors. The ureteral orifices were in the normal orthotopic position. There was no duplication of the ureteral orifices. The glide wire was placed in the rightt ureteral orifice. The wire was then brought up into the kidney under fluoroscopic guidance. A 6 Khmer by 26cm JJ stent was then placed. It did not move past the stone. I then had to pass a 4.8 Khmer by 26 cm double-J stent which did move into the kidney. The dangle strings were removed. The bladder was drained. The patient was then awakened from general anesthesia and brought to recovery room in good condition. All sponge, needle, and instrument counts were correct.
[2017-06-06] MEDS ORDERED: Dexamethasone 4 MG/ML VIAL ONE (10:15)
[2017-06-06] MEDS ORDERED: Ondansetron 4 MG/2 ML VIAL ONE (10:15)
[2017-06-06] MEDS ORDERED: *HR* Promethazine 25 MG/ML VIAL IVP PRN (10:53)
[2017-06-06] MEDS ORDERED: *HR* HYDROmorphone (PF) 1 MG/ML SYRINGE IVP PRN (10:53)
--- NOTE | 2017-06-06 11:11 | Anesthesia Evaluation Post Op ---
Date of Encounter: 06/06/17 Time of Encounter: 11:11 - Vital Signs Vital Signs: Vital Signs/O2 Sat, Most Current Temp Pulse Resp BP Pulse Ox 102.0 F H 120 16 110/52 98 06/06/17 10:47 06/06/17 11:07 06/06/17 11:07 06/06/17 11:07 06/06/17 11:07 - Lungs Lungs: Clear Ascult./Percussion - Airway Airway: Non-obstructed - Cardiovascular Regular Rate - Mental Status Mental Status: Alert & Oriented, Answers Appropriately - Pain Pain Scale: 0 Pain Scale used: Numeric (1 - 10) - Nausea Vomiting Nausea Vomiting: Not Present - Hydration Hydration: Tolerates oral liquids, Has not voided - Discharge PostOp Status: Transfer Patient to floor
[2017-06-06 12:19] LABS: Mean Corpuscular Volume 95.9 fL (83.0-100.0); Red Cell Distribution Width 16.6 % (11.5-14.5)
[2017-06-06 12:21] LABS: Hematocrit 18.8 % (37.5-50.1); Hemoglobin 6.2 g/dL (12.9-16.9); Immature Platelets 2.4 % (1.1-6.1); Mean Corpuscular Hemoglobin 31.6 pg (28.0-33.3); Mean Platelet Volume 9.9 fL (9.4-12.4); Red Blood Count 1.96 M/mcL (4.19-5.50)
[2017-06-06 12:22] LABS: Platelet Count 50 K/mcL (140-400)
[2017-06-06 12:33] LABS: Calcium 8.5 mg/dL (8.6-10.8); Carbon Dioxide 15 mEq/L (19-29); Chloride 112 mEq/L (98-109); Glucose 132 mg/dL (70-99); Potassium 4.6 mEq/L (3.5-4.5); Sodium 134 mEq/L (136-145)
[2017-06-06 13:10] LABS: BUN/Creatinine Ratio 31 (6-26); Blood Urea Nitrogen 36 mg/dL (8-26); Osmolality,Calculated 288 (280-300); eGFR For African Americans > 60 (> 60); eGFR For Non-African Americans > 60 (> 60)
[2017-06-06 13:23] LABS: Dohle Bodies Present (Not Present); Lymphocytes # 0.7 K/mcL (0.6-4.6); Neutrophils # 10.7 K/mcL (1.6-8.9); Platelet Estimate Marked Decrease (Normal)
[2017-06-06] MEDS: BuPROPion XL (24 HR) 150 MG TABLET PO SCH (14:25)
[2017-06-06] MEDS: Piperacillin/Tazobactam 3.375 GM in D5% in Water (Mini-Bag+) 100 ML IVPB SCH (17:14)
--- NOTE | 2017-06-06 18:25 | Oncology Inp Consult Note ---
<Micah Corona Jr - Last Filed: 06/06/17 18:42> Date of Encounter: 06/06/17 Time of Encounter: 17:00 Assessment and Plan (1) B-cell lymphoma Status: Acute Assessment and plan: This is a very pleasant 51 old gentleman with recent diagnosis of an aggressive lymphoma. We met the patient during one of his 3 inpatient stays over the last several weeks. He follows Dr Jaylen Hoffman. Diagnosis confirmed, NCCN guidelines were reviewed. Chemo treatment R CHOP 6 cycles every 3 weeks. Cycle 1 to reduce cyclophosphamide to 600 mg/m subsequently increased to 750 mg/m as tolerated Base Elevated uric acid 7.4. Placed on allopurinol 300 mg by mouth at bedtime for tumor lysis prophylaxis He was admitted to hospital again, and had a port placed by interventional radiology on 05/31/2017. First Cycle RCHOP was completed on 06/03/17 as an outpatient at [facility]. With the patient's extent of disease, we were about tumor lysis syndrome. For this reason, we will order a uric acid level and phosphorus level as part of his regular morning labs tomorrow. Right now, he is still groggy from surgery today for right ureteral stent and cystoscopy. The patient does have the ability to urinate, with gross hematuria due to surgery. He did have some fatigue, nausea and diarrhea as part of the side effect 2 days after his first chemotherapy treatment. Right now, continue supportive care with IV fluids, IV antibiotic, symptom management. We will keep an eye out for tumor lysis syndrome while hospitalized. Also, transfuse as needed. Goal Hgb should be >7.0 in the setting of his chronic anemia, recent chemo, and acute loss from surgery. Dr Hoffman advised about plan, and will assess patient tomorrow morning and review labs. Qualifiers: B-cell lymphoma type: unspecified B-cell Lymphoma site: multiple regions Qualified Code(s): C85.18 - Unspecified B-cell lymphoma, lymph nodes of multiple sites (2) Chronic anemia Status: Chronic - Data of Consult Patient: known to practice within the last 3 years Consult date: 06/06/17 Requesting Physician: Darrin Jay MD Primary Care Provider: Debora Sutton CNP - Consult Narrative Reason for consult: Lymphoma on RCHOP, 1st dose 06/03/17 History of present illness: Mr. 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 Received blood transfusions 2 units 04/25/2017 and another 2 units 05/14/2017. Also his thrombocytopenia was getting worse. Platelet counts 111 at [facility] 02/22/[address] 56,000. CT abdomen and pelvis with contrast 05/14/2017 showed retroperitoneal adenopathy stable compared to 02/15/2017. Right side external iliac 2.3 cm left pelvic wall 2.1 cm. Per left retroperitoneal lymph node 2.4 cm He was evaluated at [facility]. Office notes from Dr. Caro dated 02/22/2017. Elevated alkaline phosphatase of 407 02/22/2017. He had significant weight loss since August [address] scan on 02/15/2017 showed hepatosplenomegaly and portal hypertension with varices No liver biopsy done. Primary biliary cirrhosis was in the differential Both AYANNA antimitochondrial antibody negative on January 2017. Bone marrow biopsy by [place] interventional radiology 05/17/2017 showed aggressive B-cell lymphoma with 14:18 translocation. This is consistent with grade 3 follicular lymphoma. This population appears to express CD1 Also large B cells appears to be CD10 negative BCL 6 positive and mom one positive by immunohistochemistry suggestive of non-GCB type. A caveat is immunohistochemistry could be less sensitive for liver expressing CD10. Pathology favors GCB type overall Cytogenetics normal male Negative for BCL 6, MYC rearrangement, MYC amplification IPI score 1 for stage IV disease Diagnosis was an aggressive lymphoma. A component of follicular lymphoma grade 3" also possible diffuse large B-cell lymphoma. Stage IV bone marrow involvement Has significant hepatosplenomegaly. Liver comes almost to the right pelvis. Spleen size 16 cm. By CAT scan no cirrhosis. But evidence of portal hypertension Also retroperitoneal lymph nodes largest 2.5 cm A PET scan was not a complete study in 05/29/2017 lateral cervical buttock adenopathy. Mediastinal adenopathy. Largest on the right neck 1.3 cm. Largest axillary on the right 3.6 cm. Maximum SUV 5.1 Treatment Summary R CHOP 6 cycles every 3 weeks. Cycle 1 to reduce cyclophosphamide to 600 mg/m subsequently increased to 750 mg/m as tolerated Base Elevated uric acid 7.4. Placed on allopurinol 300 mg by mouth at bedtime for tumor lysis prophylaxis He was admitted to hospital again, and had a port placed by interventional radiology on 05/31/2017. We had planned on RCHOP while inpatient. However, first Cycle RCHOP was completed on 06/03/17 at [facility]. Patient developed fever, nause and diarrhea 2 days later, presented to [place] ER tachycardic with fever and leukocytosis with bandemia; suspect GI source in setting of nasuea, emesis and diarrhea. CT AP did demonstrate 6 mm stone in right UPJ with mild hydronephrosis, but UA was not indicative of UTI Card-cultures collected, awaiting results prior to de-escalation Taken to surgery 06/06/17 for right ureteral stent and cystoscopy. Oncology consulted due to recent RCHOp chemo 3 days ago. Past Med Surg Social Fam HX - Past Medical History Medical history: cancer, cirrhosis, diabetes, hyperlipidemia, hypertension, malignancy (lymphoma) Psychiatric history: no psych history - Past Surgical History Surgical History: orthopedic, other (knee) - Social History Smoking Status: Former smoker Smokeless Tobacco Status: No Alcohol use: none Drug use: none - Family History Mother Adopted: No Living Status: Still Living Hx Family Cardiac Disorders: Yes Hx Family Respiratory Disorders: No Hx Family Cancer: Yes (sister lymphoma) Hx Family GI Disorders: No Hx Family Endocrine Disorder: No Hx Family Neuromuscular Disorders: No Hx Family Neurologic Disorders: No Hx Family HEENT Disorders: No Hx Family Autoimmune Disorders: No Father Living Status: Hx Family GI Disorders: No Hx Family Neurologic Disorders: Yes (stroke) Medications and Allergies Atorvastatin Calcium [Lipitor] 20 mg PO HS 10/26/16 [History] Bupropion HCl [Wellbutrin Xl] 300 mg PO DAILY 10/26/16 [History] Ferrous Sulfate 325 mg PO BIDWM 10/26/16 [History] Metformin HCl [Glucophage] 1,000 mg PO DAILY 10/26/16 [History] SitaGLIPtin [Januvia] 100 mg PO DAILY 10/26/16 [History] Ascorbic Acid [Vitamin C] 500 mg PO DAILY 04/24/17 [History] Cholecalciferol (D-3) [Vitamin D] 1,000 unit PO DAILY 04/24/17 [History] Multivitamin [Multi-Day Vitamins] 1 each PO DAILY 04/24/17 [History] Ursodiol [Joshua Forte] 500 mg PO BID 04/24/17 [History] Omeprazole [PriLOSEC] 40 mg PO DAILY@0630 #30 04/25/17 [Rx] Ondansetron ODT [Zofran ODT] 4 mg SL Q6HR PRN #30 tab.rapdis 05/17/17 [Rx] LORazepam [Ativan] 1 - 2 tab PO AD PRN #10 tablet 05/31/17 [Rx] Allopurinol [Zyloprim 300 MG] 300 mg PO DAILY #30 tablet 06/01/17 [Rx] Prochlorperazine Maleate [Compazine] 10 mg PO Q6H PRN #30 tablet 06/05/17 [Rx] 3 Allergy/AdvReac Type Severity Reaction Status Date / Time No Known Allergies Allergy Verified 10/26/16 12:52 Constitutional: Present: fatigue Gastrointestinal: Present: diarrhea, nausea Genitourinary: change in urinary stream, dysuria, flank pain, hematuria Oncology - Exam - Constitutional Vitals: Temp Pulse Resp BP Pulse Ox 97.5 F L 96 18 102/58 98 06/06/17 15:58 06/06/17 15:58 06/06/17 15:58 06/06/17 15:58 06/06/17 15:58 General appearance: cooperative, no acute distress - Head Head exam: Present: atraumatic, normal inspection - Eye Eye exam: Present: normal appearance, PERRL - ENT ENT exam: Present: mucous membranes dry - Neck Neck exam: Present: full ROM, normal inspection - Respiratory Respiratory exam: Present: CTAB - Cardiovascular Cardiovascular exam: Present: RRR, +S1, +S2 - GI/Abdominal GI/Abdominal exam: Present: normal bowel sounds, soft - Extremities Exam Extremities exam: Present: full ROM, pedal edema - Neurological Exam Neurological exam: Present: alert, oriented X3, no focal deficits - Psychiatric Psychiatric exam: Present: normal affect, normal mood - Skin Skin exam: Present: dry, intact, warm Oncology - Results Labs: Short CBC 06/06/17 Range/Units 11:49 WBC 11.4 H (4.3-11.1) K/mcL Hgb 6.2 L D (12.9-16.9) g/dL Hct 18.8 L (37.5-50.1) % Plt Count 50 L (140-400) K/mcL Neutrophils # 10.7 H (1.6-8.9) K/mcL BMP 06/06/17 11:49 Sodium 134 L Potassium 4.6 H Chloride 112 H Carbon Dioxide 15 L BUN 36 H Creatinine 1.17 Glucose 132 H Calcium 8.5 L Consult Discharge Plan - Plan Referrals: Debora Sutton CNP [Primary Care Provider] - 06/13/17 9:45 am (Please follow up as schedule..) <Jaylen Hoffman - Last Filed: 06/07/17 18:47> Date of Encounter: 06/07/17 - Data of Consult Requesting Physician: Darrin Jay MD Primary Care Provider: Debora Sutton CNP - Consult Narrative History of present illness: Mr. Marquis is a 51 year old male Oncology - Exam - Constitutional Vitals: Temp Pulse Resp BP Pulse Ox 97.5 F L 83 16 102/62 98 06/07/17 15:00 06/07/17 15:00 06/07/17 15:00 06/07/17 15:00 06/07/17 15:00 Oncology - Results Labs: Short CBC 06/07/17 Range/Units 17:59 WBC 11.6 H (4.3-11.1) K/mcL Hgb 7.7 L D (12.9-16.9) g/dL Hct 22.9 L (37.5-50.1) % Plt Count 53 L (140-400) K/mcL - Attending Attestation 1. Diffuse large B-cell lymphoma status post cycle 1 on CHOP 06/03/2017. Currently no evidence of tumor lysis syndrome. Uric acid 4.2 and phosphorus 4.6. He is on allopurinol. Anemia. Packed RBC transfusion as clinically necessary. 2. About 6 mm right UVJ stone by CT abdomen and pelvis without contrast on06/06. Evaluated by Dr. Velasquez and right ureteric stent deployed. Renal stone extraction as an outpatient. Current creatinine around 1.2 which is stable from before
--- NOTE | 2017-06-06 18:41 | Internal Med Progress Note ---
Date of Encounter: 06/06/17 Time of Encounter: 11:00 - Assessment and plan (1) Sepsis Current Visit: Yes Status: Acute Assessment and plan: Continue Vanc, Zosyn, IVF. Bolus x2 and resume NS at 120/hr. Stool sample to be obtained for culture. Blood culture pending. Qualifiers: Sepsis type: sepsis due to unspecified organism Qualified Code(s): A41.9 - Sepsis, unspecified organism (2) Chronic anemia Current Visit: Yes Status: Acute Assessment and plan: Acute drop likely dilutional but <7.0. Will transfuse 2 units PRBC. (3) B-cell lymphoma Current Visit: No Status: Chronic Qualifiers: B-cell lymphoma type: unspecified B-cell Lymphoma site: unspecified region Qualified Code(s): C85.10 - Unspecified B-cell lymphoma, unspecified site (4) Chronic kidney disease, stage II (mild) Current Visit: No Status: Chronic - Subjective Interval history: No acute events. Overall feels fatigued. Does have an appetite and ate burger in afternoon. - Constitutional Vitals: Temp Pulse Resp BP Pulse Ox 97.5 F L 96 18 102/58 98 06/06/17 15:58 06/06/17 15:58 06/06/17 15:58 06/06/17 15:58 06/06/17 15:58 General appearance: Present: cooperative, A&O X 3, no acute distress, answers questions appropriately (lethargic, but easily arousable) Exam: CVS: RRR, no mrg Lungs: CTAB Abd: Soft, NT/ND, normoactive bowel sounds. Ext: no edema. Internal Medicine: Result - Labs CBC & Chem 7: 06/06/17 11:49 06/06/17 11:49 Labs: Short CBC 06/06/17 Range/Units 11:49 WBC 11.4 H (4.3-11.1) K/mcL Hgb 6.2 L D (12.9-16.9) g/dL Hct 18.8 L (37.5-50.1) % Plt Count 50 L (140-400) K/mcL Neutrophils # 10.7 H (1.6-8.9) K/mcL BMP 06/06/17 11:49 Sodium 134 L Potassium 4.6 H Chloride 112 H Carbon Dioxide 15 L BUN 36 H Creatinine 1.17 Glucose 132 H Calcium 8.5 L - ABG Interpretation ABG results: PT/INR, D-dimer PT 13.3 Seconds (9.4-12.1) H 06/05/17 23:03 Consult Discharge Plan - Plan Referrals: Debora Sutton, LOG PREPARER [Primary Care Provider] -
[2017-06-06] MEDS: *HR* Morphine 2 MG/ML SYRINGE IVP PRN (22:34)
[2017-06-06] MEDS ORDERED: 0.9 % Sodium Chloride 250 ML ONE (23:21)
[2017-06-07] MEDS ORDERED: 0.9 % Sodium Chloride 250 ML ONE (02:11)
[2017-06-07] MEDS: Piperacillin/Tazobactam 3.375 GM in D5% in Water (Mini-Bag+) 100 ML IVPB SCH ×3 (02:40→17:35)
[2017-06-07] MEDS: *HR* Morphine 2 MG/ML SYRINGE IVP PRN (03:56)
[2017-06-07] MEDS: Ondansetron 4 MG/2 ML VIAL IVP PRN ×2 (03:57→10:19)
[2017-06-07] MEDS: *HR* Heparin 5,000 UNIT/ML VIAL SQ SCH ×2 (06:07→17:31)
[2017-06-07 07:08] LABS: Alanine Aminotransferase 8 Units/L (0-55); Albumin/Globulin Ratio 0.5 (1.1-2.2); Alkaline Phosphatase 225 Units/L (38-126); Aspartate Amino Transferase 9 Units/L (5-34); BUN/Creatinine Ratio 33 (6-26); Bilirubin,Total 0.5 mg/dL (0.2-1.2); Blood Urea Nitrogen 40 mg/dL (8-26); Calcium 8.5 mg/dL (8.6-10.8); Carbon Dioxide 20 mEq/L (19-29); Chloride 108 mEq/L (98-109); Globulin 3.7 g/dL (2.4-3.5); Glucose 332 mg/dL (70-99); Osmolality,Calculated 297 (280-300); Potassium 4.6 mEq/L (3.5-4.5); Sodium 132 mEq/L (136-145); Total Protein 5.4 g/dL (6.0-8.3); eGFR For African Americans > 60 (> 60); eGFR For Non-African Americans > 60 (> 60)
[2017-06-07 07:09] LABS: Albumin 1.7 g/dL (3.5-5.0); Phosphorous 4.6 mg/dL (2.3-4.7); Uric Acid 4.2 mg/dL (3.5-7.2)
--- NOTE | 2017-06-07 07:27 | Urology Progress Note ---
Date of Encounter: 06/07/17 Time of Encounter: 07:27 - Assessment and Plan (1) Ureterolithiasis Current Visit: Yes Status: Acute Assessment and plan: Status post cystoscopy and right ureteral stent placement. We'll plan for definitive right ureteroscopic stone extraction once discharged from the hospital. Progress Note Narrative: Postop day #1 status post cystoscopy and right ureteral stent placement. He is doing well. He is voiding well. No issues overnight. He did receive 2 units of blood for transfusion. Objective Initial Vital Signs Temp Pulse Resp BP Pulse Ox 99.8 F H 139 22 105/52 100 06/05/17 22:07 06/05/17 22:07 06/05/17 22:07 06/05/17 22:07 06/05/17 22:07 - General physical appearance Present: well developed, well nourished, no distress - Respiratory Present: normal respiratory effort - Abdomen Present: soft - Labs 06/06/17 11:49 06/07/17 06:45 Diabetes panel 06/06/17 06/07/17 Range/Units 11:49 06:45 Sodium 134 L 132 L (136-145) mEq/L Potassium 4.6 H 4.6 H (3.5-4.5) mEq/L Chloride 112 H 108 (98-109) mEq/L Carbon Dioxide 15 L 20 (19-29) mEq/L BUN 36 H 40 H (8-26) mg/dL Creatinine 1.17 1.22 (0.72-1.25) mg/dL Glucose 132 H 332 H (70-99) mg/dL Calcium 8.5 L 8.5 L (8.6-10.8) mg/dL AST 9 (5-34) Units/L ALT 8 (0-55) Units/L Alkaline Phosphatase 225 H (38-126) Units/L Albumin 1.7 L (3.5-5.0) g/dL Calcium panel 06/06/17 06/07/17 06/07/17 Range/Units 11:49 06:45 06:45 Calcium 8.5 L 8.5 L (8.6-10.8) mg/dL Phosphorus 4.6 (2.3-4.7) mg/dL Albumin 1.7 L (3.5-5.0) g/dL Pituitary panel 06/06/17 06/07/17 Range/Units 11:49 06:45 Sodium 134 L 132 L (136-145) mEq/L Potassium 4.6 H 4.6 H (3.5-4.5) mEq/L Chloride 112 H 108 (98-109) mEq/L Carbon Dioxide 15 L 20 (19-29) mEq/L BUN 36 H 40 H (8-26) mg/dL Creatinine 1.17 1.22 (0.72-1.25) mg/dL Glucose 132 H 332 H (70-99) mg/dL Calcium 8.5 L 8.5 L (8.6-10.8) mg/dL Adrenal panel 06/06/17 06/07/17 Range/Units 11:49 06:45 Sodium 134 L 132 L (136-145) mEq/L Potassium 4.6 H 4.6 H (3.5-4.5) mEq/L Chloride 112 H 108 (98-109) mEq/L Carbon Dioxide 15 L 20 (19-29) mEq/L BUN 36 H 40 H (8-26) mg/dL Creatinine 1.17 1.22 (0.72-1.25) mg/dL Glucose 132 H 332 H (70-99) mg/dL Calcium 8.5 L 8.5 L (8.6-10.8) mg/dL Total Bilirubin 0.5 (0.2-1.2) mg/dL AST 9 (5-34) Units/L ALT 8 (0-55) Units/L Alkaline Phosphatase 225 H (38-126) Units/L Albumin 1.7 L (3.5-5.0) g/dL - VTE Documentation of Mechanical Device: Intermittent pneumatic compression device Consult Discharge Plan - Plan Referrals: Debora Sutton, BEATER TENDER [Primary Care Provider] -
[2017-06-07] MEDS ORDERED: Insulin DETEMIR 100 UNIT/ML X5UNITS SQ ONE (08:36)
[2017-06-07] MEDS: Insulin LISPRO 300 UNITS/3 ML VIAL SQ SCH ×4 (08:40→22:46)
[2017-06-07] MEDS: BuPROPion XL (24 HR) 150 MG TABLET PO SCH (08:41)
--- NOTE | 2017-06-07 15:59 | Internal Med Progress Note ---
Date of Encounter: 06/07/17 Time of Encounter: 15:00 - Assessment and plan (1) Sepsis Current Visit: Yes Status: Acute Assessment and plan: Continue Vanc, Zosyn, IVF. IVF. Stool sample to be obtained for culture. Blood NGTD, final results pending. Qualifiers: Sepsis type: sepsis due to unspecified organism Qualified Code(s): A41.9 - Sepsis, unspecified organism (2) Chronic anemia Current Visit: Yes Status: Acute Assessment and plan: Status-post 2 units PRBC yesterday. Recheck H&H in AM. (3) B-cell lymphoma Current Visit: No Status: Chronic Qualifiers: B-cell lymphoma type: unspecified B-cell Lymphoma site: unspecified region Qualified Code(s): C85.10 - Unspecified B-cell lymphoma, unspecified site (4) Chronic kidney disease, stage II (mild) Current Visit: No Status: Chronic (5) Non-insulin dependent type 2 diabetes mellitus Current Visit: Yes Status: Chronic Assessment and plan: Adding basal insulin 20 units Levemir, and 5 units humalog with meals. Will monitor over 24 hours and adjust accordingly. Goal serum glucose 140-180 - Subjective Interval history: Patient ate a lot of solid foods yesterday including hamburgers. In the morning he was nauseated and was vomited. - Constitutional Vitals: Temp Pulse Resp BP Pulse Ox 97.5 F L 83 16 102/62 98 06/07/17 15:00 06/07/17 15:00 06/07/17 15:00 06/07/17 15:00 06/07/17 15:00 General appearance: Present: cooperative, A&O X 3, no acute distress, answers questions appropriately (mental status improved, more alert) Exam: CVS: RRR Lungs: CTAB Abd: NT/ND, soft Ext: no edema Internal Medicine: Result - Labs CBC & Chem 7: 06/07/17 17:59 06/07/17 06:45 - ABG Interpretation ABG results: PT/INR, D-dimer PT 13.3 Seconds (9.4-12.1) H 06/05/17 23:03 - VTE Documentation of Mechanical Device: Intermittent pneumatic compression device Consult Discharge Plan - Plan Referrals: Debora Sutton CNP [Primary Care Provider] - 06/13/17 9:45 am (Please follow up as schedule..)
[2017-06-07] MEDS ORDERED: Insulin LISPRO 300 UNITS/3 ML VIAL SQ SCH (17:00)
[2017-06-07 18:20] LABS: Eosinophils % 0.1 %; Hemoglobin 7.7 g/dL (12.9-16.9)
[2017-06-07 18:21] LABS: Basophils % 0.3 %; Hematocrit 22.9 % (37.5-50.1); Immature Granulocytes % 22.6 % (0-4); Lymphocytes # 0.7 K/mcL (0.6-4.6); Lymphocytes % 6.3 %; Mean Corpuscular HGB Conc 33.6 g/dL (31.6-35.5); Mean Corpuscular Hemoglobin 31.7 pg (28.0-33.3); Mean Corpuscular Volume 94.2 fL (83.0-100.0); Monocytes # 0.1 K/mcL (0.0-1.3); Monocytes % 0.6 %; Neutrophils # 8.1 K/mcL (1.6-8.9); Red Blood Count 2.43 M/mcL (4.19-5.50); Red Cell Distribution Width 16.6 % (11.5-14.5); Segmented Neutrophils % 70.1 %
[2017-06-07 18:28] LABS: Platelet Count 53 K/mcL (140-400)
[2017-06-07 19:48] LABS: Anisocytosis 1+ (Not Present); Platelet Estimate Marked Decrease (Normal)
[2017-06-08] MEDS ORDERED: traZODone 50 MG TABLET PO PRN (02:02)
[2017-06-08] MEDS: Piperacillin/Tazobactam 3.375 GM in D5% in Water (Mini-Bag+) 100 ML IVPB SCH (02:59)
[2017-06-08 07:35] LABS: BUN/Creatinine Ratio 29 (6-26); Blood Urea Nitrogen 33 mg/dL (8-26); Calcium 8.7 mg/dL (8.6-10.8); Carbon Dioxide 23 mEq/L (19-29); Chloride 111 mEq/L (98-109); Glucose 107 mg/dL (70-99); Osmolality,Calculated 296 (280-300); Potassium 4.1 mEq/L (3.5-4.5); eGFR For African Americans > 60 (> 60); eGFR For Non-African Americans > 60 (> 60)
[2017-06-08 07:39] LABS: Sodium 139 mEq/L (136-145)
[2017-06-08 08:02] LABS: Mean Corpuscular Volume 94.4 fL (83.0-100.0)
[2017-06-08 08:04] LABS: Hematocrit 25.1 % (37.5-50.1); Hemoglobin 8.2 g/dL (12.9-16.9); Immature Platelets 2.3 % (1.1-6.1); Mean Corpuscular HGB Conc 32.7 g/dL (31.6-35.5); Mean Corpuscular Hemoglobin 30.8 pg (28.0-33.3); Mean Platelet Volume 10.1 fL (9.4-12.4); Platelet Count 50 K/mcL (140-400); Red Blood Count 2.66 M/mcL (4.19-5.50); Red Cell Distribution Width 16.6 % (11.5-14.5)
[2017-06-08 08:29] LABS: Eosinophils # 0.1 K/mcL (0.0-0.6); Neutrophils # 7.8 K/mcL (1.6-8.9)
[2017-06-08 08:30] LABS: Platelet Estimate Marked Decrease (Normal)
[2017-06-08] MEDS: Insulin LISPRO 300 UNITS/3 ML VIAL SQ SCH (08:33)
[2017-06-08] MEDS ORDERED: *HR* Morphine 2 MG/ML SYRINGE IVP PRN (08:37)
[2017-06-08] MEDS ORDERED: D5% in Water 1,000 ML IVC PRN ×2 (08:37→08:42)
[2017-06-08] MEDS ORDERED: Naloxone 0.4 MG/ML INJ IVP PRN (08:37)
[2017-06-08] MEDS ORDERED: *HR* Dextrose 50 % in Water (Syg) 50 ML SYRINGE IVP PRN (08:37)
[2017-06-08] MEDS ORDERED: Acetaminophen 325 MG TABLET PO PRN (08:37)
[2017-06-08] MEDS ORDERED: Ondansetron 4 MG/2 ML VIAL IVP PRN (08:37)
[2017-06-08] MEDS ORDERED: Dextrose Gel 15 GM PO PRN ×2 (08:37)
[2017-06-08] MEDS ORDERED: Insulin DETEMIR 100 UNIT/ML X5UNITS SQ SCH ×2 (09:00→12:00)
[2017-06-08] MEDS ORDERED: BuPROPion XL (24 HR) 150 MG TABLET PO SCH (09:00)
[2017-06-08 11:11] VITALS: BP 99/62
--- NOTE | 2017-06-08 11:22 | Urology Progress Note ---
Date of Encounter: 06/08/17 Time of Encounter: 11:21 - Assessment and Plan (1) Ureterolithiasis Current Visit: Yes Status: Acute Assessment and plan: Status post right ureteral stent placement. He is doing well. I will arrange for ureteroscopic stone extraction as an outpatient. We will call to schedule. Urology will sign off. Please call questions. Progress Note Narrative: Doing well after right ureteral stent placement. I will transition him to oral antibiotic. He has been afebrile. Objective Initial Vital Signs Temp Pulse Resp BP Pulse Ox 99.8 F H 139 22 105/52 100 06/05/17 22:07 06/05/17 22:07 06/05/17 22:07 06/05/17 22:07 06/05/17 22:07 - General physical appearance Present: well developed, well nourished, no distress - Respiratory Present: normal respiratory effort - Abdomen Present: soft - Labs 06/08/17 07:16 06/08/17 07:16 Diabetes panel 06/08/17 Range/Units 07:16 Sodium 139 D (136-145) mEq/L Potassium 4.1 (3.5-4.5) mEq/L Chloride 111 H (98-109) mEq/L Carbon Dioxide 23 (19-29) mEq/L BUN 33 H (8-26) mg/dL Creatinine 1.12 (0.72-1.25) mg/dL Glucose 107 H (70-99) mg/dL Calcium 8.7 (8.6-10.8) mg/dL Calcium panel 06/08/17 Range/Units 07:16 Calcium 8.7 (8.6-10.8) mg/dL Pituitary panel 06/08/17 Range/Units 07:16 Sodium 139 D (136-145) mEq/L Potassium 4.1 (3.5-4.5) mEq/L Chloride 111 H (98-109) mEq/L Carbon Dioxide 23 (19-29) mEq/L BUN 33 H (8-26) mg/dL Creatinine 1.12 (0.72-1.25) mg/dL Glucose 107 H (70-99) mg/dL Calcium 8.7 (8.6-10.8) mg/dL Adrenal panel 06/08/17 Range/Units 07:16 Sodium 139 D (136-145) mEq/L Potassium 4.1 (3.5-4.5) mEq/L Chloride 111 H (98-109) mEq/L Carbon Dioxide 23 (19-29) mEq/L BUN 33 H (8-26) mg/dL Creatinine 1.12 (0.72-1.25) mg/dL Glucose 107 H (70-99) mg/dL Calcium 8.7 (8.6-10.8) mg/dL - VTE Documentation of Mechanical Device: Intermittent pneumatic compression device Consult Discharge Plan - Plan Referrals: Debora Sutton, RYNE [Primary Care Provider] - 06/13/17 9:45 am (Please follow up as schedule..)
[2017-06-08] MEDS ORDERED: Insulin LISPRO 300 UNITS/3 ML VIAL SQ SCH ×4 (11:30→21:00)
--- NOTE | 2017-06-08 12:27 | Discharge Summary ---
Date of Encounter: 06/08/17 Time of Encounter: 12:13 - Discharge Diagnosis (1) Sepsis Priority: Primary Status: Resolved Comments: Suspected from GI source. Qualifiers: Sepsis type: sepsis due to unspecified organism Qualified Code(s): A41.9 - Sepsis, unspecified organism (2) Chronic anemia Priority: Secondary Status: Acute Comments: He did require 2 units of PRBC as his hemoglobin dropped to 6.8. Hemoglobin then improved. (3) B-cell lymphoma Priority: Secondary Status: Chronic Qualifiers: B-cell lymphoma type: unspecified B-cell Lymphoma site: unspecified region Qualified Code(s): C85.10 - Unspecified B-cell lymphoma, unspecified site (4) Chronic kidney disease, stage II (mild) Priority: Secondary Status: Chronic (5) Non-insulin dependent type 2 diabetes mellitus Priority: Secondary Status: Chronic - Discharge Medications Prescriptions: Ciprofloxacin [Cipro] 500 mg PO BID #14 tablet Ciprofloxacin HCl [Cipro] 500 mg PO BID #22 tablet metroNIDAZOLE [Flagyl] 500 mg PO TID #33 tablet Home Medications: Atorvastatin Calcium [Lipitor] 20 mg PO HS 10/26/16 [History] Bupropion HCl [Wellbutrin Xl] 300 mg PO DAILY 10/26/16 [History] Ferrous Sulfate 325 mg PO BIDWM 10/26/16 [History] Metformin HCl [Glucophage] 1,000 mg PO DAILY 10/26/16 [History] SitaGLIPtin [Januvia] 100 mg PO DAILY 10/26/16 [History] Ascorbic Acid [Vitamin C] 500 mg PO DAILY 04/24/17 [History] Cholecalciferol (D-3) [Vitamin D] 1,000 unit PO DAILY 04/24/17 [History] Multivitamin [Multi-Day Vitamins] 1 each PO DAILY 04/24/17 [History] Ursodiol [Joshua Forte] 500 mg PO BID 04/24/17 [History] Omeprazole [PriLOSEC] 40 mg PO DAILY@0630 #30 04/25/17 [Rx] Ondansetron ODT [Zofran ODT] 4 mg SL Q6HR PRN #30 tab.rapdis 05/17/17 [Rx] LORazepam [Ativan] 1 - 2 tab PO AD PRN #10 tablet 05/31/17 [Rx] Allopurinol [Zyloprim 300 MG] 300 mg PO DAILY #30 tablet 06/01/17 [Rx] Prochlorperazine Maleate [Compazine] 10 mg PO Q6H PRN #30 tablet 06/05/17 [Rx] Ciprofloxacin HCl [Cipro] 500 mg PO BID #22 tablet 06/08/17 [Rx] Ciprofloxacin [Cipro] 500 mg PO BID #14 tablet 06/08/17 [Rx] metroNIDAZOLE [Flagyl] 500 mg PO TID #33 tablet 06/08/17 [Rx] Allergies/Adverse Reactions: 3 Allergy/AdvReac Type Severity Reaction Status Date / Time No Known Allergies Allergy Verified 10/26/16 12:52 Date of admission: 06/07/17 12:38 Primary care physician: Debora Sutton CNP Discharging clinician: Darrin Jay - Patient Status Disposition: Home, Self-Care Condition: Fair - Discharge Instructions Instructions: Ciprofloxacin (By mouth), Metronidazole (By mouth), Diabetes Mellitus Type 2 in Adults (DC), Anemia (GEN) Follow Up With: Debora Sutton CNP [Primary Care Provider] - 06/13/17 9:45 am (Please follow up as schedule..) - Diet and Activity Activity: increase activity as tolerated Diet: advance to your usual diet Interval History: 51-year-old male history of non-Hodgkin's lymphoma recently diagnosed who started chemotherapy 5 days ago presents to the ER due to fever chills nausea vomiting and diarrhea. He woke up on the day of admission with a fever of 101.8. He reports feeling nauseated as well as having nonbloody nonbilious vomiting as well as nonbloody diarrhea. He denies any abdominal pain. He had leukocytosis, borderline low blood pressure, and PEARL. He was found to have hydronephrosis due to a renal stone. He was admitted for further evaluation and started on Vanc and Zosyn. Blood cultures were obtained. Urology was consulted to evaluate if source of infection was related to urolithiasis/ hydronephrosis. Hospital course: Patient had IV fluids after 3 L bolus and blood pressure gradually improved. He was able to tolerate a diet within two days. He underwent a cystoscopy and right ureteral stent placement without issue. He was afebrile, leukocytosis resolved and renal function was improving to near baseline level. He did require 2 units of PRBC after chronic anemia became more profound with hemodilution of IVF repletion. It remained stable after fluids were held, there were no signs of active bleed. Blood cultures to date are negative. He was treated with Vancomycin and Zosyn for a total of 3 days. Cultures and stool cultures were were ordered however no stool sample was able to be obtained. He was discharged home with 11 days course of Cipro and Flagyl to complete 14 days total of treatment. He has a scheduled follow-up appointment with Urology. - Time Spent with Patient Total time spent providing and/or coordinating discharge services: - Constitutional Vitals: Temp Pulse Resp BP Pulse Ox 97.6 F 76 16 99/62 99 06/08/17 11:06 06/08/17 11:06 06/08/17 11:06 06/08/17 11:06 06/08/17 11:06 General appearance: Present: cooperative, A&O X 3, no acute distress, answers questions appropriately (mental status improved, more alert) - VTE Documentation of Mechanical Device: Intermittent pneumatic compression device
[2017-06-08] MEDS ORDERED: Piperacillin/Tazobactam 3.375 GM in D5% in Water (Mini-Bag+) 100 ML IVPB SCH (16:00)
[2017-06-08] MEDS ORDERED: *HR* Heparin 5,000 UNIT/ML VIAL SQ SCH (18:00)
== END 2017-06-08 15:45 | disposition home or self-care (01) | DRG 871 ==
LOC: 2ANU 22:05 → EMEROO 22:05 → 2ANU 06-06 04:21
PROVIDERS: ADMIT Internal Medicine; ATTEND Student in an Organized Health Care Education/Training Program